=== PATIENT | female | born 1950 | race Caucasian/White ===

== ENCOUNTER 2017-01-15 19:32 | Emergency (ER) | payer MEDICARE ==
[2017-01-15] MEDS ORDERED: predniSONE 20 MG TAB ONE (20:48)
== END 2017-01-15 21:00 | disposition home or self-care (01) ==
LOC: ERS 19:32
DX: T78.40XA Allergy, unspecified, initial encounter (principal); G47.30 Sleep apnea, unspecified; I11.0 Hypertensive heart disease with heart failure; I50.9 Heart failure, unspecified; E78.5 Hyperlipidemia, unspecified
CPT/HCPCS: 99282; J7506

== ENCOUNTER 2017-02-02 06:11 | Inpatient (IN) | payer MEDICARE ==
[2017-02-02 07:27] LABS: #Lymphocytes 0.3 thou/uL (1.20-3.40); #Monocytes 0.3 thou/uL (0.11-0.59); #Neutrophils 7.7 thou/uL (1.40-6.50); %Basophils 0.1 % (0.0-1.0); %Eosinophils 0.4 % (0.0-10.0); %Lymphocytes 3.4 % (21.0-51.0); %Monocytes 3.7 % (0.0-10.0); Hematocrit 33.5 % (36.0-47.0); Mean Platelet Volume 7.8 fL (7.4-10.4); Red Blood Cell (RBC) Count 3.66 mill/uL (4.20-5.40); White Blood Cell (WBC) Count 8.4 thou/uL (4.8-10.8)
[2017-02-02 07:42] LABS: Prothrombin Time 12.7 SEC (12.0-14.7)
[2017-02-02 07:50] LABS: ALT (SGPT) 30 U/L (8-55); AST (SGOT) 46 U/L (5-34); Alkaline Phosphatase 113 U/L (40-150); Anion Gap 15 mmol/L (10-20); BUN (Urea Nitrogen) 35 mg/dL (9.8-20.1); Bilirubin, Total 0.8 mg/dL (0.2-1.2); Calc. Creatinine Clearance 0 mL/min (70-130); Carbon Dioxide 24 mmol/L (23-31); Chloride 105 mmol/L (98-107); Estimated GFR-MDRD 57; Protein, Total 6.7 g/dL (6.0-8.3)
[2017-02-02 07:53] LABS: Troponin I Less than 0.010 ng/mL (< 0.028)
[2017-02-02 09:28] LABS: Bilirubin Negative (Negative); Blood, Urine Negative (Negative); Glucose, Urine (Dipstick) Negative (Negative); Ketone, Urine 15 mg/dL (Negative); Nitrite Negative (Negative); Protein, Urine (Dipstick) Trace mg/dL (Neg-Trace)
--- NOTE | 2017-02-02 09:51 | ULT ---
BILATERAL LOWER EXTREMITY VENOUS DUPLEX EXAM: History Bilateral lower extremity pain and edema. FINDINGS: Real-time color Doppler evaluation of the right and left lower extremities was performed from groin t o calf. This includes evaluation of the common femoral, superficial and profunda femoral, saphenous, popliteal, and trifurcation veins. This shows patent deep venous systems bilaterally. There is nor mal compressibility and augmentation. There is no evidence of DVT. IMPRESSION: No evidence of deep vein thrombosis of either lower extremity. POS: JEREMI[facility]
--- NOTE | 2017-02-02 10:04 | RAD ---
CHEST PORTABLE 1 VIEW: COMPARISON: 05/16/16 study. HISTORY: Shortness of breath. FINDINGS: Heart size appears slightly enlarged. There are increased perihilar lung markings with more confluen t infiltrate give to the right upper lobe and right base. IMPRESSION: Cardiomegaly with increased perihilar lung markings. Some of this could be related to edema, but I w ould favor that there is either coexistent pneumonia or all of these changes represent a pneumonic pr ocess. There is a more confluent right upper lobe parenchymal change which does not have the appeara nce of edema and some bibasilar lung changes also present greater in the right base. POS: [facility]
[2017-02-02] MEDS ORDERED: Furosemide 20 MG/2 ML VIAL ONE (10:39)
--- NOTE | 2017-02-02 12:05 | HP ---
HISTORY OF PRESENT ILLNESS: Mrs. Manuel is a 66 years old woman. She came to this facilit y earlier today, because of increasing shortness of breath, which she has been experimenting for the last 4 days or so. She denies any associated fever. Denies any chest pain, and also she has been lance ving some dry cough. She has been admitted for evaluation and management. PAST MEDICAL HISTORY: Remarkable for hypertension, diabetes mellitus, congestive heart failure, and also peptic ulcer disease. She does also have a history of gastroesophageal reflux disease. PAST SURGICAL HISTORY: Remarkable for hysterectomy, gastric bypass, podiatric surgery involving the right foot, and also tonsillectomy. ALLERGIES: She claims to have allergies to PENICILLIN, DARVON, DEMEROL, and also ADHESIVE TAPES. SOCIAL HISTORY: She denies any history of cigarette smoking. Denies EtOH abuse. Denies drug abuse. FAMILY HISTORY: Reviewed and is not contributory. REVIEW OF SYSTEMS: Constitutional: Denies any fever. Denies any weakness. HEENT: She does have h eadache on and off. No ocular pain. No sore throat, no rhinorrhea, no earache, no epistaxis. Neck: No neck pain, no neck stiffness. Cardiovascular: Admits to shortness of breath. No chest pain. Pulmonary: Dry cough. Gastrointestinal: No nausea. No vomiting. She had diarrhea 2 days ago. Mu sculoskeletal: Admits to arthritis. Skin: No rash. No itching. Hematology: No abnormal bleeding , no ecchymosis. Lymphatic: No palpable lymphadenopathy, no painful lymphadenopathy. Endocrinology : No heat or cold intolerance. No polyuria, polydipsia, polyphagia. Allergies: No hayfever. Psyc hiatric: No anxiety and no depression. Neurological: No seizure. Genitourinary: Some dysuria. S he was treated for UTI recently. PHYSICAL EXAMINATION: GENERAL: At the current time, she is alert, oriented, morbidly obese, dyspneic at rest, receiving ox ygen via nasal cannula. LATEST VITAL SIGNS: Show a temperature of 98.7, pulse rate 88, respiratory rate 16, blood pressure 1 48/74. HEENT: Her head is normocephalic and atraumatic. Both her pupils are equally reactive. Ears and no se normal. Oral mucosa is moist. Pharyngeal area is clear with no exudate, no hyperemia. NECK: Supple. There is no distention of jugular vein. No lymphadenopathy felt. Thyroid gland not palpable. There is no carotid bruit. CHEST: Symmetrical with regular S1, S2. LUNGS: Clear. ABDOMEN: Soft. Bowel sounds heard. We could not appreciate any organomegaly. There is no focal ar ea of tenderness. EXTREMITIES: Limbs show no edema. She has varicose vein in both lower extremities. NEUROLOGICAL: She moves all extremities well. LABORATORY DATA: Her CBC showed WBC of 8.4, hemoglobin of 10.7, hematocrit of 32.5, MCV of 91.5, ty telets of 178. PT was noticed to be 12.7. Chemistry and electrolytes show sodium of 140, potassium 3.9, chloride 105, CO2 of 24, BUN 35, creatinine 0.97, glucose 131, calcium 9, magnesium 1.8, total b ilirubin 0.8, AST 46, ALT 30, alkaline phosphatase 113. Troponin less than 0.01. BNP is 238. Total protein 6.7, albumin 3.7, globulin 3.0. Urinalysis shows specific gravity of 1.015, pH of 7, ketone s 15 mg per deciliter, and nitrite negative, leukocyte esterase negative. Chest x-ray was reported t o show a slightly enlarged heart and also very increased perihilar markings which, according to her r eport, can be edema and also associated with coexistent pneumonia, which involved in the right upper lobe. I did review her chest x-ray. She has diffuse right upper lobe infiltrate suggestive of possi ble aspiration and I did talk to the patient, who described some symptoms consistent with aspiration and also some edema, associated congestive heart failure according to our estimate. ASSESSMENT: This is a 66 years old woman with history of hypertension; diabetes mellitus; congestive heart failure; peptic ulcer disease; morbid obesity, status post gastric bypass, remote; w ho has been admitted with increasing shortness of breath. Chest x-ray shows right upper lobe pneumon ia, suggests possibly aspiration along with chronic heart failure. Patient will be admitted to telem etry floor. Please see orders.
[2017-02-02] MEDS ORDERED: cefTRIAXone Sodium 1,000 MG in Syringe 0 ML IVPB SCH (13:08)
[2017-02-02 14:26] VITALS: BMI 57.5
[2017-02-02 14:38] LABS: Troponin I 0.013 ng/mL (< 0.028)
[2017-02-02] MEDS: Gabapentin 300 MG CAP PO SCH ×2 (14:57→21:03)
[2017-02-02] MEDS: metroNIDAZOLE 500 MG in Premix Bag 1 BAG IVPB SCH ×2 (14:57→21:03)
[2017-02-02] MEDS: Furosemide 20 MG/2 ML VIAL SLOW IVP SCH (14:58)
[2017-02-02] MEDS: Pramipexole Di-HCl 1 MG TAB PO SCH (21:03)
[2017-02-02] MEDS: Pravastatin Sodium 40 MG TAB PO SCH (21:03)
[2017-02-03] MEDS: metroNIDAZOLE 500 MG in Premix Bag 1 BAG IVPB SCH ×4 (02:40→20:20)
[2017-02-03] MEDS: Levothyroxine Sodium 25 MCG TAB PO SCH (06:21)
[2017-02-03] MEDS: Furosemide 20 MG/2 ML VIAL SLOW IVP SCH ×2 (06:21→14:14)
[2017-02-03] MEDS: Gabapentin 300 MG CAP PO SCH ×3 (08:40→20:19)
[2017-02-03] MEDS: Enoxaparin Sodium 40 MG/0.4 ML SYRINGE SC SCH (08:40)
[2017-02-03] MEDS: Magnesium Oxide 400 MG TAB PO SCH (08:40)
[2017-02-03 10:40] LABS: #Eosinphils 0.1 thou/uL (0.0-0.7); #Lymphocytes 0.6 thou/uL (1.20-3.40); #Monocytes 0.4 thou/uL (0.11-0.59); #Neutrophils 4.9 thou/uL (1.40-6.50); %Basophils 0.1 % (0.0-1.0); %Eosinophils 1.7 % (0.0-10.0); %Lymphocytes 10.4 % (21.0-51.0); %Monocytes 6.6 % (0.0-10.0); Hematocrit 35.3 % (36.0-47.0); Mean Platelet Volume 7.4 fL (7.4-10.4); Red Blood Cell (RBC) Count 3.81 mill/uL (4.20-5.40); White Blood Cell (WBC) Count 6.1 thou/uL (4.8-10.8)
[2017-02-03] MEDS: cefTRIAXone\\ROCEPHIN 1 GM, Syringe 0.4 ML in Sterile Water 9.6 ML SLOW IVP SCH (10:48)
[2017-02-03 11:02] LABS: Anion Gap 10 mmol/L (10-20); BUN (Urea Nitrogen) 23 mg/dL (9.8-20.1); Calc. Creatinine Clearance 103 mL/min (70-130); Calcium 8.8 mg/dL (7.8-10.44); Carbon Dioxide 30 mmol/L (23-31); Chloride 102 mmol/L (98-107); Estimated GFR-MDRD 51
--- NOTE | 2017-02-03 13:15 | PDOC.PN ---
- Subjective Encounter Start Date: 02/03/17 Encounter Start Time: 13:14 -: old records requested/rev Pt seen and examined - Objective Resuscitation Status: Resuscitation Status FULL:Full Resuscitation MAR Reviewed: Yes Vital Signs & Weight: Vital Signs (12 hours) Temp Pulse Resp BP Pulse Ox 02/03/17 11:50 98.3 F 71 14 130/58 L 96 02/03/17 09:43 97.9 F 81 14 126/74 95 02/03/17 08:40 97.9 F 81 14 95 02/03/17 08:06 97.5 F L 70 16 182/62 H 92 L 02/03/17 04:00 98 F 76 16 120/63 97 Weight Weight 285 lb I&O: 02/02/17 02/03/17 02/04/17 06:59 06:59 06:59 Intake Total 1465 Output Total 200 Balance 1265 Result Diagrams: 02/03/17 10:32 02/03/17 10:32 Additional Labs: Accuchecks 02/03/17 11:12 POC Glucose 153 H Radiology Reviewed by me: Yes (2V CXR today markedly improved) EKG Reviewed by me: Yes Phys Exam - Physical Examination Constitutional: NAD HEENT: PERRLA, moist MMs, sclera anicteric, oral pharynx no lesions Neck: no nodes, no JVD, supple Respiratory: no wheezing, no rhonchi faint bibasilar and right posterior upper rales Cardiovascular: RRR, no rub 3/6 HSM RUSB Gastrointestinal: soft, non-tender, no distention, positive bowel sounds Musculoskeletal: pulses present, edema present Neurological: non-focal, normal sensation, moves all 4 limbs Lymphatic: no nodes Psychiatric: normal affect, A&O x 3 Skin: no rash, normal turgor, cap refill <2 seconds Dx/Plan (1) Acute on chronic systolic CHF (congestive heart failure) Code(s): I50.23 - ACUTE ON CHRONIC SYSTOLIC (CONGESTIVE) HEART FAILURE Status : Acute (2) Essential hypertension Code(s): I10 - ESSENTIAL (PRIMARY) HYPERTENSION Status: Chronic (3) Physical deconditioning Code(s): R53.81 - OTHER MALAISE Status: Chronic (4) Diabetes mellitus Code(s): E11.9 - TYPE 2 DIABETES MELLITUS WITHOUT COMPLICATIONS Status: Chronic Qualifiers: Diabetes mellitus type: type 2 Diabetes mellitus complication status: without complication 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 insulin use: without intermediate use Qualified Code(s): E11.9 - Type 2 diabetes mellitus without complications (5) HLD (hyperlipidemia) Code(s): E78.5 - HYPERLIPIDEMIA, UNSPECIFIED Status: Chronic Qualifiers: Hyperlipidemia type: unspecified Qualified Code(s): E78.5 - Hyperlipidemia , unspecified (6) HTN (hypertension) Code(s): I10 - ESSENTIAL (PRIMARY) HYPERTENSION Status: Chronic Qualifiers: Hypertension type: essential hypertension Qualified Code(s): I10 - Essential (primary) hypertension (7) Morbid obesity Code(s): E66.01 - MORBID (SEVERE) OBESITY DUE TO EXCESS CALORIES Status: Chronic (8) JONATHAN (obstructive sleep apnea) Code(s): G47.33 - OBSTRUCTIVE SLEEP APNEA (ADULT) (PEDIATRIC) Status: Chronic - Plan cont current plan of care, 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 doubt CAP, CXR markedly improved overnight, good UOP. get accurate daily weight and I/Os. Echo pending. if abnormal or changed, will ask Dr Worthy to evaluate. If stable, then home in 102 days. biomarkers negative. No fever , WBC normal. AM labs ordered
--- NOTE | 2017-02-03 13:54 | RAD ---
PA AND LATERAL OF THE CHEST: INDICATION: Shortness of breath, dyspnea on exertion. FINDINGS: There is airspace consolidation of the right upper lobe and portions of the right lower lobe. The le ft lung is clear. There is cardiomegaly. No acute osseous abnormality is evident. IMPRESSION: Right lung pneumonia. Radiographic followup to resolution is recommended. POS: [facility]
[2017-02-03] MEDS: Nystatin Powder 15 GM BOT TOP PRN (14:15)
[2017-02-03] MEDS: Pramipexole Di-HCl 1 MG TAB PO SCH (20:20)
[2017-02-03] MEDS: Pravastatin Sodium 40 MG TAB PO SCH (20:20)
[2017-02-04] MEDS: metroNIDAZOLE 500 MG in Premix Bag 1 BAG IVPB SCH ×2 (02:20→08:36)
[2017-02-04 04:39] LABS: #Eosinphils 0.1 thou/uL (0.0-0.7); #Lymphocytes 0.6 thou/uL (1.20-3.40); #Monocytes 0.5 thou/uL (0.11-0.59); #Neutrophils 3.2 thou/uL (1.40-6.50); %Basophils 0.1 % (0.0-1.0); %Eosinophils 2.2 % (0.0-10.0); %Lymphocytes 13.3 % (21.0-51.0); %Monocytes 10.4 % (0.0-10.0); Hematocrit 30.5 % (36.0-47.0); Mean Platelet Volume 8.1 fL (7.4-10.4); Red Blood Cell (RBC) Count 3.32 mill/uL (4.20-5.40); White Blood Cell (WBC) Count 4.3 thou/uL (4.8-10.8)
[2017-02-04 05:06] LABS: Anion Gap 12 mmol/L (10-20); BUN (Urea Nitrogen) 25 mg/dL (9.8-20.1); Calc. Creatinine Clearance 111 mL/min (70-130); Calcium 8.2 mg/dL (7.8-10.44); Carbon Dioxide 31 mmol/L (23-31); Chloride 101 mmol/L (98-107); Estimated GFR-MDRD 56
[2017-02-04] MEDS: Levothyroxine Sodium 25 MCG TAB PO SCH (06:14)
[2017-02-04] MEDS: Furosemide 20 MG/2 ML VIAL SLOW IVP SCH ×2 (06:14→15:01)
[2017-02-04] MEDS: Gabapentin 300 MG CAP PO SCH ×3 (08:32→20:10)
[2017-02-04] MEDS: Enoxaparin Sodium 40 MG/0.4 ML SYRINGE SC SCH (08:33)
[2017-02-04] MEDS: Magnesium Oxide 400 MG TAB PO SCH (08:37)
[2017-02-04] MEDS: cefTRIAXone\\ROCEPHIN 1 GM, Syringe 0.4 ML in Sterile Water 9.6 ML SLOW IVP SCH (10:22)
--- NOTE | 2017-02-04 12:14 | PDOC.PN ---
- Subjective Encounter Start Date: 02/04/17 Encounter Start Time: 10:15 PT did well overnight, breathing better today. PT is tired as she just got done with PT/OT. PT recommended HHC with PT/OT, ordered qand set up with [facility] for discharge. No F/c, no N/V/D/c,no CP, dome LOWE, no orthopnea or PND, no cough or sputum 10 point ROS performed and neg for all systems except as per HPI above - Objective Resuscitation Status: Resuscitation Status FULL:Full Resuscitation MAR Reviewed: Yes Vital Signs & Weight: Vital Signs (12 hours) Temp Pulse Resp BP Pulse Ox 02/04/17 08:37 98.3 F 75 16 94 L 02/04/17 08:00 98.3 F 75 16 123/63 94 L 02/04/17 04:00 98.1 F 69 16 108/61 92 L Weight Weight 281 lb 14.4 oz I&O: 02/03/17 02/04/17 02/05/17 06:59 06:59 06:59 Intake Total 1465 2480 Output Total 200 Balance 1265 2480 Result Diagrams: 02/04/17 03:32 02/04/17 03:32 Radiology Reviewed by me: Yes EKG Reviewed by me: Yes Phys Exam - Physical Examination Constitutional: NAD HEENT: PERRLA, moist MMs, sclera anicteric, oral pharynx no lesions Neck: no nodes, no JVD, supple, full ROM Respiratory: no wheezing, no rales, no rhonchi, clear to auscultation bilateral Cardiovascular: RRR, no rub HSM stable Gastrointestinal: soft, non-tender, no distention, positive bowel sounds Musculoskeletal: pulses present, edema present Neurological: non-focal, normal sensation, moves all 4 limbs Lymphatic: no nodes Psychiatric: normal affect, A&O x 3 Skin: no rash, normal turgor, cap refill <2 seconds Dx/Plan (1) Acute on chronic systolic CHF (congestive heart failure) Code(s): I50.23 - ACUTE ON CHRONIC SYSTOLIC (CONGESTIVE) HEART FAILURE Status : Acute Comment: EF improved form last echo. 5-0500% now. DDysfinction present. severe MR and mod TR now compared with mod and mild prior. Will ask Dr Worthy to compare (2) Essential hypertension Code(s): I10 - ESSENTIAL (PRIMARY) HYPERTENSION Status: Chronic (3) Physical deconditioning Code(s): R53.81 - OTHER MALAISE Status: Chronic Comment: physical deconditioning, PT and OT at home post discharge (4) Diabetes mellitus Code(s): E11.9 - TYPE 2 DIABETES MELLITUS WITHOUT COMPLICATIONS Status: Chronic Qualifiers: Diabetes mellitus type: type 2 Diabetes mellitus complication status: without complication Diabetes mellitus alf insulin use: without watermelon inspector use Qualified Code(s): E11.9 - Type 2 diabetes mellitus without complications (5) HLD (hyperlipidemia) Code(s): E78.5 - HYPERLIPIDEMIA, UNSPECIFIED Status: Chronic Qualifiers: Hyperlipidemia type: unspecified Qualified Code(s): E78.5 - Hyperlipidemia , unspecified (6) HTN (hypertension) Code(s): I10 - ESSENTIAL (PRIMARY) HYPERTENSION Status: Chronic Qualifiers: Hypertension type: essential hypertension Qualified Code(s): I10 - Essential (primary) hypertension (7) Morbid obesity Code(s): E66.01 - MORBID (SEVERE) OBESITY DUE TO EXCESS CALORIES Status: Chronic (8) JONATHAN (obstructive sleep apnea) Code(s): G47.33 - OBSTRUCTIVE SLEEP APNEA (ADULT) (PEDIATRIC) Status: Chronic - Plan * .
[2017-02-04] MEDS ORDERED: Furosemide 40 MG TAB PO SCH (14:45)
[2017-02-04] MEDS: Pravastatin Sodium 40 MG TAB PO SCH (20:10)
[2017-02-04] MEDS: Pramipexole Di-HCl 1 MG TAB PO SCH (20:10)
[2017-02-05] MEDS: Levothyroxine Sodium 25 MCG TAB PO SCH (05:43)
[2017-02-05] MEDS: Furosemide 40 MG TAB PO SCH ×2 (05:43→14:46)
[2017-02-05 06:26] LABS: #Eosinphils 0.2 thou/uL (0.0-0.7); #Lymphocytes 0.6 thou/uL (1.20-3.40); #Monocytes 0.3 thou/uL (0.11-0.59); #Neutrophils 2.8 thou/uL (1.40-6.50); %Basophils 0.4 % (0.0-1.0); %Eosinophils 3.8 % (0.0-10.0); %Lymphocytes 15.8 % (21.0-51.0); %Monocytes 8.5 % (0.0-10.0); Hematocrit 34.4 % (36.0-47.0); Mean Platelet Volume 7.6 fL (7.4-10.4); Red Blood Cell (RBC) Count 3.77 mill/uL (4.20-5.40); White Blood Cell (WBC) Count 3.9 thou/uL (4.8-10.8)
[2017-02-05 06:31] LABS: Anion Gap 11 mmol/L (10-20); BUN (Urea Nitrogen) 22 mg/dL (9.8-20.1); Calc. Creatinine Clearance 126 mL/min (70-130); Calcium 8.6 mg/dL (7.8-10.44); Carbon Dioxide 31 mmol/L (23-31); Chloride 100 mmol/L (98-107); Estimated GFR-MDRD 66; Magnesium 1.9 mg/dL (1.6-2.6)
[2017-02-05] MEDS: Enoxaparin Sodium 40 MG/0.4 ML SYRINGE SC SCH (08:33)
[2017-02-05] MEDS: Magnesium Oxide 400 MG TAB PO SCH (08:33)
[2017-02-05] MEDS: Gabapentin 300 MG CAP PO SCH ×3 (08:33→21:13)
--- NOTE | 2017-02-05 14:41 | PDOC.PN ---
- Subjective Encounter Start Date: 02/05/17 Encounter Start Time: 09:45 Pt seen and examined earlier on rounds, 45 minutes spent at the bedside discussing with patient her daughter. Pt breathing much better. up with PT earlier, feels tired, but overall much improved. no F/C, no cough, no N/V/D/C. i have contacted Dr Worthy, he [place] see the patient this afternoon regarding improved Ef but descriptively worsening TV and MV regurg After my visit and before this note, Pt developed sinus jose, asymptomatic, with HR into the mid 30s. transferred to tele. Not on any chronotropic agents. discussed CHF clinic with pt and liason, being arranged - Objective Resuscitation Status: Resuscitation Status FULL:Full Resuscitation MAR Reviewed: Yes Vital Signs & Weight: Vital Signs (12 hours) Temp Pulse Resp BP Pulse Ox 02/05/17 12:50 98 02/05/17 11:05 98.1 F 37 L 16 128/53 L 96 02/05/17 08:33 97.8 F 67 16 97 02/05/17 07:05 97.8 F 67 16 122/76 97 02/05/17 04:00 97.8 F 72 18 127/79 94 L Weight Weight 280 lb I&O: 02/04/17 02/05/17 02/06/17 06:59 06:59 06:59 Intake Total 2480 2225 Balance 2480 2225 Result Diagrams: 02/05/17 05:51 02/05/17 05:51 Radiology Reviewed by me: Yes EKG Reviewed by me: Yes Phys Exam - Physical Examination Constitutional: NAD HEENT: PERRLA, moist MMs, sclera anicteric, oral pharynx no lesions Neck: no nodes, no JVD, supple, full ROM Respiratory: no wheezing, no rales, no rhonchi, clear to auscultation bilateral Cardiovascular: RRR, no rub murmurs unchanged Gastrointestinal: soft, non-tender, no distention, positive bowel sounds Musculoskeletal: pulses present, edema present Neurological: non-focal, normal sensation, moves all 4 limbs Lymphatic: no nodes Psychiatric: normal affect, A&O x 3 Skin: no rash, normal turgor, cap refill <2 seconds Dx/Plan (1) Acute on chronic systolic CHF (congestive heart failure) Code(s): I50.23 - ACUTE ON CHRONIC SYSTOLIC (CONGESTIVE) HEART FAILURE Status : Acute Comment: EF improved form last echo. 50-55% now. DDysfinction present. severe MR and mod TR now compared with mod and mild prior. 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 use: without petroleum terminal plant operator use Qualified Code(s): E11.9 - Type 2 diabetes mellitus without complications (5) HLD (hyperlipidemia) Code(s): E78.5 - HYPERLIPIDEMIA, UNSPECIFIED Status: Chronic Qualifiers: Hyperlipidemia type: unspecified Qualified Code(s): E78.5 - Hyperlipidemia , unspecified (6) HTN (hypertension) Code(s): I10 - ESSENTIAL (PRIMARY) HYPERTENSION Status: Chronic Qualifiers: Hypertension type: essential hypertension Qualified Code(s): I10 - Essential (primary) hypertension (7) Morbid obesity Code(s): E66.01 - MORBID (SEVERE) OBESITY DUE TO EXCESS CALORIES Status: Chronic (8) JONATHAN (obstructive sleep apnea) Code(s): G47.33 - OBSTRUCTIVE SLEEP APNEA (ADULT) (PEDIATRIC) Status: Chronic - Plan cont current plan of care, plan discussed w/ family, PT/OT * .
[2017-02-05] MEDS: Pravastatin Sodium 40 MG TAB PO SCH (21:14)
[2017-02-05] MEDS: Pramipexole Di-HCl 1 MG TAB PO SCH (21:14)
[2017-02-06] MEDS: Levothyroxine Sodium 25 MCG TAB PO SCH (05:45)
[2017-02-06] MEDS: Furosemide 40 MG TAB PO SCH ×2 (05:45→15:09)
--- NOTE | 2017-02-06 05:54 | CON ---
DATE OF CONSULTATION: 02/05/2017 HISTORY OF PRESENT ILLNESS: Sandra Manuel is a 66-year-old white female that I initially evaluated in the hospital in 04/2015. She was admitted with increased weakness, bradycardia, ventricular bigeminy, and severe anemia. In 2011, she had been hospitalized in [facility] and had an ejection fraction of 35% at that time. When she was admitted in 04/2015, she has been having 2-3 days of very odorous black diarrhea 1 month prior to admission. Due to bradycardia, carvedilol dose was reduced. Hemoglobin dropped from 9.8 on admission to 8.0. Echocardiogram during that admission revealed left atrial and left ventricular enlargement, mild left ventricular systolic dysfunction with ejection fraction of 40% to 45%, mild tricuspid regurgitation, and moderate mitral regurgitation. She underwent EGD, which revealed esophageal erosions, a large and deep ulceration just below the anastomotic site of Carrington-en-Y. No active bleeding was seen. Colonoscopy revealed soft small ulceration of the ileocecal valve. I was feeling during that admission that she will eventually need cardiac catheterization with her left ventricular dysfunction and ventricular ectopy. She underwent repeat EGD which showed healing of the area. She then underwent cardiac catheterization on 05/23/2016. This revealed mild global left ventricular hypokinesis with ejection fraction of 40% to 45%. There were proximal calcifications in the LAD and the RCA. There was 70% first diagonal, 30% proximal circumflex, and 30% mid-RCA stenosis. It was felt that she should be treated medically. She has continued to be followed in the office. She complained of leg pain and had a right leg ulcer and was found to have right great saphenous vein venous reflux. She also developed a cough with lisinopril and this was changed to losartan. With her right leg venous ulcer, she underwent radiofrequency ablation of the right great saphenous vein on 01/10/2017. When she returned for follow-up on 01/13/2017, she had not taken Lasix for an unclear period of time and she was told to restart that. Patient now is admitted with increased shortness of breath. She denies any chest discomfort, lightheadedness, dizziness, or syncope. She has been using compression device on each leg with dramatic improvement in her edema. She was brought to the hospital and given intravenous diuretics, is admitted for further evaluation. PAST MEDICAL HISTORY: Diabetes; hypertension; hyperlipidemia; morbid obesity; obstructive sleep apnea, on CPAP; history of pneumonia; several falls in the past; and bilateral rotator cuff syndrome. OPERATIONS: Carrington-en-Y, laparoscopic gastric bypass in 2001, hysterectomy, cholecystectomy. MEDICATIONS: Acetaminophen 1000 mg b.i.d., albuterol 2 puffs q.4 hours p.r.n., aspirin 81 daily, carvedilol 3.125 b.i.d., Zyrtec 10 mg p.r.n., Flexeril 10 mg t.i.d. p.r.n., iron sulfate 45 daily, Neurontin 300 mg t.i.d., levothyroxine 25 mcg daily, magnesium oxide 400 daily, pantoprazole 40 mg at bedtime, potassium gluconate 595 mg daily, pravastatin 40 at bedtime, furosemide 40 daily. ALLERGIES: DEMEROL, DARVON, and PENICILLIN. FAMILY HISTORY: Brother had myocardial infarction. SOCIAL HISTORY: She does not smoke or drink. She is . Her is to undergo bypass surgery tomorrow. REVIEW OF SYSTEMS: Twelve point review of systems otherwise unremarkable. PHYSICAL EXAMINATION: VITAL SIGNS: Blood pressure 134/60, pulse 79. HEENT: PERRL. NECK: Supple. CHEST: Clear. CARDIAC: S1 and S2 are normal, without any S3 or S4. There is a 1-2/6 systolic murmur. ABDOMEN: Morbidly obese. Normal bowel sounds. No tenderness. EXTREMITIES: Revealed trace pretibial edema. NEUROLOGIC: Grossly intact. LABORATORY AND DIAGNOSTIC DATA: EKG revealed normal sinus rhythm with frequent premature complexes and a left bundle branch block pattern. This has been seen before. Hemoglobin 11.0, hematocrit 34.4, white count 3100, platelets 200,000. INR 0.9. Sodium 138, potassium 3.5, chloride 100, carbon dioxide 31, BUN 22, creatinine 0.86. Cardiac enzymes were unremarkable. Echocardiogram revealed the study to be technically difficult. Ejection fraction was 50% to 55% with evidence of diastolic dysfunction, left atrium was mildly dilated, severe mitral regurgitation, mild tricuspid regurgitation. IMPRESSION: 1. Acute on chronic diastolic heart failure. 2. Severe mitral regurgitation. 3. Coronary artery disease with the most significant lesion being a 70% lesion at the ostium of the first diagonal. 4. Venous insufficiency, status post radiofrequency ablation of the right great saphenous vein. 5. History of gastrointestinal bleed in 04/2015. 6. Ventricular bigeminy. 7. Left bundle branch block. 8. Hypertension. 9. Diabetes. 10. Hyperlipidemia. 11. Positive family history. 12. Morbid obesity. 13. Obstructive sleep apnea. PLAN: Patient will continue to be diuresed. She probably needs to be on higher dose of diuretics at home. Also, she currently is drinking over 2 liters per day and she has restricted fluids to 1500 mL per day. MTDD
[2017-02-06 06:03] LABS: #Eosinphils 0.2 thou/uL (0.0-0.7); #Lymphocytes 0.8 thou/uL (1.20-3.40); #Monocytes 0.4 thou/uL (0.11-0.59); #Neutrophils 2.3 thou/uL (1.40-6.50); %Basophils 0.1 % (0.0-1.0); %Eosinophils 4.7 % (0.0-10.0); %Lymphocytes 22.2 % (21.0-51.0); %Monocytes 10.9 % (0.0-10.0); Hematocrit 35.2 % (36.0-47.0); Mean Platelet Volume 7.2 fL (7.4-10.4); Red Blood Cell (RBC) Count 3.85 mill/uL (4.20-5.40); White Blood Cell (WBC) Count 3.6 thou/uL (4.8-10.8)
[2017-02-06 06:26] LABS: Anion Gap 12 mmol/L (10-20); BUN (Urea Nitrogen) 21 mg/dL (9.8-20.1); Calc. Creatinine Clearance 109 mL/min (70-130); Calcium 8.8 mg/dL (7.8-10.44); Carbon Dioxide 30 mmol/L (23-31); Chloride 98 mmol/L (98-107); Estimated GFR-MDRD 56; Magnesium 1.6 mg/dL (1.6-2.6)
[2017-02-06] MEDS: Enoxaparin Sodium 40 MG/0.4 ML SYRINGE SC SCH (08:17)
[2017-02-06] MEDS: Magnesium Oxide 400 MG TAB PO SCH (08:17)
[2017-02-06] MEDS: Gabapentin 300 MG CAP PO SCH ×3 (08:17→21:54)
[2017-02-06] MEDS ORDERED: Cyclobenzaprine 10 MG TAB PO PRN (19:37)
[2017-02-06] MEDS ORDERED: Loratadine 10 MG TAB PO PRN (19:37)
[2017-02-06] MEDS ORDERED: PROVENTIL INHALER 6.7 G (200 INHALATIONS) INH PRN (19:37)
--- NOTE | 2017-02-06 19:38 | PDOC.PN ---
- Subjective Encounter Start Date: 02/06/17 Encounter Start Time: 19:10 Subjective: f/u A/C diast CHF with EF 55% but valvular dz TR and MR. Mar[place] with -: Lasix 40mg BID with 8lb weight loss since admit. - Objective Resuscitation Status: Resuscitation Status FULL:Full Resuscitation MAR Reviewed: Yes Vital Signs & Weight: Vital Signs (12 hours) Temp Pulse Pulse Pulse Resp BP BP 02/06/17 15:38 98.9 F 76 17 02/06/17 15:06 84 77 138/65 129/78 02/06/17 12:45 97.8 F 86 18 02/06/17 07:53 98 F 82 18 BP Pulse Ox Pulse Ox Pulse Ox 02/06/17 15:38 141/85 H 97 02/06/17 15:06 97 97 02/06/17 12:45 111/51 L 98 02/06/17 07:53 134/58 L 97 Weight Weight 277 lb 4.8 oz I&O: 02/05/17 02/06/17 02/07/17 06:59 06:59 06:59 Intake Total 2225 800 Balance 2225 800 Result Diagrams: 02/06/17 05:23 02/06/17 05:23 Additional Labs: Microbiology 02/02/17 07:15 Venous blood - Left Hand Blood Culture - Preliminary NO GROWTH AT 48 HOURS 02/02/17 06:55 Venous blood - Left Hand Blood Culture - Preliminary NO GROWTH AT 48 HOURS Laboratory Tests 02/04/17 02/05/17 03:32 05:51 Hgb 9.6 L 11.0 L EKG Reviewed by me: Yes (Tele - SR in 60's) Phys Exam - Physical Examination Constitutional: NAD HEENT: PERRLA, oral pharynx no lesions Neck: no JVD, supple diminished in bases Respiratory: no wheezing Cardiovascular: RRR Gastrointestinal: soft, non-tender, no distention, positive bowel sounds Musculoskeletal: pulses present, edema present Neurological: normal sensation, moves all 4 limbs Psychiatric: A&O x 3 Skin: normal turgor, cap refill <2 seconds Dx/Plan (1) Diastolic CHF due to valvular disease Code(s): I38 - ENDOCARDITIS, VALVE UNSPECIFIED; I50.30 - UNSPECIFIED DIASTOLIC ( CONGESTIVE) HEART FAILURE Status: Acute Comment: EF 50-55%, Lasix 40mg BID (2) CKD (chronic kidney disease) stage 3, GFR 30-59 ml/min Status: Chronic Comment: Stable, avoid nephrotoxic meds and contrast media (3) HLD (hyperlipidemia) Code(s): E78.5 - HYPERLIPIDEMIA, UNSPECIFIED Status: Chronic Qualifiers: Hyperlipidemia type: unspecified Qualified Code(s): E78.5 - Hyperlipidemia , unspecified (4) HTN (hypertension) Code(s): I10 - ESSENTIAL (PRIMARY) HYPERTENSION Status: Chronic Qualifiers: Hypertension type: essential hypertension Qualified Code(s): I10 - Essential (primary) hypertension Comment: Stable, monitor trend (5) Morbid obesity Code(s): E66.01 - MORBID (SEVERE) OBESITY DUE TO EXCESS CALORIES Status: Chronic (6) Physical deconditioning Code(s): R53.81 - OTHER MALAISE Status: Chronic Comment: physical deconditioning, PT and OT at home post discharge - Plan 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
[2017-02-06] MEDS ORDERED: Potassium Chloride 20 MEQ TAB PO SCH (20:00)
[2017-02-06] MEDS: Pravastatin Sodium 40 MG TAB PO SCH (21:54)
[2017-02-06] MEDS: Pramipexole Di-HCl 1 MG TAB PO SCH (21:54)
[2017-02-06] MEDS: Carvedilol 3.125 MG TAB PO SCH (21:55)
[2017-02-07] MEDS: Levothyroxine Sodium 25 MCG TAB PO SCH (06:27)
[2017-02-07] MEDS: Furosemide 40 MG TAB PO SCH ×2 (06:28→14:49)
[2017-02-07] MEDS ORDERED: Ferrous Gluconate 324 MG TAB PO SCH (08:00)
[2017-02-07] MEDS ORDERED: Cyanocobalamin (Vitamin B-12) 1,000 MCG TAB PO SCH (09:00)
[2017-02-07] MEDS: Carvedilol 3.125 MG TAB PO SCH (09:29)
[2017-02-07] MEDS: Potassium Chloride 20 MEQ TAB PO SCH ×2 (09:29→18:02)
[2017-02-07] MEDS: Nystatin Powder 15 GM BOT TOP PRN (09:30)
[2017-02-07] MEDS: Enoxaparin Sodium 40 MG/0.4 ML SYRINGE SC SCH (09:30)
[2017-02-07] MEDS: Magnesium Oxide 400 MG TAB PO SCH (09:30)
[2017-02-07] MEDS: Gabapentin 300 MG CAP PO SCH ×2 (09:30→14:49)
[2017-02-07 16:19] VITALS: BP 128/59; TEMP 97.9
--- NOTE | 2017-02-07 17:01 | DIS ---
DATE OF ADMISSION: 02/02/2017 DATE OF DISCHARGE: 02/07/2017 DISCHARGE DIAGNOSES: 1. Acute on chronic diastolic congestive heart failure with preserved ejection fraction of 50%-55%. 2. Chronic kidney disease, stage 3. 3. Hyperlipidemia. 4. Morbid obesity. 5. Hypertension, stable. 6. Physical deconditioning. 7. Hypothyroidism. CONSULTATIONS: Dr. Worthy with Cardiology Service. PERTINENT LABORATORY AND X-RAY FINDINGS: Potassium ranged between 3.2-3.9, creatinine ranged between 0.86-1.07. Troponin I negative x3. Magnesium level 1.8. CBC showed a white blood cell count rangi ng between 3.6-8.4, hemoglobin ranged between 9.6-11.1. Blood cultures x2 from 02/02/2017 showed no growth at 5 days. Portable chest x-ray dated 02/02/2017 showed increased perihilar lung markings wit h cardiomegaly. Bilateral lower extremity venous Doppler study dated 02/02/2017 showed no evidence f or DVT. A 2D transthoracic echocardiogram dated 02/03/2017 showed ejection fraction of 50%-55%. Maria Del Rosario hnically limited exam. Diastolic dysfunction noted. Left atrium with mild dilation. Severe mitral valve regurgitation. HOSPITAL COURSE: The patient was initially admitted after presenting with shortness of breath and co ncern for volume overload in the context of congestive heart failure. The patient underwent 2D trans thoracic echocardiogram showing evidence of diastolic dysfunction with overall preserved ejection fra ction of 50%-55%. The patient was treated with IV Lasix with excellent diuresis throughout the hospi ronni course with an approximate 10-15 pound weight loss during the hospital course. The patient zara nued to diurese appropriately and symptomatically improved in the first 24-48 hours after admission. The patient was evaluated by the Cardiology service with recommendations for ongoing diuretic therap y, weight loss, and increased mobility. The patient was evaluated by the physical therapy service an d had been ambulatory up to 1000 feet by the time of discharge using a rolling walker. Due to cristela wallace's overall comorbid status, morbid obesity, and the limited functional state, patient was deemed an appropriate candidate for ongoing home health services including physical therapy. Overall, the carl kendall is clinically stable with telemetry monitoring showing sinus mechanism with premature ventricular contractions. The patient is ready for discharge on 02/07/2017. DISCHARGE MEDICATIONS: 1. ProAir HFA 2 puffs inhaled q.4-6 hours p.r.n. 2. Aspirin enteric coated 81 mg one tablet p.o. daily. 3. Coreg 3.125 mg p.o. b.i.d. 4. Zyrtec 10 mg one tablet p.o. daily. 5. Vitamin D3, 5000 units p.o. daily. 6. Vitamin B12, 5000 mcg sublingually daily. 7. Flexeril 10 mg p.o. t.i.d. p.r.n. 8. Ferrous sulfate 45 mg p.o. daily. 9. Lasix 40 mg p.o. b.i.d. 10. Gabapentin 300 mg p.o. t.i.d. 11. Probiotics 1 capsule p.o. daily. 12. Levothyroxine 25 mcg p.o. daily. 13. Magnesium oxide 400 mg p.o. daily. 14. Protonix 40 mg p.o. at bedtime. 15. K-Dur 40 mEq p.o. b.i.d. 16. Pramipexole 1 mg p.o. at bedtime. 17. Pravachol 40 mg p.o. at bedtime. FOLLOWUP: The patient will follow up with her primary care provider, Dr. Heather Cuellar within 7 days. The patient will follow up with Dr. Leroy Worthy with [facility] Cardiology Service and to [facility] his office for appointment time and date. CONDITION ON DISCHARGE: Stable. SPECIAL INSTRUCTIONS: Recommend follow up with [facility] at [facility]. The patient will follow up with [facility] for physical therapy after discharge. CONDITION ON DISCHARGE: Stable. ACTIVITY: Ad heather. Rolling walker for ambulation. DIET: Heart healthy. CODE STATUS: FULL. DISPOSITION: Home with [facility] on 02/07/2017.
--- NOTE | 2017-03-01 10:41 | EKG ---
Test Reason : Blood Pressure : / mmHG Vent. Rate : 092 BPM Atrial Rate : 092 BPM P-R Int : 154 ms QRS Dur : 166 ms QT Int : 434 ms P-R-T Axes : 037 -05 089 degrees QTc Int : 536 ms Sinus rhythm with Premature atrial complexes with Abberant conduction Left bundle branch block Abnormal ECG Confirmed by CRISS CARRINGTON M.D. ([id number]), editor magazine [employer]ENDRICKS ([id number]) on 03/01/2017 10:41:19 AM Referred By: Confirmed By:CRISS CARRINGTON M.D.
== END 2017-02-07 18:15 | disposition home health service (06) | DRG 291 ==
LOC: ERS 06:11 → ERHOLD 10:46 → SURG A 12:39 → 2SE 02-05 12:53 → 2NO 02-05 18:46
PROVIDERS: ADMIT Hospitalist; ATTEND Hospitalist
DX: I13.0 Hypertensive heart and chronic kidney disease with heart failure and stage 1 through stage 4 chronic kidney disease, or unspecified chronic kidney disease (principal); I50.33 Acute on chronic diastolic (congestive) heart failure; E11.22 Type 2 diabetes mellitus with diabetic chronic kidney disease; Z68.43 Body mass index [BMI] 50.0-59.9, adult; N18.3 Chronic kidney disease, stage 3 (moderate); E66.01 Morbid (severe) obesity due to excess calories; I08.1 Rheumatic disorders of both mitral and tricuspid valves; K21.9 Gastro-esophageal reflux disease without esophagitis; Z98.84 Bariatric surgery status; Z88.5 Allergy status to narcotic agent; Z88.0 Allergy status to penicillin; Z88.8 Allergy status to other drugs, medicaments and biological substances; E03.9 Hypothyroidism, unspecified; Z79.82 Long term (current) use of aspirin; G47.33 Obstructive sleep apnea (adult) (pediatric); I25.10 Atherosclerotic heart disease of native coronary artery without angina pectoris; I44.7 Left bundle-branch block, unspecified; K25.7 Chronic gastric ulcer without hemorrhage or perforation; I25.5 Ischemic cardiomyopathy; I49.3 Ventricular premature depolarization; I87.2 Venous insufficiency (chronic) (peripheral); E78.00 Pure hypercholesterolemia, unspecified; G25.81 Restless legs syndrome
CPT/HCPCS: 36415; 36416; 71010; 71020; 80048; 80053; 81003; 82553; 83735; 83880; 84484; 85025; 85610; 87040; 93005; 93010; 93306; 93798; 93970; 94760; 96374; 96375; A4216; G8978-GP-CJ; G8979-GP-CJ; G8980-GP-CJ; G8987-GO-CL; G8988-GO-CJ; J0696; J1650; J1940

== ENCOUNTER 2017-05-01 12:30 | Outpatient (CLI) | payer MEDICARE | END 2017-05-01 12:31 | disposition home or self-care (01) | LOC: BICMAMMO 12:30 | PROVIDERS: ATTEND Internal Medicine Geriatric Medicine | DX: Z12.31 Encounter for screening mammogram for malignant neoplasm of breast (principal); Z13.820 Encounter for screening for osteoporosis; M85.88 Other specified disorders of bone density and structure, other site | CPT/HCPCS: 77063; 77067; 77080 ==

== ENCOUNTER 2018-02-28 23:35 | Inpatient (IN) | payer MEDICARE ==
[2018-03-01 00:06] LABS: #Eosinphils 0.1 thou/uL (0.0-0.7); #Lymphocytes 0.9 thou/uL (1.20-3.40); #Monocytes 0.4 thou/uL (0.11-0.59); #Neutrophils 2.7 thou/uL (1.40-6.50); %Basophils 0.6 % (0.0-1.0); %Eosinophils 2.2 % (0.0-10.0); %Lymphocytes 22.6 % (21.0-51.0); %Monocytes 9.8 % (0.0-10.0); %Neutrophils 64.8 % (42.0-75.0); Hemoglobin 10.8 g/dL (12.0-16.0); Mean Corpuscular HGB CONC 32.6 g/dL (32.0-36.0); Mean Corpuscular Hemoglobin 28.9 pg (27.0-31.0); Mean Corpuscular Volume 88.8 fL (78.0-98.0); Mean Platelet Volume 8.4 fL (7.4-10.4); Platelet Count 180 thou/uL (130-400); RBC Distribution Width 13.6 % (11.5-14.5); Red Blood Cell (RBC) Count 3.75 mill/uL (4.20-5.40); White Blood Cell (WBC) Count 4.1 thou/uL (4.8-10.8)
[2018-03-01] MEDS ORDERED: Furosemide 40 MG/4 ML VIAL ONE (00:19)
[2018-03-01 00:27] LABS: ALT (SGPT) 16 U/L (8-55); AST (SGOT) 28 U/L (5-34); Albumin 3.9 g/dL (3.4-4.8); Alkaline Phosphatase 96 U/L (40-150); Anion Gap 14 mmol/L (10-20); BUN (Urea Nitrogen) 44 mg/dL (9.8-20.1); Bilirubin, Total 0.4 mg/dL (0.2-1.2); Calc. Creatinine Clearance 0 mL/min (70-130); Calcium 9.1 mg/dL (7.8-10.44); Carbon Dioxide 27 mmol/L (23-31); Chloride 102 mmol/L (98-107); Estimated GFR-MDRD 42; Globulin 3.1 g/dL (2.4-3.5); Glucose 161 mg/dL (80-115); Potassium 4.4 mmol/L (3.5-5.1); Sodium 139 mmol/L (136-145)
[2018-03-01] MEDS ORDERED: Sodium Chloride 0.9% 100 ML ONE (02:00)
[2018-03-01] MEDS ORDERED: cefTRIAXone\\ROCEPHIN 1 GM VIAL ONE (02:00)
[2018-03-01 04:19] VITALS: BMI 55.8
[2018-03-01] MEDS ORDERED: Senokot S 8.6-50 MG TAB PO PRN (04:35)
[2018-03-01] MEDS ORDERED: Bisacodyl 5 MG TAB PO PRN (04:35)
[2018-03-01] MEDS ORDERED: Zolpidem Tartrate 5 MG TAB PO PRN (04:35)
[2018-03-01] MEDS ORDERED: Acetaminophen 650 MG Suppository PR PRN (04:35)
[2018-03-01] MEDS ORDERED: Acetaminophen 325 MG TAB PO PRN (04:35)
[2018-03-01] MEDS ORDERED: Ondansetron ODT 4 MG TAB PO PRN ×2 (04:35→09:48)
[2018-03-01] MEDS ORDERED: Ondansetron PF 4 MG/2 ML Vial IVP PRN ×2 (04:35→09:48)
[2018-03-01] MEDS ORDERED: Furosemide 40 MG/4 ML VIAL SLOW IVP SCH (06:00)
--- NOTE | 2018-03-01 07:56 | RAD ---
PORTABLE AP CHEST: DATE: 03/01/2018. HISTORY: Shortness of breath, lower extremity edema, and ulcer wounds. COMPARISON: 02/03/2017. FINDINGS: The cardiac silhouette is magnified by projection but does appear enlarged. Pulmonary vasculature is also mildly increased. There is mild increased density in the right suprahilar region. Patchy dens ities were seen in this region on the prior exam. The left lung appears clear. Degenerative changes are seen in the spine. Vascular calcifications in the thoracic aorta. There is bilateral glenohume ral osteoarthropathy greater on the right. There appears to be mild deformity of the humeral head. The humeral also appears dislocated with the humeral head displaced inferiorly and medially with resp ect to the glenoid. However, this was also seen on views of the right shoulder on 09/04/2017. However , deformity of the humeral head is an interval change from the study on 09/04/2017. No other interval change. IMPRESSION: 1. Patchy increased density in the right suprahilar region. This could potentially represent superi mposition of structures including vasculature, but infiltrate in the right suprahilar region cannot b e entirely excluded. Followup PA and lateral chest x-ray is recommended. 2. Persistent anterior right shoulder dislocation. There was fragmentation in the region of the hum eral head on the prior study, but there is now flattening and deformity of the humeral head on today' s exam. CODE T POS: JEREMIAS
[2018-03-01] MEDS ORDERED: Aspirin 325 mg Enteric Coated Tablet PO SCH (09:00)
[2018-03-01] MEDS ORDERED: Famotidine/PF 20 mg/2ml Vial SLOW IVP SCH (09:00)
[2018-03-01] MEDS ORDERED: Famotidine 20 MG TAB PO SCH (09:00)
[2018-03-01] MEDS ORDERED: Cetirizine HCl 10 MG TAB PO PRN (09:48)
[2018-03-01] MEDS ORDERED: hydrALAZINE 20 MG/ML VIAL SLOW IVP PRN (09:48)
[2018-03-01] MEDS ORDERED: Dextrose 50% Abboject 50 ML SYRINGE SLOW IVP PRN (09:48)
[2018-03-01] MEDS ORDERED: HumaLOG 300 UNITS/3 ML VIAL SC PRN ×2 (09:48)
[2018-03-01] MEDS ORDERED: Dextrose 5% in Water 1,000 ML IV PRN (09:48)
--- NOTE | 2018-03-01 12:35 | HP ---
PRIMARY CARE PROVIDER: Heather Cuellar MD CHIEF COMPLAINT: Lower extremity swelling. HISTORY OF PRESENT ILLNESS: This is a 68-year-old female, who presents to [facility] Emergency Department complaining of increasing lower extremity swelling, decreased mobility with open blisters and fluid drainage from the lower extremities over the last week. The patient states she noted increasing weight gain up to 7 pounds with blisters forming on her lower extremities that were draining spontaneously. The patient apparently was evaluated by her primary care provider and told to increase her Lasix to 40 mg twice daily. The patient was also placed on Keflex after concern for local cellulitis of the lower extremities. The patient states she was consistent with the medications, however, noted no improvement in her lower extremity swelling or redness. The patient denied any documented fever at home, chills, or exposure history. The patient states she has had difficulty intermittently in the past with lower extremity swelling and was admitted to [facility] in January 2017 for a diastolic congestive heart failure exacerbation. The patient states she has had difficulty with maintaining an appropriate diet due to financial constraints and feels this may have contributed to increased swelling in her lower extremities. The patient also admits to decreased mobility in her home, however, does use a rolling walker with some assistance from her . The patient is also attempting to obtain a hospital bed and a lift for home use due to increased difficulty with ambulation and mobility issues. The patient denied any recent fall, change to bowel habits, nausea, vomiting, or diarrhea. The patient denied any increased shortness of breath, but had noticed some difficulty with deep inspiration due to increased girth of her abdomen over the last week. In the emergency room, the patient underwent general evaluation including chest imaging showing no acute pulmonary edema. The patient received IV Lasix 60 mg x1 dose in addition to Rocephin 1 g and was referred to the Hospitalist Service for admission. PAST MEDICAL HISTORY: 1. Diastolic congestive heart failure with ejection fraction of 55% in 01/2017. 2. Morbid obesity. 3. Chronic kidney disease, stage 3. 4. Hyperlipidemia. 5. Hypertension. 6. Physical deconditioning. 7. Hypothyroidism. 8. Chronic lymphedema. 9. Peripheral neuropathy. 10. Chronic dislocation of the right humerus. 11. Bilateral rotator cuff tears, chronic. 12. Question of diabetes mellitus, type 2. 13. Gastroesophageal reflux disease. PAST SURGICAL HISTORY: 1. Status post hysterectomy. 2. Status post gastric bypass. 3. Status post right foot surgery. 4. Status post tonsillectomy. 5. Status post right lower extremity stent placement. 6. Bilateral shoulder joint injections. CURRENT MEDICATIONS: 1. Coreg 6.25 mg p.o. b.i.d. 2. Zyrtec 10 mg p.o. daily. 3. Lasix 40 mg p.o. b.i.d. 4. Vitamin D3 of 5000 units p.o. q.7 days. 5. Vitamin B12 of 5000 mcg sublingually daily. 6. Neurontin 300 mg p.o. b.i.d. 7. Levothyroxine 25 mcg p.o. daily. 8. Meloxicam 15 mg p.o. daily. 9. Protonix 40 mg p.o. at bedtime. 10. Pramipexole 1 mg p.o. at bedtime. 11. Pravachol 40 mg p.o. at bedtime. ALLERGIES: TO ADHESIVE TAPE, DEMEROL, PENICILLIN, AND PROPOXYPHENE. FAMILY HISTORY: Positive for hypertension and coronary artery disease. SOCIAL HISTORY: The patient is , resides in [place], [place]. Retired. No current alcohol, tobacco, or illicit drug use. Ambulates with a rolling walker. REVIEW OF SYSTEMS: CONSTITUTIONAL: Negative for weight loss or gain, ability to conduct usual activities. SKIN: Negative for rash, itching. EYES: Negative for double vision, pain. ENT/MOUTH: Negative for nose bleeding, neck stiffness, pain, tenderness. CARDIOVASCULAR: Negative for palpitations, dyspnea on exertion, orthopnea. RESPIRATORY: Negative for shortness of breath, wheezing, cough, hemoptysis, fever or night sweats. GASTROINTESTINAL: Negative for poor appetite, abdominal pain, heartburn, nausea, vomiting, constipation, or diarrhea. GENITOURINARY: Negative for urgency, frequency, dysuria, nocturia. MUSCULOSKELETAL: Negative for pain, swelling. NEUROLOGIC/PSYCHIATRIC: Negative for anxiety, depression. ALLERGY/IMMUNOLOGIC: Negative for skin rash, bleeding tendency. Otherwise negative except as stated per HPI. PHYSICAL EXAMINATION: VITAL SIGNS: Currently, blood pressure 130/66, pulse 71, respiratory rate 20, temperature 96.3 degrees Fahrenheit, and O2 saturation 94% on room air. GENERAL APPEARANCE: This is a 68-year-old female, alert and oriented x3, pleasant, responsive, in no acute distress. HEENT: Pupils are equal, round, and reactive to light and accommodation. Extraocular muscles are intact. No scleral icterus. No conjunctival injection. Nares patent. OP is clear. Teeth in fair repair. NECK: Supple. No cervical adenopathy. No thyromegaly. No carotid bruits. No JVD appreciated. Cervical spine, full active and passive range of motion. No meningeal signs noted. CHEST: Diminished air flow in the bases bilaterally. CARDIOVASCULAR: S1 and S2 without noted murmur, rub, or gallop. ABDOMEN: Obese, soft, and nondistended. Bowel sounds are positive in all four quadrants. No palpable mass. Landmarks are difficult to palpate due to the patient's body habitus. EXTREMITIES: Pitting edema to the proximal shins bilaterally. Open bullae to lower extremities with clear fluid in the bullae noted. Patches of erythema noted on the lower 3rd of bilateral tibia regions. Pulses are palpable distally at the dorsalis pedis, posterior tibial, and popliteal arteries bilaterally. Capillary refill less than 2 seconds. NEUROLOGIC: Cranial nerves II through XII are grossly intact. No focal or lateralizing signs appreciated. PERTINENT LAB AND X-RAY FINDINGS: Sodium 139, potassium 4.4, chloride 102, CO2 of 27, BUN 44, creatinine 1.27, estimated GFR 42, glucose 161, and calcium 9.1. LFTs within normal limits. BNP 160, previously noted 239 on 02/02/2017. CBC showed a white blood cell count of 4.1, hemoglobin 11, hematocrit 33, and platelet count 180, with normal differential. Portable chest x-ray dated 02/28/2018 showed patchy density in the right suprahilar region, likely vascular structures. Anterior right shoulder dislocation, chronic. EKG dated 03/01/2018 by my interpretation shows sinus mechanism with heart rates in the 60s. Attenuated R-waves noted in the precordial leads. Left axis deviation. Left bundle-branch block pattern noted. ASSESSMENT AND PLAN: 1. Lower extremity edema. Suspect multifactorial in conjunction with chronic lymphedema and chronic kidney disease, stage 3. We will continue Lasix 40 mg IV b.i.d. Consult Wound Care Service for potential compression wraps to assist with edema. 2. Bilateral lower extremity cellulitis. Suspect acute on chronic condition. Continue vancomycin 1 g IV q.12 hours with additional Rocephin 2 g IV daily. Consult Wound Care Services for local care and management. 3. Chronic kidney disease, stage 3. Avoid nephrotoxic agents and limit contrast exposure. Serial creatinine monitoring. 4. Severe deconditioning. Consult PT for evaluation and functional assessment. Likely, the patient will benefit from Home Health Services including home PT. 5. Chronic diastolic congestive heart failure, stable currently. Appears compensated. Continue Lasix as noted above for lower extremity edema. 6. Diabetes mellitus, type 2, apparently diet managed at home. Insulin-sliding scale for reflexive coverage during the hospital stay. Check A1c level. ADA diet. 7. Prophylaxis. SCDs held due to lower extremity edema. Lovenox 30 mg subcutaneously daily. Protonix 40 mg p.o. daily. 8. Code status is full. Surrogate medical decision maker is the patient's spouse. Job ID: [id number]
[2018-03-01] MEDS: Vancomycin HCl 1 GM in Premix Bag 1 BAG IVPB SCH ×2 (12:59→23:42)
[2018-03-01] MEDS: Furosemide 40 MG/4 ML VIAL SLOW IVP SCH (14:35)
[2018-03-01] MEDS: cefTRIAXone\\ROCEPHIN 2 GM in Sodium Chloride 0.9% 100 ML IVPB SCH (14:35)
[2018-03-01] MEDS: Atorvastatin Calcium 10 MG TAB PO SCH (20:05)
[2018-03-01] MEDS: Carvedilol 6.25 MG TAB PO SCH (20:05)
[2018-03-01] MEDS: Pramipexole Di-HCl 1 MG TAB PO SCH (20:06)
[2018-03-01] MEDS: Gabapentin 300 MG CAP PO SCH (20:06)
[2018-03-01] MEDS: Acetaminophen 500 MG TAB PO PRN (20:09)
[2018-03-02] MEDS: Furosemide 40 MG/4 ML VIAL SLOW IVP SCH ×2 (06:10→14:09)
[2018-03-02 07:09] LABS: Hemoglobin A1c 6.4 % (4.0-6.0)
[2018-03-02 07:22] LABS: Hemoglobin 11.9 g/dL (12.0-16.0); Mean Corpuscular HGB CONC 32.4 g/dL (32.0-36.0); Mean Corpuscular Hemoglobin 28.9 pg (27.0-31.0); Mean Corpuscular Volume 89.1 fL (78.0-98.0); Mean Platelet Volume 8.2 fL (7.4-10.4); Platelet Count 187 thou/uL (130-400); RBC Distribution Width 13.5 % (11.5-14.5); Red Blood Cell (RBC) Count 4.12 mill/uL (4.20-5.40)
[2018-03-02 07:23] LABS: Anion Gap 15 mmol/L (10-20); BUN (Urea Nitrogen) 33 mg/dL (9.8-20.1); Calc. Creatinine Clearance 97 mL/min (70-130); Calcium 9.1 mg/dL (7.8-10.44); Carbon Dioxide 32 mmol/L (23-31); Chloride 97 mmol/L (98-107); Estimated GFR-MDRD 51; Glucose 94 mg/dL (80-115); Potassium 4.6 mmol/L (3.5-5.1); Sodium 139 mmol/L (136-145)
[2018-03-02] MEDS: Meloxicam 15 MG TAB PO SCH (07:49)
[2018-03-02] MEDS: Cyanocobalamin (Vitamin B-12) 1,000 MCG TAB PO SCH (07:49)
[2018-03-02] MEDS: Carvedilol 6.25 MG TAB PO SCH ×2 (07:49→21:42)
[2018-03-02] MEDS: Levothyroxine Sodium 25 MCG TAB PO SCH (07:49)
[2018-03-02] MEDS: Gabapentin 300 MG CAP PO SCH ×2 (07:50→21:42)
[2018-03-02] MEDS: Enoxaparin Sodium 30 MG/0.3 ML SYRINGE SC SCH (07:50)
[2018-03-02 08:08] LABS: Eosinophils 3 % (0-10); Lymphocytes 17 % (21-51); MDiff Complete? YES; Monocytes 7 % (0-10); Neutrophil 70 % (42-75); PLT Morphology Comment Appears Adequate; Reactive Lymphocytes 3 % (0-10); White Blood Cell (WBC) Count 3.7 thou/uL (4.8-10.8)
[2018-03-02] MEDS: Vancomycin HCl 1 GM in Premix Bag 1 BAG IVPB SCH (11:24)
--- NOTE | 2018-03-02 13:45 | PDOC.PN ---
- Subjective Encounter Start Date: 03/02/18 Encounter Start Time: 13:30 Subjective: f/u for LE edema and cellulitis. Overall feeling better and less edema. -: WCT wrapped the legs and pt mobilized with PT. - Objective Resuscitation Status - Order Detail: 03/01/18 09:38 Resuscitation Status Routine Resuscitation Status: FULL: Full Resuscitation MAR Reviewed: Yes Vital Signs & Weight: Vital Signs (12 hours) Temp Pulse Resp BP BP Pulse Ox 03/02/18 11:40 97.7 F 56 L 20 130/70 95 03/02/18 08:00 95 03/02/18 07:49 127/61 03/02/18 07:32 97.4 F L 54 L 18 127/61 95 03/02/18 04:40 97.9 F 59 L 18 118/72 95 Weight Weight 276 lb 11.2 oz I&O: 03/01/18 03/02/18 03/03/18 06:59 06:59 06:59 Intake Total 725 1540 Output Total 575 700 Balance 150 840 Result Diagrams: 03/02/18 06:38 03/02/18 06:38 Additional Labs: Accuchecks 03/02/18 03/02/18 03/01/18 11:43 04:58 20:01 POC Glucose 87 100 156 H 03/01/18 16:17 POC Glucose 87 Microbiology 02/02/17 07:15 Venous blood - Left Hand Blood Culture - Preliminary NO GROWTH AT 48 HOURS 02/02/17 06:55 Venous blood - Left Hand Blood Culture - Preliminary NO GROWTH AT 48 HOURS Laboratory Tests 02/04/17 02/05/17 02/28/18 03:32 05:51 23:58 Hgb 9.6 L 11.0 L 10.8 L Creatinine Hemoglobin A1c 02/28/18 03/02/18 23:58 06:38 Hgb Creatinine 1.27 H Hemoglobin A1c 6.4 H Phys Exam - Physical Examination Constitutional: NAD HEENT: PERRLA, sclera anicteric, oral pharynx no lesions Neck: no nodes, no JVD, supple, full ROM Respiratory: no wheezing, no rales, no rhonchi, clear to auscultation bilateral S1, S2 Cardiovascular: RRR, no significant murmur, no rub, gallop Gastrointestinal: soft, non-tender, no distention, positive bowel sounds decreased edema bilat LE's, wound dressings in place Musculoskeletal: pulses present, edema present Neurological: normal sensation, moves all 4 limbs Psychiatric: A&O x 3 Skin: normal turgor, cap refill <2 seconds Dx/Plan (1) Bilateral lower extremity edema Code(s): R60.0 - LOCALIZED EDEMA Status: Acute Comment: Improved, continue Lasix 40mg IV BID, elevate LE's while in bed or seated (2) Cellulitis of both lower extremities Code(s): L03.115 - CELLULITIS OF RIGHT LOWER LIMB; L03.116 - CELLULITIS OF LEFT LOWER LIMB Status: Acute Comment: Likely due to edema, continue Vanc/ Rocephin, local WCT and compression dressings (3) CKD (chronic kidney disease) stage 3, GFR 30-59 ml/min Status: Chronic Comment: Stable, avoid nephrotoxic meds and contrast media (4) HTN (hypertension) Code(s): I10 - ESSENTIAL (PRIMARY) HYPERTENSION Status: Chronic Qualifiers: Hypertension type: essential hypertension Qualified Code(s): I10 - Essential (primary) hypertension Comment: Stable, resume home BP regimen and monitor clinical response (5) Morbid obesity Code(s): E66.01 - MORBID (SEVERE) OBESITY DUE TO EXCESS CALORIES Status: Chronic Comment: Weight loss strategy (6) Physical deconditioning Code(s): R53.81 - OTHER MALAISE Status: Chronic Comment: PT/OT with HH at discharge - Plan continue antibiotics, PT/OT, social media campaign manager, out of bed/ambulate Stable currently -: Continue Lasix 40mg IV BID -: WCT for local care and dressing changes -: Continue Rocephin and Vancomycin -: AM: BMP * .
[2018-03-02] MEDS: cefTRIAXone\\ROCEPHIN 2 GM in Sodium Chloride 0.9% 100 ML IVPB SCH (14:07)
[2018-03-02] MEDS: Pramipexole Di-HCl 1 MG TAB PO SCH (21:42)
[2018-03-02] MEDS: Atorvastatin Calcium 10 MG TAB PO SCH (21:42)
[2018-03-02] MEDS ORDERED: Nystatin Ointment 15 GM TUBE TOP PRN (23:07)
[2018-03-03] MEDS: Vancomycin HCl 1 GM in Premix Bag 1 BAG IVPB SCH
[2018-03-03 00:05] LABS: Vancomycin, Trough 23.4 ug/mL
[2018-03-03] MEDS: Furosemide 40 MG/4 ML VIAL SLOW IVP SCH ×2 (06:44→17:14)
[2018-03-03] MEDS: Acetaminophen 500 MG TAB PO PRN (09:31)
[2018-03-03] MEDS: Meloxicam 15 MG TAB PO SCH (09:31)
[2018-03-03] MEDS: Carvedilol 6.25 MG TAB PO SCH ×2 (09:32→21:16)
[2018-03-03] MEDS: Levothyroxine Sodium 25 MCG TAB PO SCH (09:32)
[2018-03-03] MEDS: Gabapentin 300 MG CAP PO SCH ×2 (09:32→21:16)
[2018-03-03] MEDS: Cyanocobalamin (Vitamin B-12) 1,000 MCG TAB PO SCH (09:32)
[2018-03-03] MEDS: Enoxaparin Sodium 30 MG/0.3 ML SYRINGE SC SCH (09:33)
--- NOTE | 2018-03-03 10:11 | PDOC.PN ---
- Subjective Encounter Start Date: 03/03/18 Encounter Start Time: 10:05 Subjective: f/u for LE edema and LE cellulitis. Overall feeling better. Less swelling -: and moving better. - Objective Resuscitation Status - Order Detail: 03/01/18 09:38 Resuscitation Status Routine Resuscitation Status: FULL: Full Resuscitation MAR Reviewed: Yes Vital Signs & Weight: Vital Signs (12 hours) Temp Pulse Resp BP BP Pulse Ox 03/03/18 09:32 119/71 03/03/18 08:00 98.1 F 66 18 126/59 L 95 03/03/18 04:00 97.7 F 65 20 124/72 96 03/03/18 00:00 97.5 F L 69 20 124/69 92 L Weight Admit Weight 276 lb 11.2 oz Weight 276 lb 11.2 oz I&O: 03/02/18 03/03/18 03/04/18 06:59 06:59 06:59 Intake Total 1540 Output Total 700 Balance 840 Result Diagrams: 03/02/18 06:38 03/02/18 06:38 Additional Labs: Accuchecks 03/03/18 03/02/18 03/02/18 04:51 19:50 16:38 POC Glucose 104 294 H 121 H 03/02/18 11:43 POC Glucose 87 Microbiology 02/02/17 07:15 Venous blood - Left Hand Blood Culture - Preliminary NO GROWTH AT 48 HOURS 02/02/17 06:55 Venous blood - Left Hand Blood Culture - Preliminary NO GROWTH AT 48 HOURS Laboratory Tests 02/04/17 02/05/17 02/28/18 03:32 05:51 23:58 Hgb 9.6 L 11.0 L 10.8 L Creatinine Hemoglobin A1c 02/28/18 03/02/18 23:58 06:38 Hgb Creatinine 1.27 H Hemoglobin A1c 6.4 H Phys Exam - Physical Examination Constitutional: NAD HEENT: PERRLA, sclera anicteric, oral pharynx no lesions Neck: no nodes, no JVD, supple, full ROM Respiratory: no wheezing, no rales, no rhonchi, clear to auscultation bilateral S1, S2 Cardiovascular: RRR, no significant murmur, no rub, gallop Gastrointestinal: soft, non-tender, no distention, positive bowel sounds decreased edema bilat, kerlex dressing in place bilat LE's Musculoskeletal: pulses present Neurological: normal sensation, moves all 4 limbs Psychiatric: A&O x 3 Skin: normal turgor, cap refill <2 seconds Dx/Plan (1) Bilateral lower extremity edema Code(s): R60.0 - LOCALIZED EDEMA Status: Acute Comment: Improved, continue Lasix 40mg IV daily, elevate LE's while in bed or seated (2) Cellulitis of both lower extremities Code(s): L03.115 - CELLULITIS OF RIGHT LOWER LIMB; L03.116 - CELLULITIS OF LEFT LOWER LIMB Status: Acute Comment: Likely due to edema, continue Vanc/ Rocephin, local WCT and compression dressings (3) CKD (chronic kidney disease) stage 3, GFR 30-59 ml/min Status: Chronic Comment: Stable, avoid nephrotoxic meds and contrast media (4) HTN (hypertension) Code(s): I10 - ESSENTIAL (PRIMARY) HYPERTENSION Status: Chronic Qualifiers: Hypertension type: essential hypertension Qualified Code(s): I10 - Essential (primary) hypertension Comment: Stable, resume home BP regimen and monitor clinical response (5) Morbid obesity Code(s): E66.01 - MORBID (SEVERE) OBESITY DUE TO EXCESS CALORIES Status: Chronic Comment: Weight loss strategy (6) Physical deconditioning Code(s): R53.81 - OTHER MALAISE Status: Chronic Comment: PT/OT with HH at discharge - Plan plan discussed w/ family, continue antibiotics, PT/OT, social services director, out of bed/ambulate Stable currently -: Continue IV Lasix another 24h then d/c -: OOB/ambulate -: Continue Vancomycin/Rocephin another 24h -: AM lab: BMP * Likely home in 24h
[2018-03-03 10:48] LABS: Anion Gap 15 mmol/L (10-20); BUN (Urea Nitrogen) 32 mg/dL (9.8-20.1); Calc. Creatinine Clearance 88 mL/min (70-130); Calcium 9.1 mg/dL (7.8-10.44); Carbon Dioxide 30 mmol/L (23-31); Chloride 98 mmol/L (98-107); Estimated GFR-MDRD 45; Glucose 156 mg/dL (80-115); Potassium 3.5 mmol/L (3.5-5.1); Sodium 139 mmol/L (136-145)
[2018-03-03] MEDS: Vancomycin HCl 1.75 GM in Sodium Chloride 0.9% 500 ML IVPB SCH (12:36)
[2018-03-03] MEDS ORDERED: cefTRIAXone\\ROCEPHIN 2 GM in Sodium Chloride 0.9% 100 ML IVPB SCH (16:00)
[2018-03-03] MEDS: Atorvastatin Calcium 10 MG TAB PO SCH (21:16)
[2018-03-03] MEDS: Pramipexole Di-HCl 1 MG TAB PO SCH (23:09)
[2018-03-04] MEDS: Acetaminophen 500 MG TAB PO PRN (04:27)
[2018-03-04] MEDS: Furosemide 40 MG/4 ML VIAL SLOW IVP SCH ×2 (06:47→15:07)
[2018-03-04] MEDS: Meloxicam 15 MG TAB PO SCH (08:37)
[2018-03-04] MEDS: Enoxaparin Sodium 30 MG/0.3 ML SYRINGE SC SCH (08:38)
[2018-03-04] MEDS: Cyanocobalamin (Vitamin B-12) 1,000 MCG TAB PO SCH (08:38)
[2018-03-04] MEDS: Gabapentin 300 MG CAP PO SCH (08:38)
[2018-03-04] MEDS: Carvedilol 6.25 MG TAB PO SCH (08:38)
[2018-03-04] MEDS: Levothyroxine Sodium 25 MCG TAB PO SCH (08:38)
[2018-03-04 08:56] LABS: Chloride 100 mmol/L (98-107); Potassium 3.9 mmol/L (3.5-5.1); Sodium 136 mmol/L (136-145)
[2018-03-04 08:57] LABS: Calcium 9.2 mg/dL (7.8-10.44); Glucose 125 mg/dL (80-115)
[2018-03-04 08:59] LABS: Anion Gap 14 mmol/L (10-20); Carbon Dioxide 26 mmol/L (23-31)
[2018-03-04 09:01] LABS: BUN (Urea Nitrogen) 26 mg/dL (9.8-20.1); Calc. Creatinine Clearance 103 mL/min (70-130); Estimated GFR-MDRD 54
[2018-03-04] MEDS: Vancomycin HCl 1.75 GM in Sodium Chloride 0.9% 500 ML IVPB SCH (11:32)
--- NOTE | 2018-03-04 12:44 | DIS ---
DATE OF ADMISSION: 03/01/2018 DATE OF DISCHARGE: 03/04/2018 DISCHARGE DIAGNOSES: 1. Bilateral lower extremity edema, chronic, improved. 2. Cellulitis of bilateral lower extremities. 3. Chronic kidney disease, stage 3. 4. Hypertension, stable. 5. Morbid obesity. 6. Physical deconditioning. 7. Diabetes mellitus, type 2, diet managed. CONSULTATIONS: None. PERTINENT LABORATORY AND X-RAY FINDINGS: Creatinine ranged between 1.01 to 1.27. Estimated GFR ranged between 42 to 54. Hemoglobin A1c 6.4. BNP 160. CBC showed hemoglobin ranged between 10.8 to 11.9. Portable chest x-ray dated 02/28/2018, showed this chronic anterior right shoulder dislocation. Chronic changes in bilateral lung gracia noted. HOSPITAL COURSE: The patient was initially admitted to the medical floor after presenting with increasing lower extremity edema with associated cellulitis. The patient was placed on IV Lasix throughout the hospital course with excellent improvement and overall lower extremity edema. The patient received Wound Care Services for lower extremity open blistering as well as control of edema and dressing changes through the remainder of the hospital course. The patient continued on IV vancomycin and Rocephin for suspected lower extremity cellulitis with overall improvement in edema and erythema by the time of discharge. Due to the patient's overall deconditioned status, the patient was evaluated for home health services including Physical And Occupational Therapy. The patient was deemed an appropriate candidate and will discharge home with home health services with [facility]. I have examined the patient at the time of discharge and discussed followup instructions. The patient overall clinically stable and ready for discharge on 03/04/2018. DISCHARGE MEDICATIONS: 1. Coreg 6.25 mg p.o. b.i.d. 2. Zyrtec 10 mg p.o. daily. 3. Vitamin D3 of 5000 units p.o. daily. 4. Vitamin B12 of 5000 mcg sublingually daily. 5. Neurontin 300 mg p.o. b.i.d. 6. Levothyroxine 25 mcg p.o. daily. 7. Meloxicam 15 mg p.o. daily. 8. Protonix 40 mg p.o. at bedtime. 9. Pramipexole 1 mg p.o. at bedtime. 10. Keflex 500 mg p.o. b.i.d. x7 days. 11. Lasix 40 mg p.o. daily. 12. Pravachol 40 mg p.o. at bedtime. FOLLOWUP: The patient to follow up with her primary care provider in the next 7 to 10 days. The patient will establish with a new primary care provider due to insurance changes. CONDITION ON DISCHARGE: Fair. ACTIVITY: Ad-heather. Rolling walker with standby assistance. SPECIAL INSTRUCTIONS: Recommend ongoing wound care services for lower extremity dressing changes 3 times per week. Recommend ongoing physical/occupational therapy through home health services at discharge. DIET: ADA and heart healthy. CODE STATUS: Full. DISPOSITION: Home with [facility] on 03/04/2018. TIME SPENT: Total time preparing and coordinating discharge, 36 minutes. Job ID: [id number]
[2018-03-04 15:05] VITALS: BP 125/76; TEMP 97.9
== END 2018-03-04 15:14 | disposition home health service (06) | DRG 603 ==
LOC: ERS 23:35 → 2SW 03-01 00:42 → OBSVTOIN 03-01 00:42 → T4-B 03-01 12:25
PROVIDERS: ADMIT Internal Medicine; ATTEND Internal Medicine
DX: L03.116 Cellulitis of left lower limb (principal); I50.32 Chronic diastolic (congestive) heart failure; Z68.43 Body mass index [BMI] 50.0-59.9, adult; I13.0 Hypertensive heart and chronic kidney disease with heart failure and stage 1 through stage 4 chronic kidney disease, or unspecified chronic kidney disease; L03.115 Cellulitis of right lower limb; E66.01 Morbid (severe) obesity due to excess calories; N18.3 Chronic kidney disease, stage 3 (moderate); E78.5 Hyperlipidemia, unspecified; R60.0 Localized edema; E03.9 Hypothyroidism, unspecified; E11.42 Type 2 diabetes mellitus with diabetic polyneuropathy; E11.22 Type 2 diabetes mellitus with diabetic chronic kidney disease; K21.9 Gastro-esophageal reflux disease without esophagitis; Z88.0 Allergy status to penicillin; Z82.49 Family history of ischemic heart disease and other diseases of the circulatory system
CPT/HCPCS: 36415; 36416; 71045; 80048; 80053; 80202; 83036; 83880; 84484; 85007; 85025; 85027; 93005; 96365; 96375; G8978-GP-CK; G8979-GP-CI; J0696; J1650; J1940; J3370; J7050; Q0162

== ENCOUNTER 2018-11-10 07:05 | Inpatient (IN) | payer MEDICARE ==
[2018-11-10 07:28] LABS: #Eosinphils 0.1 thou/uL (0.0-0.7); #Monocytes 0.4 thou/uL (0.11-0.59); #Neutrophils 3.2 thou/uL (1.40-6.50); %Basophils 0.7 % (0.0-1.0); %Eosinophils 2.2 % (0.0-10.0); %Lymphocytes 21.1 % (21.0-51.0); %Monocytes 8.1 % (0.0-10.0); Hemoglobin 10.9 g/dL (12.0-16.0); Mean Corpuscular HGB CONC 31.2 g/dL (32.0-36.0); Mean Corpuscular Hemoglobin 27.4 pg (27.0-31.0); Mean Corpuscular Volume 87.9 fL (78.0-98.0); Mean Platelet Volume 7.8 fL (7.4-10.4); Platelet Count 221 thou/uL (130-400); RBC Distribution Width 14.3 % (11.5-14.5); Red Blood Cell (RBC) Count 3.99 mill/uL (4.20-5.40); White Blood Cell (WBC) Count 4.7 thou/uL (4.8-10.8)
[2018-11-10 07:37] LABS: PTT 31.6 SEC (22.9-36.1); Prothrombin Time 12.9 SEC (12.0-14.7)
--- NOTE | 2018-11-10 07:39 | CT ---
CT Brain WO Con History: Dysphasia. Comparison: CT brain 2017 Findings: No acute hemorrhage or infarct. No midline shift or mass effect. Ventricular size and extra -axial CSF spaces are normal. The calvarium is intact. Paranasal sinuses and mastoids are clear. Impression: No acute intracranial abnormality.
--- NOTE | 2018-11-10 07:41 | RAD ---
XR Chest 1 View Portable History: Slurred speech. Comparison: Radiograph 2018 Findings: Heart size mildly enlarged. Scarring throughout the lungs. No pneumothorax. There is anterior dislocation of both glenohumeral joints. Aortic contour is similar. Impression: 1. Unchanged examination the chest with cardiomegaly and peripheral interstitial scarring. No acute i ntrathoracic abnormality. 2. Bilateral anterior subcoracoid shoulder dislocations.
[2018-11-10 07:50] LABS: ALT (SGPT) 13 U/L (8-55); AST (SGOT) 20 U/L (5-34); Albumin 3.9 g/dL (3.4-4.8); Alkaline Phosphatase 109 U/L (40-150); Anion Gap 13 mmol/L (10-20); BUN (Urea Nitrogen) 34 mg/dL (9.8-20.1); Bilirubin, Total 0.4 mg/dL (0.2-1.2); Calc. Creatinine Clearance 0 mL/min (70-130); Calcium 8.7 mg/dL (7.8-10.44); Carbon Dioxide 29 mmol/L (23-31); Chloride 101 mmol/L (98-107); Estimated GFR-MDRD 51; Globulin 2.8 g/dL (2.4-3.5); Glucose 121 mg/dL (80-115); Potassium 3.9 mmol/L (3.5-5.1); Protein, Total 6.7 g/dL (6.0-8.3); Sodium 139 mmol/L (136-145)
[2018-11-10 08:26] LABS: Bilirubin Negative (Negative); Blood, Urine Negative (Negative); Clarity Clear (Clear); Glucose, Urine (Dipstick) Normal (Negative); Leukocyte Negative Leu/uL (Negative); Nitrite Negative (Negative); Protein, Urine (Dipstick) 10 mg/dL (Neg-Trace)
[2018-11-10] MEDS ORDERED: hydrALAZINE 20 MG/ML VIAL SLOW IVP PRN (09:48)
[2018-11-10] MEDS ORDERED: Dextrose 5% in Water 1,000 ML IV PRN (09:50)
[2018-11-10] MEDS ORDERED: Dextrose 50% Abboject 50 ML SYRINGE SLOW IVP PRN (09:50)
[2018-11-10] MEDS ORDERED: Insulin Regular 300 UNITS/3 ML VIAL SC PRN (09:50)
[2018-11-10] MEDS ORDERED: Calcium Carbonate 500 MG ChewTAB PO PRN (09:51)
[2018-11-10] MEDS ORDERED: Ondansetron ODT 4 MG TAB PO PRN (09:51)
[2018-11-10] MEDS ORDERED: Acetaminophen 325 MG TAB PO PRN (09:51)
[2018-11-10] MEDS ORDERED: Ondansetron PF 4 MG/2 ML Vial IVP PRN (09:51)
[2018-11-10] MEDS ORDERED: Bisacodyl 10 MG SUPP PR PRN (09:51)
[2018-11-10] MEDS ORDERED: Aspirin 325 MG TAB ONE (10:07)
[2018-11-10 10:26] LABS: Phosphorus 3.8 mg/dL (2.3-4.7)
--- NOTE | 2018-11-10 12:46 | MRI ---
EXAM: MRI Brain WO Con PROVIDED CLINICAL HISTORY: Stroke. Left leg weakness. COMPARISON: CT head on 11/10/2018 FINDINGS: There is motion artifact on all pulse sequences which does degrade image quality, but this examinatio n is diagnostic. A few scattered punctate areas of increased FLAIR and T2-weighted signal intensity are seen in the pe riventricular and subcortical white matter which are nonspecific but likely reflective of mild chronic small vessel ischemic changes. There is no evidence of an acute infarction. The septum pelluc idum and third ventricle are in the midline. Mild cerebral volume loss is present, not unexpected for the patient's age. Ventricular system is normal in size, shape, and position for the degree of dunlap lcal atrophy. The paranasal sinuses, orbits, and skull base demonstrate grossly normal nonenhanced CT appearance. G rossly appropriate flow voids are demonstrated at the base of the brain. IMPRESSION: 1. Limited examination secondary to motion, but no acute intracranial abnormality is demonstrated. 2. Mild chronic small vessel ischemic changes and cerebral volume loss.
[2018-11-10 13:48] VITALS: BMI 52.4
[2018-11-10] MEDS: traMADol HCl 50 MG TAB PO PRN ×2 (13:58→20:33)
[2018-11-10] MEDS: Sodium Chloride 0.9% 1,000 ML IV SCH (14:11)
[2018-11-10] MEDS ORDERED: traMADol HCl 50 MG TAB PO PRN (16:48)
--- NOTE | 2018-11-10 17:18 | HP ---
PRIMARY CARE PHYSICIAN: Dr. Heather Cuellar. REASON FOR ADMISSION: Multiple vague complaints, rule out CVA. HISTORY OF PRESENT ILLNESS: A 68-year-old female, who presented to emergency room with complaint of multiple complaints. She was having slurred speech. She was having facial heaviness. She was having motor weakness. She was also complaining of tingling and numbness sensation and generalized weakness. The patient was also having nasal congestion. She was feeling more weak than usual and that is why she was brought to emergency room. Normally, the patient is getting around with a walker, but today she was not able to ambulate well and that is why there was concern of underlying CVA and the patient was brought to ER. In the emergency room, CT brain was negative. Subsequently, MRI brain also came back negative. When I saw this patient in the evening time, at that time she was not having any complaints. She was requesting rehabilitation placement for her physical deconditioning. REVIEW OF SYSTEMS: CONSTITUTIONAL: Negative for weight loss or gain, ability to conduct usual activities. SKIN: Negative for rash, itching. EYES: Negative for double vision, pain. ENT/MOUTH: Negative for nose bleeding, neck stiffness, pain, tenderness. CARDIOVASCULAR: Negative for palpitations, dyspnea on exertion, orthopnea. RESPIRATORY: Negative for shortness of breath, wheezing, cough, hemoptysis, fever or night sweats. GASTROINTESTINAL: Negative for poor appetite, abdominal pain, heartburn, nausea, vomiting, constipation, or diarrhea. GENITOURINARY: Negative for urgency, frequency, dysuria, nocturia. MUSCULOSKELETAL: Negative for pain, swelling. NEUROLOGIC/PSYCHIATRIC: Negative for anxiety, depression. ALLERGY/IMMUNOLOGIC: Negative for skin rash, bleeding tendency. Please see my HPI for pertinent positives and negatives. All other review of systems reviewed and negative except as mentioned in HPI. PAST MEDICAL HISTORY: Chronic diastolic heart failure with EF 55%, morbid obesity, chronic kidney disease stage 3, hypertension, dyslipidemia, chronic physical deconditioning, hypothyroidism, chronic lymphedema, peripheral neuropathy, chronic dislocation of right humerus, bilateral rotator cuff tear, chronic gastroesophageal reflux disease. PAST SURGICAL HISTORY: Gastric bypass surgery, right foot surgery, tonsillectomy, right lower extremity stent placement, bilateral shoulder joint injection, hysterectomy. PAST PSYCHIATRIC HISTORY: Reviewed and negative. CURRENT HOME MEDICATION: 1. Tramadol 50 mg q.6 hourly p.r.n. 2. Vitamin D3 of 5,000 units p.o. daily. 3. Baclofen 10 mg p.o. at bedtime. 4. Coreg 6.25 mg b.i.d. 5. Cetirizine 10 mg daily. 6. Vitamin B12 of 5,000 mcg sublingual daily. 7. Gabapentin 300 mg p.o. b.i.d. 8. Synthroid 75 mcg daily. 9. Protonix 40 mg p.o. at bedtime. 10. Pramipexole 1 mg p.o. at bedtime. 11. Lasix 40 mg daily. 12. Pravastatin 40 mg p.o. at bedtime. ALLERGIES: ADHESIVE TAPE, DEMEROL, PENICILLIN, AND PROPOXYPHENE. FAMILY HISTORY: Positive for hypertension and coronary artery disease. SOCIAL HISTORY: The patient is , lives in [place], [place]. She is retired. She ambulates with rolling walker. No history of tobacco, alcohol, or illicit drug abuse. PHYSICAL EXAMINATION: VITAL SIGNS: On arrival, blood pressure 153/81, pulse 71, respiratory rate 18, temperature 98.0, saturation 99% on room air. Weight of 119.2 kg. GENERAL: The patient is currently alert, awake, in no obvious acute distress. HEENT: Head; normocephalic, atraumatic. Eyes; pupils round, reactive to light. Extraocular muscles are intact. ENT; oropharynx within normal limits. Moist mucous membranes. No oral lesion. No pharyngeal erythema. No exudate. NECK: Supple. No JVD. No thyromegaly. No carotid bruit. No jugular venous distention. LUNGS: Clear to auscultation without any rhonchi or rales. CARDIAC: S1, S2 regular. No murmur. No gallop. No rub. ABDOMEN: Soft. Bowel sounds present. Nontender. Nondistended. No organomegaly. No mass. No suprapubic tenderness. BACK: Unremarkable. No CVA tenderness. EXTREMITIES: Upper extremities, passive movement of all joints are normal. Lower extremities, no edema. Good distal pulsation. SKIN: No skin rash. HEMATOLOGICAL SYSTEM: No lymphadenopathy. NEUROLOGIC: Nonfocal examination. SIGNIFICANT LABORATORY DATA: EKG showing sinus bradycardia, left bundle branch block pattern, nonspecific ST-T changes. CT brain based on my review no acute intracranial process. MRI brain based on my review no acute intracranial process. Chest x-ray, unremarkable. CBC; WBC 4.7, hemoglobin 10.9, platelet of 221. INR 1.0. BMP; sodium 139, potassium 3.9, chloride 101, carbon dioxide 29, BUN 34, creatinine 1.07, glucose 121, calcium 8.7, phosphorus 3.8, magnesium 2.0. LFT; AST 20, ALT 13, alkaline phosphatase 109, albumin 3.9. Troponin less than 0.010. CK 232. TSH 1.65. Urinalysis, unremarkable. ASSESSMENT AND PLAN: 1. Ruled out cerebrovascular accident. The patient does not have any neurological deficit at this point. She has multiple vague complaints and based on investigation, we have completely excluded any new CVA or TIA. 2. Generalized weakness. The patient will need PT and OT evaluation and the patient will need rehab screen and possibly rehab placement. 3. Hypertension. We will continue Coreg 6.25 mg b.i.d. 4. Chronic diastolic heart failure stage C, currently euvolemic. Continue Lasix 40 mg daily along with Coreg 6.25 mg b.i.d. 5. Hypothyroidism. Continue Synthroid 75 mcg p.o. daily. 6. Gastroesophageal reflux disease. Continue Protonix 40 mg p.o. at bedtime. 7. Dyslipidemia. Continue pravastatin 40 mg p.o. at bedtime. 8. Peripheral neuropathy. Continue gabapentin 300 mg p.o. b.i.d. 9. DVT prophylaxis. Lovenox 40 mg subcu daily. 10. Gastrointestinal prophylaxis, Protonix 40 mg p.o. daily. CODE STATUS: The patient is full code. The patient's is surrogate decision maker. DISPOSITION PLAN: Based on clinical course, most likely the patient will be discharged to rehab when available. Plan of care discussed with the patient in detail. Job ID: [id number]
[2018-11-10] MEDS: Gabapentin 300 MG CAP PO SCH (20:33)
[2018-11-10] MEDS: Pravastatin Sodium 40 MG TAB PO SCH (20:33)
[2018-11-10] MEDS: Baclofen 10 MG TAB PO SCH (20:34)
[2018-11-10] MEDS: Atorvastatin Calcium 40 MG TAB PO SCH (20:34)
[2018-11-10] MEDS: Carvedilol 6.25 MG TAB PO SCH (20:34)
[2018-11-10] MEDS: Pramipexole Di-HCl 1 MG TAB PO SCH (21:22)
[2018-11-11] MEDS: traMADol HCl 50 MG TAB PO PRN ×2 (02:28→21:03)
[2018-11-11] MEDS: Nitroglycerin 0.4 MG TAB (25 Tab Bottle) SL PRN ×2 (03:00→22:13)
--- NOTE | 2018-11-11 03:04 | PDOC.EVN ---
Event Note - Event Note Event Note: Called to floor to evaluate patient for episode of chest pressure. EKG stable, showing LBBB and sinus arrhythmia; SL nitro relieved discomfort. Will trend troponin. Patient feeling much improved at this time.
[2018-11-11 03:36] LABS: Troponin I Less than 0.010 ng/mL (< 0.028)
[2018-11-11 04:00] LABS: Cardiac Risk 2.1 (Less than 4.5)
[2018-11-11] MEDS: Levothyroxine Sodium 75 MCG TAB PO SCH (05:58)
[2018-11-11 06:45] LABS: Troponin I Less than 0.010 ng/mL (< 0.028)
[2018-11-11] MEDS: Sodium Chloride 0.9% 1,000 ML IV SCH (08:21)
[2018-11-11] MEDS: Carvedilol 6.25 MG TAB PO SCH ×2 (08:22→21:18)
[2018-11-11] MEDS: Gabapentin 300 MG CAP PO SCH ×2 (08:23→21:03)
[2018-11-11] MEDS: Cyanocobalamin (Vitamin B-12) 1,000 MCG TAB PO SCH (08:23)
[2018-11-11] MEDS: Furosemide 40 MG TAB PO SCH (08:23)
[2018-11-11] MEDS: Aspirin 325 mg Enteric Coated Tablet PO SCH (08:24)
[2018-11-11] MEDS: Enoxaparin Sodium 40 MG/0.4 ML SYRINGE SC SCH (08:24)
--- NOTE | 2018-11-11 16:46 | ULT ---
BILATERAL CAROTID DUPLEX ULTRASOUND: HISTORY: TIA TECHNIQUE: Grayscale, color-flow and spectral Doppler ultrasound imaging of the extracranial carotid artery syst ems was performed bilaterally. FINDINGS: There is prominent calcified atherosclerotic plaque seen in region of the carotid bulbs and proximal internal carotid arteries bilaterally. There is no hemodynamically significant stenosis in the bilateral internal carotid arteries according to the peak systolic velocities and the ICA/CCA ratios. The peak systolic velocity in the right ICA measures 58.2 cm/s. The peak systolic velocity in the left ICA measures 106.3 cm/s. The right I CA/CCA ratio is 0.66, and the left ICA/CCA ratio is 1.31. Vertebral arteries: Antegrade flow is demonstrated in the vertebral arteries bilaterally. IMPRESSION: Prominent calcified atherosclerotic plaque involving the bilateral carotid bulbs and proximal interna l carotid arteries, but there is no hemodynamically significant stenosis in the bilateral internal carotid arteries based on velocity measurements.
--- NOTE | 2018-11-11 18:08 | EKG ---
Test Reason : Blood Pressure : / mmHG Vent. Rate : 048 BPM Atrial Rate : 048 BPM P-R Int : 174 ms QRS Dur : 178 ms QT Int : 564 ms P-R-T Axes : 058 -03 088 degrees QTc Int : 503 ms Sinus bradycardia with sinus arrhythmia Left bundle branch block Abnormal ECG When compared with ECG of 10-NOV-2018 07:51, (Unconfirmed) No significant change was found Confirmed by DR. Divya PALACIOS (3) on 11/11/2018 6:08:26 PM Referred By: ALEXY Confirmed By:DR. Divya PALACIOS
--- NOTE | 2018-11-11 18:23 | EKG ---
Test Reason : CP Blood Pressure : / mmHG Vent. Rate : 045 BPM Atrial Rate : 045 BPM P-R Int : 172 ms QRS Dur : 180 ms QT Int : 534 ms P-R-T Axes : 012 -08 069 degrees QTc Int : 461 ms Sinus bradycardia Left bundle branch block Abnormal ECG When compared with ECG of 11-NOV-2018 02:56, (Unconfirmed) No significant change was found Confirmed by DR. Divya PALACIOS (3) on 11/11/2018 6:23:18 PM Referred By: MARIA DE JESUS Confirmed By:DR. Divya PALACIOS
[2018-11-11] MEDS: Baclofen 10 MG TAB PO SCH (21:03)
[2018-11-11] MEDS: Pravastatin Sodium 40 MG TAB PO SCH (21:04)
[2018-11-11] MEDS: Atorvastatin Calcium 40 MG TAB PO SCH (21:04)
[2018-11-11] MEDS: Pramipexole Di-HCl 1 MG TAB PO SCH (21:04)
--- NOTE | 2018-11-11 21:39 | CON ---
DATE OF CONSULTATION: REQUESTING PHYSICIAN: Dr. Naqvi. REASON FOR REQUEST: Bradycardia. HISTORY OF PRESENT ILLNESS: Ms. Manuel is a 68-year-old female with a history of diabetes, sleep apnea, restless legs, hypertension, hyperlipidemia, neuropathy, stasis ulcers. She was admitted to the hospital. She had a slow and slurred speech, difficulty walking as well as inability to express her thoughts. She has not received any stroke therapy according to her. She did receive nitroglycerin and reports that with this, she had significant improvement in her symptomatology. PAST MEDICAL HISTORY: Significant for diabetes, sleep apnea, restless legs, hypertension, hyperlipidemia, neuropathy, stasis ulcers, morbid obesity. FAMILY HISTORY: No early coronary artery disease or sudden cardiac . SOCIAL HISTORY: She does not drink too excess, smoke, or use illicit medications. ALLERGIES: SHE IS ALLERGIC TO DARVON, DEMEROL, AND PENICILLIN. MEDICATIONS: Include Protonix, Lasix, tramadol, pravastatin, Coreg, levothyroxine, pramipexole, gabapentin, baclofen, vitamin B12, and Tylenol. REVIEW OF SYSTEMS: Reviewed. She denies nausea, vomiting, diarrhea, fever, chills, or change in vision or hearing. All others were negative other than included in the HPI. PHYSICAL EXAMINATION: VITAL SIGNS: She is afebrile. Pulse is 71, blood pressure is 153/81. GENERAL: She is an obese female, in no acute distress. HEENT: Pupils are equal, round, and reactive to light and accommodation. Extraocular movements are intact. Nose; midline septum. No rhinorrhea or epistaxis. Throat, moist. No erythema or exudate. NECK: Supple without lymphadenopathy or goiter. HEART: Bradycardic, irregular without murmur, gallop, or rub. LUNGS: Clear to auscultation and percussion bilaterally. ABDOMEN: Soft, nontender, and nondistended. Positive bowel sounds. EXTREMITIES: Without cyanosis or clubbing. There is chronic venous stasis changes and edema bilaterally. NEUROLOGIC: Cranial nerves 2 through 12 are grossly intact. DIAGNOSTIC STUDIES: Electrocardiogram is sinus rhythm, left bundle branch block and left axis deviation. Monitor revealed sinus bradycardia, mostly in the 40s to 50s. IMPRESSION: 1. Sinus bradycardia. 2. Left bundle branch block. 3. Possible history of cardiomyopathy. 4. Stroke-like symptoms. RECOMMENDATIONS: Ms. Manuel has a history of bradycardia. She states she has had this for a couple of years and has not particularly been symptomatic with this in the past. I would recommend she undergo further evaluation of her like symptoms as well as updating her echocardiogram in stress as necessary. If she has preserved left ventricular ejection fraction, then consider permanent pacemaker. If it is borderline, consider TRACK REPAIR SUPERVISOR pacemaker. If she has a low ejection fraction despite the medical therapy that she has been on, then can consider TRACK REPAIR SUPERVISOR-ICD. We will await the results of the testing before proceeding. Job ID: [id number]
--- NOTE | 2018-11-12 02:32 | CON ---
DATE OF CONSULTATION: HISTORY: Sandra Manuel is a 68-year-old white female, who initially evaluated in the hospital in April 2015. She was admitted with increased weakness, bradycardia, ventricular bigeminy, and severe anemia. In 2011, she had been hospitalized at [facility] and had an ejection fraction of 35% at that time. When she was admitted here in April 2015, one month prior to that she had had 2 to 3 days very odorous black diarrhea. Due to bradycardia, carvedilol dose was reduced. Hemoglobin dropped to 9.8 on admission to 8.0. Echocardiogram during that admission revealed left atrial and left ventricular enlargement with mild left ventricular systolic dysfunction with ejection fraction of 40% to 45%, mild tricuspid regurgitation, moderate mitral regurgitation. She underwent EGD which revealed esophageal erosions, a large and deep ulceration just below the anastomotic site of the Carrington-en-Y . No active bleeding was seen. Colonoscopy revealed small ulceration of the ileocecal valve. There was a feeling during that admission that she would eventually need cardiac catheterization with left ventricular dysfunction and her ventricular ectopy but that needed to be postponed with her GI bleed. She underwent repeat EGD which showed healing of the area. She then underwent cardiac catheterization on May 23, 2016. This revealed mild global left ventricular hypokinesis with ejection fraction of 40% to 45%. There were proximal calcifications in the LAD and the right coronary artery. There was 70% first diagonal, 30% proximal circumflex, and 30% mid RCA stenosis. It was felt that she should be treated medically. She has continued to be followed in the office. She had a right leg ulcer and was found to have right great saphenous vein venous reflux. She also developed a cough with lisinopril and that was changed to losartan. With her right leg venous ulcer, she underwent radiofrequency ablation of the right great saphenous vein on January 10, 2017. She returned for followup on January 13, 2017. She had not been taking Lasix for an unclear period of time and she was told to restart that. In January 2017, she was admitted with increased shortness of breath. She denied any chest discomfort, lightheadedness, dizziness, or syncope. She had been using an automatic compression device on each leg with dramatic improvement in her edema. Echocardiogram at that time showed an ejection fraction of 50% to 55%. It was a technically difficult exam. It was felt that she probably had a diastolic heart failure. She had severe mitral regurgitation. She has ambulated up to 1000 feet at the time of discharge with a walker. She was again admitted in January 2018 with cellulitis of both legs and edema. In March 2018, she was seen in the office for followup and continued to have problem with lower extremity ulcers and edema. In August 2018, she underwent echocardiogram in the office which revealed ejection fraction of 35% to 40% with moderate mitral regurgitation and evidence for diastolic dysfunction. Also in June 2018, she underwent cardiac PET scan which was probably normal. There is mild left ventricular dysfunction, ejection fraction of 42%. On her followup on October 07, 2018, she complained of increasing shortness of breath as well as continued to have the right leg stasis ulcer, but was almost healed. With her ejection fraction fallen from 40% to 45% to 35% to 40% with left bundle-branch block, it was recommended she see the bias machine operator helper for a biventricular pacemaker or biventricular ICD. She was seen on October [address] Ayon and arrangements were made to have some type of biventricular device placed, I believe next week. She now is admitted with slurred speech as well as very weak and generalized paresthesias. She had found it extremely difficult to ambulate. On the monitor here, she has been found to have heart rates in the low 40s with extreme sinus bradycardia. Also, echocardiogram was repeated today which showed an ejection fraction of 25% to 30%. She had episodes of chest discomfort last night, relieved with sublingual nitroglycerin. PAST MEDICAL HISTORY: Diabetes; hypertension; hyperlipidemia; coronary artery disease; morbid obesity; obstructive sleep apnea, on CPAP; several falls in the past; and bilateral rotator cuff syndrome. PAST SURGICAL HISTORY: Carrington-en-Y, laparoscopic gastric bypass in 2001, hysterectomy, and cholecystectomy. MEDICATIONS: 1. Carvedilol 6.25 b.i.d. 2. Aspirin 325 daily. 3. Atorvastatin 40 at bedtime. 4. Baclofen 10 mg at bedtime. 5. Dulcolax 10 mg p.r.n. 6. Tums 1000 mg q.4 hours p.r.n. 7. Zyrtec 10 mg daily p.r.n. 8. Furosemide 40 daily. 9. Neurontin 300 mg b.i.d. 10. Levothyroxine 75 daily. 11. Protonix 40 at bedtime. 12. Pravastatin 40 at bedtime. 13. Tramadol 50 q.6 hours p.r.n. ALLERGIES: ADHESIVE TAPE, PENICILLIN, DARVON, AND DEMEROL. FAMILY HISTORY: Brother had myocardial infarction. SOCIAL HISTORY: She does not smoke or drink. REVIEW OF SYSTEMS: Otherwise, unremarkable. PHYSICAL EXAMINATION: VITAL SIGNS: Blood pressure 154/69, pulse 56 and that has been as low as 41 per minute. HEENT: PERRL. NECK: Supple. CHEST: Clear. CARDIAC: S1 and S2 normal without any S3 or S4. There is 1/6 to 2/6 systolic ejection murmur. ABDOMEN: Morbidly obese. Nontender. EXTREMITIES: Revealed trace pretibial edema. There is healing ulcer on the right medial malleolus. NEUROLOGIC: Grossly intact. SKIN: Warm and dry. LABORATORY DATA: EKG revealed sinus bradycardia with rate of 45 per minute and left bundle-branch block (left bundle-branch block is an old finding). Echocardiogram today revealed severe left ventricular dysfunction with ejection fraction of 25 % to 30%, moderate left atrial enlargement, moderate mitral regurgitation, mild tricuspid regurgitation, mild pulmonic regurgitation. Carotid Doppler revealed calcified carotid arteries but no hemodynamically significant stenosis. Hemoglobin 10.9, hematocrit 35.1, white count 4700, and platelets 221,000. INR 1.0. Sodium 139, potassium 3.9, chloride 101, carbon dioxide 29, BUN 34, and creatinine 1.07. Cardiac enzymes are unremarkable. TSH is normal. Cholesterol 122, triglycerides 77, HDL 58, and LDL 49. IMPRESSION: 1. Profound weakness, slurred speech, and inability to ambulate. This certainly may be due to her extreme bradycardia. 2. Chronic left bundle-branch block. 3. Significant worsening of her nonischemic cardiomyopathy. Her ejection fraction over the last 2 months from 35% to 40% to 25% to 30%. 4. Coronary artery disease. Most significant lesion being a 70% stenosis in the first diagonal. In June 2018, she underwent cardiac PET scan which was probably normal. 5. Venous insufficiency with chronic right ankle ulcer. She is status post radiofrequency ablation of the right great saphenous vein. 6. History of gastrointestinal bleeding in April 2015. 7. Hypertension. 8. Diabetes. 9. Hyperlipidemia, under good control. 10. Positive family history. 11. Morbid obesity. 12. Obstructive sleep apnea. 13. History of Carrington-en-Y gastric bypass. 14. Hypothyroidism with normal TSH. PLAN: Mrs. Manuel has significant worsening of her left ventricular systolic function. She needs to have a biventricular defibrillator placed with her severe bradycardia. Electrophysiology has been consulted. In the meantime, I will discontinue her Coreg, but this will need to be restarted once her defibrillator has been placed. Job ID: [id number] [id number]
[2018-11-12] MEDS: Sodium Chloride 0.9% 1,000 ML IV SCH ×2 (04:11→21:56)
[2018-11-12] MEDS: Levothyroxine Sodium 75 MCG TAB PO SCH (05:22)
--- NOTE | 2018-11-12 08:10 | PDOC.HOSPP ---
- Subjective Encounter Date: 11/11/18 Subjective: She cont to have some intermittent chest pressure that also manifests as tightness in the chin and perioral area. Has weakness in all extremities. - Objective Vital Signs & Weight: Vital Signs (12 hours) Temp Pulse Resp BP Pulse Ox 11/12/18 06:34 99 11/12/18 05:24 150/70 H 11/12/18 04:00 97.7 F 66 20 186/79 H 99 11/11/18 23:20 97.8 F 48 L 18 136/60 92 L Weight Admit Weight 259 lb 12.8 oz Weight 259 lb 12.8 oz I&O: 11/11/18 11/12/18 11/13/18 06:59 06:59 06:59 Intake Total 2170 Output Total 2600 Balance -430 Result Diagrams: 11/10/18 07:22 11/10/18 07:22 Additional Labs: Accuchecks 11/12/18 11/11/18 11/11/18 06:01 19:52 17:05 POC Glucose 95 140 H 120 H 11/11/18 10:56 POC Glucose 129 H Hospitalist ROS - Medication Medications: Active Medications Generic Name Dose Route Start Last Admin Trade Name Freq PRN Reason Stop Dose Admin Acetaminophen 650 mg 11/10/18 09:51 11/10/18 13:58 Tylenol PO 650 mg Q4H PRN Administration Headache/Fever/Mild Pain (1-3) Aspirin 325 mg 11/11/18 09:00 11/11/18 08:24 Ecotrin PO 325 mg DAILY [facility]US Administration Atorvastatin Calcium 40 mg 11/10/18 21:00 11/11/18 21:04 Lipitor PO 40 mg HS CLAUS Administration Baclofen 10 mg 11/10/18 21:00 11/11/18 21:03 Lioresal PO 10 mg HS CLAUS Administration Carvedilol 6.25 mg 11/10/18 21:00 11/11/18 21:18 Coreg PO Not Given BID CLAUS Cyanocobalamin 5,000 mcg 11/11/18 09:00 11/11/18 08:23 Vitamin B-12 PO 5,000 mcg DAILY [facility] Administration Enoxaparin Sodium 40 mg 11/11/18 09:00 11/11/18 08:24 Lovenox SC 40 mg 0900 [facility] Administration Furosemide 40 mg 11/11/18 09:00 11/11/18 08:23 Lasix PO 40 mg DAILY [facility] Administration Gabapentin 300 mg 11/10/18 21:00 11/11/18 21:03 Neurontin PO 300 mg BID CLAUS Administration Sodium Chloride 1,000 mls @ 50 mls/hr 11/10/18 10:00 11/12/18 04:11 Normal Saline 0.9% IV 1,000 mls .Q20H [facility]US Administration Levothyroxine Sodium 75 mcg 11/11/18 06:00 11/12/18 05:22 Synthroid PO 75 mcg 0600 [facility] Administration Nitroglycerin 0.4 mg 11/11/18 02:44 11/11/18 22:13 Nitrostat SL 0.4 mg Q5MIN PRN Administration Chest Pain Pantoprazole Sodium 40 mg 11/10/18 21:00 11/11/18 21:04 Protonix PO 40 mg HS CLAUS Administration Pramipexole Dihydrochloride 1 mg 11/10/18 21:00 11/11/18 21:04 Mirapex PO 1 mg HS CLAUS Administration Pravastatin Sodium 40 mg 11/10/18 21:00 11/11/18 21:04 Pravachol PO 40 mg HS [facility]US Administration Tramadol HCl 50 mg 11/10/18 13:40 11/11/18 21:03 Ultram PO 50 mg Q6H PRN Administration Moderate Pain (4-6) - Exam General Appearance: NAD, awake alert General - other findings: Obese Heart: RRR, no murmur, no gallops, no rubs, normal peripheral pulses Heart - other findings: Bradycardia Respiratory: CTAB, no wheezes, no rales, no ronchi, normal chest expansion, no tachypnea, normal percussion Gastrointestinal: soft, non-tender, non-distended, normal bowel sounds, no palpable masses, no hepatomegaly, no splenomegaly, no bruit Musculoskeletal: generalized weakness Hosp A/P (1) Symptomatic bradycardia Code(s): R00.1 - BRADYCARDIA, UNSPECIFIED Status: Acute (2) CAD (coronary artery disease) Code(s): I25.10 - ATHSCL HEART DISEASE OF [place] CORONARY ARTERY W/O ANG PCTRS Status: Chronic (3) Hypothyroidism Code(s): E03.9 - HYPOTHYROIDISM, UNSPECIFIED Status: Chronic (4) History of Carrington-en-Y gastric bypass Code(s): Z98.84 - BARIATRIC SURGERY STATUS Status: Chronic (5) CKD (chronic kidney disease) stage 3, GFR 30-59 ml/min Status: Chronic (6) Essential hypertension Code(s): I10 - ESSENTIAL (PRIMARY) HYPERTENSION Status: Chronic (7) HLD (hyperlipidemia) Code(s): E78.5 - HYPERLIPIDEMIA, UNSPECIFIED Status: Chronic Qualifiers: Hyperlipidemia type: unspecified Qualified Code(s): E78.5 - Hyperlipidemia , unspecified (8) Morbid obesity Code(s): E66.01 - MORBID (SEVERE) OBESITY DUE TO EXCESS CALORIES Status: Chronic (9) JONATHAN (obstructive sleep apnea) Code(s): G47.33 - OBSTRUCTIVE SLEEP APNEA (ADULT) (PEDIATRIC) Status: Chronic (10) Diabetes mellitus Code(s): E11.9 - TYPE 2 DIABETES MELLITUS WITHOUT COMPLICATIONS Status: Chronic - Plan Patient has been following with Dr. Worthy. The plan was for PPM/Defib next week. Now more symptomatic. Discussed with Dr. Worthy. Has worsening cardiomyopathy. Will consult EP to get the procedure this admission. Continue to monitor here.
[2018-11-12] MEDS: Gabapentin 300 MG CAP PO SCH ×2 (08:52→21:54)
[2018-11-12] MEDS: Enoxaparin Sodium 40 MG/0.4 ML SYRINGE SC SCH (08:52)
[2018-11-12] MEDS: Furosemide 40 MG TAB PO SCH (08:53)
[2018-11-12] MEDS: Aspirin 325 mg Enteric Coated Tablet PO SCH (08:53)
[2018-11-12] MEDS: traMADol HCl 50 MG TAB PO PRN ×2 (08:53→15:34)
[2018-11-12] MEDS: Cyanocobalamin (Vitamin B-12) 1,000 MCG TAB PO SCH (08:54)
[2018-11-12] MEDS: Carvedilol 6.25 MG TAB PO SCH (11:56)
[2018-11-12] MEDS ORDERED: Senokot 8.6 MG TAB PO PRN (13:24)
--- NOTE | 2018-11-12 13:27 | PDOC.HOSPP ---
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 Otherwise she is feeling better in general. No CP and pain in the face or perioral area like yesterday. - Objective Vital Signs & Weight: Vital Signs (12 hours) Temp Pulse Resp BP Pulse Ox 11/12/18 11:52 97.7 F 60 16 143/65 H 95 11/12/18 08:00 97.1 F L 78 18 142/62 H 98 11/12/18 06:34 99 11/12/18 05:24 150/70 H 11/12/18 04:00 97.7 F 66 20 186/79 H 99 Weight Admit Weight 259 lb 12.8 oz Weight 259 lb 12.8 oz I&O: 11/11/18 11/12/18 11/13/18 06:59 06:59 06:59 Intake Total 2170 240 Output Total 2600 700 Balance -430 -460 Result Diagrams: 11/10/18 07:22 11/10/18 07:22 Additional Labs: Accuchecks 11/12/18 11/12/18 11/11/18 10:36 06:01 19:52 POC Glucose 125 H 95 140 H 11/11/18 17:05 POC Glucose 120 H Hospitalist ROS - Medication Medications: Active Medications Generic Name Dose Route Start Last Admin Trade Name Jannie PRN Reason Stop Dose Admin Acetaminophen 650 mg 11/10/18 09:51 11/10/18 13:58 Tylenol PO 650 mg Q4H PRN Administration Headache/Fever/Mild Pain (1-3) Aspirin 325 mg 11/11/18 09:00 11/12/18 08:53 Ecotrin PO 325 mg DAILY [facility] Administration Atorvastatin Calcium 40 mg 11/10/18 21:00 11/11/18 21:04 Lipitor PO 40 mg HS [facility]US Administration Baclofen 10 mg 11/10/18 21:00 11/11/18 21:03 Lioresal PO 10 mg HS CLAUS Administration Cyanocobalamin 5,000 mcg 11/11/18 09:00 11/12/18 08:54 Vitamin B-12 PO 5,000 mcg DAILY [facility] Administration Enoxaparin Sodium 40 mg 11/11/18 09:00 11/12/18 08:52 Lovenox SC 40 mg 0900 [facility] Administration Furosemide 40 mg 11/11/18 09:00 11/12/18 08:53 Lasix PO 40 mg DAILY [facility]US Administration Gabapentin 300 mg 11/10/18 21:00 11/12/18 08:52 Neurontin PO 300 mg BID CLAUS Administration Sodium Chloride 1,000 mls @ 50 mls/hr 11/10/18 10:00 11/12/18 04:11 Normal Saline 0.9% IV 1,000 mls .Q20H [facility]US Administration Levothyroxine Sodium 75 mcg 11/11/18 06:00 11/12/18 05:22 Synthroid PO 75 mcg 0600 [facility] Administration Nitroglycerin 0.4 mg 11/11/18 02:44 11/11/18 22:13 Nitrostat SL 0.4 mg Q5MIN PRN Administration Chest Pain Pantoprazole Sodium 40 mg 11/10/18 21:00 11/11/18 21:04 Protonix PO 40 mg HS CLAUS Administration Pramipexole Dihydrochloride 1 mg 11/10/18 21:00 11/11/18 21:04 Mirapex PO 1 mg HS CLAUS Administration Pravastatin Sodium 40 mg 11/10/18 21:00 11/11/18 21:04 Pravachol PO 40 mg HS CLAUS Administration Tramadol HCl 50 mg 11/10/18 13:40 11/12/18 08:53 Ultram PO 50 mg Q6H PRN Administration Moderate Pain (4-6) - Exam General Appearance: NAD, awake alert General - other findings: Morbidly obese. Heart: RRR, no murmur, no gallops, no rubs, normal peripheral pulses Respiratory: CTAB, no wheezes, no rales, no ronchi, normal chest expansion Respiratory - other findings: Compromised by exam due to habitus. Gastrointestinal: soft, non-tender, non-distended, normal bowel sounds Extremities: 1+ LE edema Musculoskeletal: generalized weakness Psychiatric: normal affect, normal behavior, A&O x 3 Hosp A/P (1) Symptomatic bradycardia Code(s): R00.1 - BRADYCARDIA, UNSPECIFIED Status: Acute (2) CAD (coronary artery disease) Code(s): I25.10 - ATHSCL HEART DISEASE OF [place] CORONARY ARTERY W/O ANG PCTRS Status: Chronic (3) Hypothyroidism Code(s): E03.9 - HYPOTHYROIDISM, UNSPECIFIED Status: Chronic (4) History of Carrington-en-Y gastric bypass Code(s): Z98.84 - BARIATRIC SURGERY STATUS Status: Chronic (5) CKD (chronic kidney disease) stage 3, GFR 30-59 ml/min Status: Chronic (6) Essential hypertension Code(s): I10 - ESSENTIAL (PRIMARY) HYPERTENSION Status: Chronic (7) HLD (hyperlipidemia) Code(s): E78.5 - HYPERLIPIDEMIA, UNSPECIFIED Status: Chronic Qualifiers: Hyperlipidemia type: unspecified Qualified Code(s): E78.5 - Hyperlipidemia , unspecified (8) Morbid obesity Code(s): E66.01 - MORBID (SEVERE) OBESITY DUE TO EXCESS CALORIES Status: Chronic (9) JONATHAN (obstructive sleep apnea) Code(s): G47.33 - OBSTRUCTIVE SLEEP APNEA (ADULT) (PEDIATRIC) Status: Chronic (10) Diabetes mellitus Code(s): E11.9 - TYPE 2 DIABETES MELLITUS WITHOUT COMPLICATIONS Status: Chronic - Plan Patient has been following with Dr. Worthy. The plan was for PPM/Defib next week. Had increased symptoms yesterday. Coreg was held and now the HR is increased and she is feeling better. Discussed with Dr. Worthy. Has worsening cardiomyopathy. Will consult EP to get the procedure this done this admission. Continue to monitor here. Add stool softeners. Physical therapy. Needs to be up in a chair and potentially walking.
[2018-11-12] MEDS: Senokot S 8.6-50 MG TAB PO PRN (15:34)
[2018-11-12] MEDS: Nitroglycerin 0.4 MG TAB (25 Tab Bottle) SL PRN ×3 (16:58→17:20)
[2018-11-12] MEDS: Insulin Regular 300 UNITS/3 ML VIAL SC PRN (18:06)
[2018-11-12] MEDS: Atorvastatin Calcium 40 MG TAB PO SCH (21:54)
[2018-11-12] MEDS: Pramipexole Di-HCl 1 MG TAB PO SCH (21:54)
[2018-11-12] MEDS: Baclofen 10 MG TAB PO SCH (21:54)
[2018-11-12] MEDS: Pravastatin Sodium 40 MG TAB PO SCH (21:54)
[2018-11-13] MEDS: Levothyroxine Sodium 75 MCG TAB PO SCH (05:06)
[2018-11-13] MEDS ORDERED: Levofloxacin 500 mg/D5W 100 ml Premix Bag ONE (08:00)
[2018-11-13] MEDS ORDERED: Clindamycin/D5W 900 MG in Premix Bag 1 BAG IVPB SCH (08:15)
[2018-11-13] MEDS ORDERED: CEFAZOLIN 1 GM VIAL ONE (09:14)
[2018-11-13] MEDS ORDERED: Clindamycin/D5W 900 mg/50 ml Premix Bag ONE (09:14)
[2018-11-13] MEDS ORDERED: Gentamicin 80 MG/2 ML VIAL ONE (09:14)
[2018-11-13] MEDS ORDERED: Lidocaine 1% (PF) 30 ML VIAL ONE ×2 (09:18→09:41)
[2018-11-13] MEDS ORDERED: Iopamidol 370 76% 50 ML VIAL FS ONE (09:39)
[2018-11-13] MEDS: Enoxaparin Sodium 40 MG/0.4 ML SYRINGE SC SCH (10:19)
[2018-11-13] MEDS: Gabapentin 300 MG CAP PO SCH ×3 (10:20→22:51)
--- NOTE | 2018-11-13 11:17 | RAD ---
XR Chest 1 View History: Pacemaker placement Comparison: Radiograph November 10, 2018 Findings: New left 3-lead AICD/pacer with leads projecting over the right atrium, right ventricle, an d coronary sinus. No pneumothorax. Heart size markedly enlarged. Bilateral anterior subcoracoid shoulder dislocations. Impression: Uncomplicated placement AICD/pacer.
[2018-11-13] MEDS: Furosemide 40 MG TAB PO SCH (11:49)
[2018-11-13] MEDS: Aspirin 325 mg Enteric Coated Tablet PO SCH (11:50)
[2018-11-13] MEDS: Cyanocobalamin (Vitamin B-12) 1,000 MCG TAB PO SCH (11:50)
[2018-11-13] MEDS ORDERED: Acetaminophen/Codeine 30-300mg Tablet PO PRN (12:00)
[2018-11-13] MEDS: Acetaminophen/Codeine 30-300mg Tablet PO PRN ×2 (12:11→14:24)
[2018-11-13] MEDS: Cephalexin 250 MG CAP PO SCH ×2 (14:24→23:00)
[2018-11-13] MEDS ORDERED: Carvedilol 3.125 MG TAB PO SCH (14:30)
[2018-11-13] MEDS ORDERED: Lidocaine 1% PF 5 ML VIAL ONE (14:40)
[2018-11-13] MEDS ORDERED: PROPOFOL 200 MG/20 ML VIAL ONE (14:40)
--- NOTE | 2018-11-13 15:09 | PDOC.HOSPP ---
- Subjective Subjective: Feels very well today. She is post-PPM/Debib implantation. No pain. Eager to get up in chair. Wants to go to SNF for rehab. Reports bilateral shoulder dislocations. Will likely need surgery at some point. - Objective Vital Signs & Weight: Vital Signs (12 hours) Temp Pulse Resp BP Pulse Ox 11/13/18 11:39 97.5 F L 60 18 168/83 H 98 11/13/18 08:00 97.9 F 71 16 161/74 H 97 11/13/18 04:00 98.1 F 64 16 147/68 H 97 Weight Admit Weight 259 lb 12.8 oz Weight 261 lb I&O: 11/12/18 11/13/18 11/14/18 06:59 06:59 06:59 Intake Total 2170 2035 Output Total 2600 3100 Balance -430 -1065 Result Diagrams: 11/10/18 07:22 11/10/18 07:22 Additional Labs: Accuchecks 11/13/18 11/13/18 11/12/18 12:38 05:56 19:36 POC Glucose 112 H 93 176 H 11/12/18 17:07 POC Glucose 160 H Hospitalist ROS - Medication Medications: Active Medications Generic Name Dose Route Start Last Admin Trade Name Freq PRN Reason Stop Dose Admin Acetaminophen 650 mg 11/10/18 09:51 11/10/18 13:58 Tylenol PO 650 mg Q4H PRN Administration Headache/Fever/Mild Pain (1-3) Acetaminophen/Codeine Phosphate 1 tab 11/13/18 12:00 11/13/18 14:24 Tylenol #3 PO 1 tab Q4H PRN Administration Mild Pain (1-3) Aspirin 325 mg 11/11/18 09:00 11/13/18 11:50 Ecotrin PO 325 mg DAILY [facility]US Administration Atorvastatin Calcium 40 mg 11/10/18 21:00 11/12/18 21:54 Lipitor PO 40 mg HS CLAUS Administration Baclofen 10 mg 11/10/18 21:00 11/12/18 21:54 Lioresal PO 10 mg HS CLAUS Administration Cephalexin 250 mg 11/13/18 15:00 11/13/18 14:24 Keflex PO 11/23/18 09:01 250 mg TID CLAUS Administration Cyanocobalamin 5,000 mcg 11/11/18 09:00 11/13/18 11:50 Vitamin B-12 PO Not Given DAILY [facility] Enoxaparin Sodium 40 mg 11/11/18 09:00 11/13/18 10:19 Lovenox SC Not Given 0900 [facility] Furosemide 40 mg 11/11/18 09:00 11/13/18 11:49 Lasix PO 40 mg DAILY CLAUS Administration Gabapentin 300 mg 11/10/18 21:00 11/13/18 11:59 Neurontin PO 300 mg BID CLAUS Administration Insulin Human Regular 0 units 11/10/18 09:50 11/12/18 18:06 Humulin R SC 2 unit .MILD SLIDING SCALE PRN Administration Mild Correctional Scale Levothyroxine Sodium 75 mcg 11/11/18 06:00 11/13/18 05:06 Synthroid PO 75 mcg 0600 [facility] Administration Nitroglycerin 0.4 mg 11/11/18 02:44 11/12/18 17:20 Nitrostat SL 0.4 mg Q5MIN PRN Administration Chest Pain Pantoprazole Sodium 40 mg 11/10/18 21:00 11/12/18 21:54 Protonix PO 40 mg HS CLAUS Administration Pramipexole Dihydrochloride 1 mg 11/10/18 21:00 11/12/18 21:54 Mirapex PO 1 mg HS CLAUS Administration Pravastatin Sodium 40 mg 11/10/18 21:00 11/12/18 21:54 Pravachol PO 40 mg HS CLAUS Administration Senna/Docusate Sodium 2 tab 11/10/18 09:51 11/12/18 15:34 Senokot S PO 2 tab BID PRN Administration Constipation Sodium Chloride 10 ml 11/13/18 09:00 11/13/18 11:50 Flush - Normal Saline IVF Not Given Q12HR [facility] Tramadol HCl 50 mg 11/10/18 13:40 11/12/18 15:34 Ultram PO 50 mg Q6H PRN Administration Moderate Pain (4-6) - Exam General Appearance: NAD, awake alert General - other findings: Obese. Eye: PERRL Heart: RRR, no murmur, no gallops, no rubs, normal peripheral pulses Heart - other findings: Left chest device pocket incision clean and dry. Minimal bruising. Respiratory: CTAB, no wheezes, no rales, no ronchi, normal chest expansion, no tachypnea, normal percussion Gastrointestinal: soft, non-tender, non-distended, normal bowel sounds, no palpable masses, no hepatomegaly, no splenomegaly, no bruit Extremities: 2+ LE edema Skin: normal turgor Neurological: cranial nerve grossly intact, no focal deficits Musculoskeletal: generalized weakness Psychiatric: normal affect, normal behavior, A&O x 3 Hosp A/P (1) Symptomatic bradycardia Code(s): R00.1 - BRADYCARDIA, UNSPECIFIED Status: Acute (2) CAD (coronary artery disease) Code(s): I25.10 - ATHSCL HEART DISEASE OF [place] CORONARY ARTERY W/O ANG PCTRS Status: Chronic (3) Hypothyroidism Code(s): E03.9 - HYPOTHYROIDISM, UNSPECIFIED Status: Chronic (4) History of Carrington-en-Y gastric bypass Code(s): Z98.84 - BARIATRIC SURGERY STATUS Status: Chronic (5) CKD (chronic kidney disease) stage 3, GFR 30-59 ml/min Status: Chronic (6) Essential hypertension Code(s): I10 - ESSENTIAL (PRIMARY) HYPERTENSION Status: Chronic (7) HLD (hyperlipidemia) Code(s): E78.5 - HYPERLIPIDEMIA, UNSPECIFIED Status: Chronic Qualifiers: Hyperlipidemia type: unspecified Qualified Code(s): E78.5 - Hyperlipidemia , unspecified (8) Morbid obesity Code(s): E66.01 - MORBID (SEVERE) OBESITY DUE TO EXCESS CALORIES Status: Chronic (9) JONATHAN (obstructive sleep apnea) Code(s): G47.33 - OBSTRUCTIVE SLEEP APNEA (ADULT) (PEDIATRIC) Status: Chronic (10) Diabetes mellitus Code(s): E11.9 - TYPE 2 DIABETES MELLITUS WITHOUT COMPLICATIONS Status: Chronic - Plan Patient has been following with Dr. Worthy. Known jose. Had Coreg stopped and the HR improved to 60's. EF necessitated the defibrillator. Will need to go back on Coreg now. Continue to monitor here. Repeat CXR in am. If ok, can DC to SNF when she is accepted somewhere. Stool softeners. Physical therapy. Needs to be up in a chair and potentially walking.
--- NOTE | 2018-11-13 16:54 | OP ---
DATE OF PROCEDURE: 11/13/2018 INDICATIONS FOR PROCEDURE: Sinus node dysfunction, ejection fraction 25%, chronic systolic heart failure with functional class III, left bundle-branch block pattern. PROCEDURE PERFORMED: Resynchronization implantable cardioverter-defibrillator implantation with defibrillation threshold testing. DESCRIPTION OF PROCEDURE: After informed consent was obtained, the patient was brought to electrophysiology laboratory. The patient was prepped and draped in the usual sterile fashion. A venogram demonstrated patency. Using lidocaine, the skin overlying the left infraclavicular fossa was localized anesthetized after the patient receiving Ancef. Using a modified Seldinger technique with the first rib approach, central accesses were achieved with 3 J-wires advanced in the central circulation. Using a #15 blade, a skin incision was made, and using a combination of sharp, blunt, and Bovie dissection, an ICD pocket was formed. The J-wires were brought to the base of the pocket. Using an [employer] sheath, central access was achieved, and primary cannulation of the coronary sinus was achieved. Coronary sinus venogram demonstrated a posteromedial branch; however, its course was not well seen. Only diminutive lateral branches were seen. There was a mid to high lateral branch that parallels the coronary sinus for a short period of time before extending down the lateral wall toward the mid lateral wall aspect. This was the vessel that was cannulated, and with an angioplasty guidewire, a left ventricular lead was placed. After removing the sheath, the lead was secured with silk ties. Adequate sensing and pacing parameters were noted. Next, using a 9-Moldovan sheath and a 7-Moldovan sheath, the ventricular and atrial leads were placed in the central circulation. The ventricular lead was advanced toward the outflow tract and dropped toward the right ventricular apical septum, where adequate sensing and pacing parameters were noted. The atrial lead was placed in the right atrial appendage region. Adequate sensing and pacing parameters were noted. Both leads were secured with silk ties. The leads were coiled into the pocket. The pocket was irrigated with copious antibiotic solution. The device was attached, placed into the pocket, and secured. The pocket was re-irrigated and then closed with 2 layers of Vicryl and skin adhesive. Defibrillation threshold testing was performed, and the device was programed. FINDINGS: The device implanted is a [employer] MRI Quad ENERGY SPECIALIST-D, serial #[id number]. The atrial lead is a 5076-52, serial #[id number]. The ventricular lead is a 6935M-55, serial #[id number]. The LV lead is a 4598-78, serial #[id number]. P waves measure 3.5, impedance is 606, threshold is 1.2 at 0.5. Ventricular electrogram is 9.3, impedance is 611, threshold is 1.1 at 0.5. LV is 12, impedance is 580, threshold 2.2 at 0.5. Through the device: Atrial threshold is 0.5 at 0.4, RV is 0.5 at 0.4, LV is 2 at 0.5. Atrial impedence 418, ventricular 475, LV is 285. P waves are 1, R waves are 10. Ventricular fibrillation was induced with a shock-on-T wave. A 20-joule countershock with a 4.6-second charge time delivering 48 ohms restored sinus mechanism. Device is programmed in a DDDR mode, lower rate of 60. LV pacing is adaptive. Mode switch is available. VT at 350. VF at 300 with the fast ventricular tachycardias under 240 milliseconds. No evident complications seen. IMPRESSION: Successful biventricular implantable cardioverter-defibrillator implantation with defibrillation threshold testing less than 20 joules. RECOMMENDATIONS: Antibiotics. Chest x-ray. Anticipate discharge home when ready. Job ID: [id number]
[2018-11-13] MEDS: Insulin Regular 300 UNITS/3 ML VIAL SC PRN (19:38)
[2018-11-13] MEDS: traMADol HCl 50 MG TAB PO PRN (19:39)
[2018-11-13] MEDS: Atorvastatin Calcium 40 MG TAB PO SCH (22:51)
[2018-11-13] MEDS: Baclofen 10 MG TAB PO SCH (22:52)
[2018-11-13] MEDS: Pramipexole Di-HCl 1 MG TAB PO SCH (22:52)
[2018-11-13] MEDS: Pravastatin Sodium 40 MG TAB PO SCH (22:53)
[2018-11-13] MEDS: HYDROcodone/Acetaminophen 5/325 mg Tablet PO PRN (23:01)
[2018-11-14] MEDS: Levothyroxine Sodium 75 MCG TAB PO SCH (05:48)
[2018-11-14] MEDS: Carvedilol 6.25 MG TAB PO SCH ×2 (09:10→17:38)
[2018-11-14] MEDS: Gabapentin 300 MG CAP PO SCH ×2 (09:11→20:04)
[2018-11-14] MEDS: Furosemide 40 MG TAB PO SCH (09:11)
[2018-11-14] MEDS: Cyanocobalamin (Vitamin B-12) 1,000 MCG TAB PO SCH (09:11)
[2018-11-14] MEDS: Aspirin 325 mg Enteric Coated Tablet PO SCH (09:11)
[2018-11-14] MEDS: Cephalexin 250 MG CAP PO SCH ×3 (09:11→20:03)
[2018-11-14] MEDS: HYDROcodone/Acetaminophen 5/325 mg Tablet PO PRN ×2 (09:11→20:12)
[2018-11-14] MEDS: Enoxaparin Sodium 40 MG/0.4 ML SYRINGE SC SCH (09:27)
--- NOTE | 2018-11-14 10:33 | RAD ---
PORTABLE CHEST: Date 11/14/18 INDICATION: Pacemaker placement follow-up. COMPARISON: 11/10/18. FINDINGS/IMPRESSION: Pacemaker device with AICD leads now noted. Leads appear in adequate position. Cardiomegaly with mild vascular congestion again noted. No acute lung finding or interval change. POS: OFF
[2018-11-14] MEDS: Insulin Regular 300 UNITS/3 ML VIAL SC PRN (11:50)
--- NOTE | 2018-11-14 12:19 | PDOC.HOSPP ---
- Subjective Encounter Date: 11/14/18 Encounter Time: 12:10 Subjective: f/u s/p ICD resynchronization and gen weakness. Ambulated with PT approx 160ft today. Appetite ok. - Objective Vital Signs & Weight: Vital Signs (12 hours) Temp Pulse Resp BP BP Pulse Ox 11/14/18 11:54 97.9 F 64 18 121/59 L 94 L 11/14/18 09:10 141/76 H 11/14/18 08:00 97.4 F L 72 18 141/76 H 96 11/14/18 05:03 97 11/14/18 04:00 97.4 F L 60 16 131/65 95 Weight Admit Weight 259 lb 12.8 oz Weight 260 lb I&O: 11/13/18 11/14/18 11/15/18 06:59 06:59 06:59 Intake Total 2035 Output Total 3100 800 Balance -1065 -800 Result Diagrams: 11/10/18 07:22 11/10/18 07:22 Additional Labs: Accuchecks 11/14/18 11/14/18 11/13/18 10:45 06:15 20:08 POC Glucose 216 H 100 194 H 11/13/18 11/13/18 16:46 12:38 POC Glucose 182 H 112 H Microbiology 02/02/17 07:15 Venous blood - Left Hand Blood Culture - Preliminary NO GROWTH AT 48 HOURS 02/02/17 06:55 Venous blood - Left Hand Blood Culture - Preliminary NO GROWTH AT 48 HOURS Laboratory Tests 02/04/17 02/05/17 02/28/18 03:32 05:51 23:58 Hgb 9.6 L 11.0 L 10.8 L Creatinine Hemoglobin A1c 02/28/18 03/02/18 23:58 06:38 Hgb Creatinine 1.27 H Hemoglobin A1c 6.4 H Radiology Reviewed by me: Yes (PCXR - PM leads in place) EKG Reviewed by me: Yes (Tele - 100% pacing) Hospitalist ROS - Medication Medications: Active Medications Generic Name Dose Route Start Last Admin Trade Name Freq PRN Reason Stop Dose Admin Acetaminophen 650 mg 11/10/18 09:51 11/10/18 13:58 Tylenol PO 650 mg Q4H PRN Administration Headache/Fever/Mild Pain (1-3) Acetaminophen/Codeine Phosphate 1 tab 11/13/18 12:00 11/13/18 14:24 Tylenol #3 PO 1 tab Q4H PRN Administration Mild Pain (1-3) Hydrocodone Bitart/Acetaminophen 1 tab 11/13/18 12:00 11/14/18 09:11 [place] 5/325 PO 1 tab Q4H PRN Administration Mild Pain Aspirin 325 mg 11/11/18 09:00 11/14/18 09:11 Ecotrin PO 325 mg DAILY [facility] Administration Atorvastatin Calcium 40 mg 11/10/18 21:00 11/13/18 22:51 Lipitor PO 40 mg HS [facility] Administration Baclofen 10 mg 11/10/18 21:00 11/13/18 22:52 Lioresal PO 10 mg HS [facility] Administration Carvedilol 6.25 mg 11/14/18 08:00 11/14/18 09:10 Coreg PO 6.25 mg BID-WM [facility] Administration Cephalexin 250 mg 11/13/18 15:00 11/14/18 09:11 Keflex PO 11/23/18 09:01 250 mg TID [facility] Administration Cyanocobalamin 5,000 mcg 11/11/18 09:00 11/14/18 09:11 Vitamin B-12 PO 5,000 mcg DAILY [facility] Administration Enoxaparin Sodium 40 mg 11/11/18 09:00 11/14/18 09:27 Lovenox SC 40 mg 899 [facility] Administration Furosemide 40 mg 11/11/18 09:00 11/14/18 09:11 Lasix PO 40 mg DAILY [facility] Administration Gabapentin 300 mg 11/10/18 21:00 11/14/18 09:11 Neurontin PO 300 mg BID [facility] Administration Insulin Human Regular 0 units 11/10/18 09:50 11/14/18 11:50 Humulin R SC 3 unit .MILD SLIDING SCALE PRN Administration Mild Correctional Scale Levothyroxine Sodium 75 mcg 11/11/18 06:00 11/14/18 05:48 Synthroid PO 75 mcg 0600 [facility] Administration Nitroglycerin 0.4 mg 11/11/18 02:44 11/12/18 17:20 Nitrostat SL 0.4 mg Q5MIN PRN Administration Chest Pain Pantoprazole Sodium 40 mg 11/10/18 21:00 11/13/18 22:52 Protonix PO 40 mg HS [facility] Administration Pramipexole Dihydrochloride 1 mg 11/10/18 21:00 11/13/18 22:52 Mirapex PO 1 mg HS [facility] Administration Pravastatin Sodium 40 mg 11/10/18 21:00 11/13/18 22:53 Pravachol PO 40 mg HS [facility]US Administration Senna 2 tab 11/12/18 13:24 11/13/18 23:00 Senokot PO 2 tab HSPRN PRN Administration Constipation Senna/Docusate Sodium 2 tab 11/10/18 09:51 11/12/18 15:34 Senokot S PO 2 tab BID PRN Administration Constipation Sodium Chloride 10 ml 11/13/18 09:00 11/14/18 09:27 Flush - Normal Saline IVF 10 ml Q12HR [facility] Administration Tramadol HCl 50 mg 11/10/18 13:40 11/13/18 19:39 Ultram PO 50 mg Q6H PRN Administration Moderate Pain (4-6) - Exam General Appearance: NAD, awake alert Eye: PERRL, anicteric sclera ENT: normocephalic atraumatic, no oropharyngeal lesions Neck: supple, symmetric, no JVD, no thyromegaly, no lymphadenopathy Heart: RRR, no gallops, no rubs Respiratory: CTAB, no wheezes, no rales, no ronchi Gastrointestinal: soft, non-tender, non-distended, normal bowel sounds Extremities: no cyanosis, no clubbing Skin: normal turgor Neurological: cranial nerve grossly intact, no new deficit Musculoskeletal: normal tone, generalized weakness Psychiatric: normal affect, A&O x 3 Hosp A/P (1) Symptomatic bradycardia Code(s): R00.1 - BRADYCARDIA, UNSPECIFIED Status: Acute Plan: s/p resynchronization ICD placment, continue low-dose Coreg (2) Diastolic CHF due to valvular disease Code(s): I38 - ENDOCARDITIS, VALVE UNSPECIFIED; I50.30 - UNSPECIFIED DIASTOLIC ( CONGESTIVE) HEART FAILURE Status: Acute Plan: Improved, continue supportive mgmt (3) CKD (chronic kidney disease) stage 3, GFR 30-59 ml/min Status: Chronic Plan: Avoid nephrotoxic medications and limit contrast exposure (4) Physical deconditioning Code(s): R53.81 - OTHER MALAISE Status: Chronic Plan: PT/OT for mobilization - Plan plan discussed w/ family, PT/OT, social director, out of bed/ambulate Stable currently Monitor telemetry Continue Coreg Consider anticoagulation PT for mobilization CM for SNF options
--- NOTE | 2018-11-14 12:21 | EKG ---
Test Reason : Blood Pressure : / mmHG Vent. Rate : 048 BPM Atrial Rate : 048 BPM P-R Int : 182 ms QRS Dur : 184 ms QT Int : 540 ms P-R-T Axes : 060 008 094 degrees QTc Int : 482 ms Marked sinus bradycardia with sinus arrhythmia Left bundle branch block Abnormal ECG Confirmed by KAHLIL MENDEZ, JEFF ([id number]), telegraph editor SHEREE CHRISTIANSEN ([id number]) on 11/14/2018 12:20:55 PM Referred By: Confirmed By:JEFF GUILLORY MD
[2018-11-14] MEDS ORDERED: Enoxaparin Sodium 80 MG/0.8 ML SYRINGE SC SCH (15:15)
--- NOTE | 2018-11-14 15:21 | PDOC.CPN ---
- Subjective Date: 11/14/18 Time: 15:15 Interval history: c/o palpitations, sweaty and SOB. New-onset tachy and v-pacing on tele in the last 2 hours. - Review of Systems General: denies: fever/chills, weight/appetite/sleep changes, night sweats, fatigue Respiratory: reports: shortness of breath Cardiovascular: reports: palpitation Gastrointestinal: denies: nausea, vomiting, diarrhea, constipation, abd pain, GI bleeding Musculoskeletal: denies: pain, tenderness, stiffness, swelling, arthritis/ arthralgias Neurological: denies: numbness, syncope, seizure, weakness - Objective Allergies/Adverse Reactions: Allergies Allergy/AdvReac Type Severity Reaction Status Date / Time adhesive Allergy Verified 03/01/18 04:36 meperidine HCl [From Demerol] Allergy "can't Verified 03/01/18 04:36 breathe" Penicillins Allergy swelling, Verified 06/01/16 07:37 hives propoxyphene HCl Allergy Hallucinate Verified 03/01/18 04:36 [From Darvon] Visit Medications: Current Medications Acetaminophen (Tylenol) 650 mg PO Q4H PRN PRN Reason: Headache/Fever/Mild Pain (1-3) Last Admin: 11/10/18 13:58 Dose: 650 mg Acetaminophen/Codeine Phosphate (Tylenol #3) 1 tab PO Q4H PRN PRN Reason: Mild Pain (1-3) Last Admin: 11/13/18 14:24 Dose: 1 tab Acetaminophen/Codeine Phosphate (Tylenol #3) 2 tab PO Q4H PRN PRN Reason: Moderate Pain (4-6) Hydrocodone Bitart/Acetaminophen ([place] 5/325) 1 tab PO Q4H PRN PRN Reason: Mild Pain Last Admin: 11/14/18 09:11 Dose: 1 tab Hydrocodone Bitart/Acetaminophen ([place] 5/325) 2 tab PO Q4H PRN PRN Reason: For Moderate Pain Aspirin (Ecotrin) 325 mg PO DAILY [facility] Last Admin: 11/14/18 09:11 Dose: 325 mg Atorvastatin Calcium (Lipitor) 40 mg PO HS [facility] Last Admin: 11/13/18 22:51 Dose: 40 mg Baclofen (Lioresal) 10 mg PO HS [facility] Last Admin: 11/13/18 22:52 Dose: 10 mg Bisacodyl (Dulcolax) 10 mg [place] DAILYPRN PRN PRN Reason: Constipation Calcium Carbonate (Tums) 1,000 mg PO Q4H PRN PRN Reason: Heartburn or Indigestion Carvedilol (Coreg) 6.25 mg PO BID-[facility] Last Admin: 11/14/18 09:10 Dose: 6.25 mg Cephalexin (Keflex) 250 mg PO TID [facility] Stop: 11/23/18 09:01 Last Admin: 11/14/18 09:11 Dose: 250 mg Cyanocobalamin (Vitamin B-12) 5,000 mcg PO DAILY [facility] Last Admin: 11/14/18 09:11 Dose: 5,000 mcg Dextrose/Water (Dextrose 50%) 25 gm SLOW IVP PRN PRN PRN Reason: Hypoglycemia Enoxaparin Sodium (Lovenox) 80 mg SC ONE [facility] Enoxaparin Sodium (Lovenox) 120 mg SC 09,2099 [facility] Furosemide (Lasix) 40 mg PO DAILY [facility] Last Admin: 11/14/18 09:11 Dose: 40 mg Gabapentin (Neurontin) 300 mg PO BID [facility] Last Admin: 11/14/18 09:11 Dose: 300 mg Glucagon (Glucagon) 1 mg IM PRN PRN PRN Reason: Hypoglycemia Hydralazine HCl (Apresoline) 10 mg SLOW IVP Q4H PRN PRN Reason: BP > 220/110 Dextrose/Water (D5w) 1,000 mls @ 0 mls/hr IV .Q0M PRN PRN Reason: Hypoglycemia Amiodarone HCl 450 mg/ (Dextrose/Water) 259 mls @ 0 mls/hr IVPB INF [facility]; Protocol Insulin Human Regular (Humulin R) 0 units [place] .MILD SLIDING SCALE PRN PRN Reason: Mild Correctional Scale Last Admin: 11/14/18 11:50 Dose: 3 unit Insulin Human Regular (Humulin R) 0 units [place] .BEDTIME SLIDING SC PRN PRN Reason: Bedtime Correctional Scale Levothyroxine Sodium (Synthroid) 75 mcg PO 0600 [facility] Last Admin: 11/14/18 05:48 Dose: 75 mcg Nitroglycerin (Nitrostat) 0.4 mg SL Q5MIN PRN PRN Reason: Chest Pain Last Admin: 11/12/18 17:20 Dose: 0.4 mg Ondansetron HCl (Zofran Odt) 4 mg PO Q6H PRN PRN Reason: Nausea/Vomiting Ondansetron HCl (Zofran) 4 mg IVP Q6H PRN PRN Reason: Nausea/Vomiting Pantoprazole Sodium (Protonix) 40 mg PO HS [facility] Last Admin: 11/13/18 22:52 Dose: 40 mg Pramipexole Dihydrochloride (Mirapex) 1 mg PO HS [facility] Last Admin: 11/13/18 22:52 Dose: 1 mg Pravastatin Sodium (Pravachol) 40 mg PO HS [facility] Last Admin: 11/13/18 22:53 Dose: 40 mg Senna (Senokot) 2 tab PO HSPRN PRN PRN Reason: Constipation Last Admin: 11/13/18 23:00 Dose: 2 tab Senna/Docusate Sodium (Senokot S) 2 tab PO BID PRN PRN Reason: Constipation Last Admin: 11/12/18 15:34 Dose: 2 tab Sodium Chloride (Flush - Normal Saline) 10 ml IVF PRN PRN PRN Reason: Saline Flush Sodium Chloride (Flush - Normal Saline) 10 ml IVF PRN PRN PRN Reason: Saline Flush Sodium Chloride (Flush - Normal Saline) 10 ml IVF Q12HR [facility] Last Admin: 11/14/18 09:27 Dose: 10 ml Sodium Chloride (Flush - Normal Saline) 10 ml IVF PRN PRN PRN Reason: Saline Flush Tramadol HCl (Ultram) 50 mg PO Q6H PRN PRN Reason: Moderate Pain (4-6) Last Admin: 11/13/18 19:39 Dose: 50 mg Vital Signs & Weight: Vital Signs Temp Pulse Pulse Pulse Resp BP BP 11/14/18 11:54 97.9 F 64 18 11/14/18 10:15 60 80 121/59 L 11/14/18 09:10 141/76 H 11/14/18 08:00 97.4 F L 72 18 11/14/18 05:03 11/14/18 04:00 97.4 F L 60 16 BP BP Pulse Ox 11/14/18 11:54 121/59 L 94 L 11/14/18 10:15 111/58 L 11/14/18 09:10 11/14/18 08:00 141/76 H 96 11/14/18 05:03 97 11/14/18 04:00 131/65 95 Admit Weight 259 lb 12.8 oz Weight 260 lb - Physical Exam General: alert & oriented x3, other (diaphoretic) Neck: supple neck Cardiac: tachycardia Lungs: clear to auscultation, no wheeze, rales, rhonchi Neuro: grossly intact Abdomen: soft, non-tender - Labs Result Diagrams: 11/10/18 07:22 11/10/18 07:22 Troponin/CKMB Troponin I Less than 0.010 ng/mL (< 0.028) 11/11/18 06:03 - Telemetry Sinus rhythms and dysrhythmias: other (v-paced and regular. Probable underlying AF/AFl) - Assessment/Plan Assessment/Plan: 1. Atrial tach/flutter 2. 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 Chronic systolic CHF New-onset atrial arrhythmias. Will add Amio IV gtt and fully anticoagulate. If no improvement add Digoxin. Monitor closely. Agree with the above New onset aflutter Give 1st dose of ACT tomrorrow given recent pacer pocket Pt rate controlled ?abltion
[2018-11-14] MEDS: Amiodarone 450 MG in Dextrose 5% in Water 250 ML IVPB SCH ×2 (17:19→22:24)
[2018-11-14] MEDS ORDERED: Enoxaparin Sodium 120 MG/0.8 ML SYRINGE SC SCH ×2 (18:45→21:00)
[2018-11-14] MEDS: Pramipexole Di-HCl 1 MG TAB PO SCH (20:03)
[2018-11-14] MEDS: Baclofen 10 MG TAB PO SCH (20:03)
[2018-11-14] MEDS: Senokot S 8.6-50 MG TAB PO PRN (20:03)
[2018-11-14] MEDS: Atorvastatin Calcium 40 MG TAB PO SCH (20:04)
[2018-11-14] MEDS: Pravastatin Sodium 40 MG TAB PO SCH (20:04)
[2018-11-15] MEDS: HYDROcodone/Acetaminophen 5/325 mg Tablet PO PRN ×4 (03:08→20:06)
[2018-11-15] MEDS: Levothyroxine Sodium 75 MCG TAB PO SCH (05:30)
[2018-11-15 05:49] LABS: Hemoglobin 11.8 g/dL (12.0-16.0); Platelet Count 180 thou/uL (130-400)
[2018-11-15] MEDS ORDERED: Enoxaparin Sodium 120 MG/0.8 ML SYRINGE SC SCH (09:00)
[2018-11-15] MEDS: Furosemide 40 MG TAB PO SCH (09:01)
[2018-11-15] MEDS: Aspirin 325 mg Enteric Coated Tablet PO SCH (09:01)
[2018-11-15] MEDS: Cephalexin 250 MG CAP PO SCH ×3 (09:01→20:05)
[2018-11-15] MEDS: Carvedilol 6.25 MG TAB PO SCH ×2 (09:01→16:25)
[2018-11-15] MEDS: Cyanocobalamin (Vitamin B-12) 1,000 MCG TAB PO SCH (09:01)
[2018-11-15] MEDS: Gabapentin 300 MG CAP PO SCH ×2 (09:01→20:05)
[2018-11-15] MEDS: Insulin Regular 300 UNITS/3 ML VIAL SC PRN (12:16)
[2018-11-15] MEDS: Amiodarone 450 MG in Dextrose 5% in Water 250 ML IVPB SCH (12:16)
--- NOTE | 2018-11-15 14:29 | PDOC.HOSPP ---
- Subjective Encounter Date: 11/15/18 Encounter Time: 14:30 Subjective: f/u s/p ICD resynchronization with A-fib RVR in last 24h on Amiodarone gtt. Currently paced in the 60's. No new complaints. - Objective Vital Signs & Weight: Vital Signs (12 hours) Temp Pulse Resp BP BP Pulse Ox 11/15/18 12:12 97.4 F L 60 15 119/58 L 93 L 11/15/18 09:01 144/64 H 11/15/18 08:00 97.4 F L 60 19 128/63 99 11/15/18 03:59 97.5 F L 60 16 118/69 96 Weight Admit Weight 259 lb 12.8 oz Weight 257 lb 4.8 oz I&O: 11/14/18 11/15/18 11/16/18 06:59 06:59 06:59 Intake Total 380 Output Total 800 850 Balance -800 -470 Result Diagrams: 11/15/18 05:25 11/15/18 05:25 Additional Labs: Accuchecks 11/15/18 11/15/18 11/14/18 10:57 06:00 19:55 POC Glucose 162 H 102 258 H 11/14/18 17:05 POC Glucose 122 H Microbiology 02/02/17 07:15 Venous blood - Left Hand Blood Culture - Preliminary NO GROWTH AT 48 HOURS 02/02/17 06:55 Venous blood - Left Hand Blood Culture - Preliminary NO GROWTH AT 48 HOURS Laboratory Tests 02/04/17 02/05/17 02/28/18 03:32 05:51 23:58 Hgb 9.6 L 11.0 L 10.8 L Creatinine Hemoglobin A1c 02/28/18 03/02/18 23:58 06:38 Hgb Creatinine 1.27 H Hemoglobin A1c 6.4 H Radiology Reviewed by me: Yes (PCXR - mild vascular prominence, PM device in place) EKG Reviewed by me: Yes (Tele - AV pacing in 's) Hospitalist ROS - Medication Medications: Active Medications Generic Name Dose Route Start Last Admin Trade Name Freq PRN Reason Stop Dose Admin Acetaminophen 650 mg 11/10/18 09:51 11/10/18 13:58 Tylenol PO 650 mg Q4H PRN Administration Headache/Fever/Mild Pain (1-3) Acetaminophen/Codeine Phosphate 1 tab 11/13/18 12:00 11/13/18 14:24 Tylenol #3 PO 1 tab Q4H PRN Administration Mild Pain (1-3) Hydrocodone Bitart/Acetaminophen 1 tab 11/13/18 12:00 11/15/18 03:08 [place] 5/325 PO 1 tab Q4H PRN Administration Mild Pain Hydrocodone Bitart/Acetaminophen 2 tab 11/13/18 12:00 11/15/18 14:05 [place] 5/325 PO 2 tab Q4H PRN Administration For Moderate Pain Aspirin 325 mg 11/11/18 09:00 11/15/18 09:01 Ecotrin PO 325 mg DAILY [facility] Administration Atorvastatin Calcium 40 mg 11/10/18 21:00 11/14/18 20:04 Lipitor PO 40 mg HS [facility] Administration Baclofen 10 mg 11/10/18 21:00 11/14/18 20:03 Lioresal PO 10 mg HS [facility] Administration Carvedilol 6.25 mg 11/14/18 08:00 11/15/18 09:01 Coreg PO 6.25 mg BID-[facility] Administration Cephalexin 250 mg 11/13/18 15:00 11/15/18 14:04 Keflex PO 11/23/18 09:01 250 mg TID [facility] Administration Cyanocobalamin 5,000 mcg 11/11/18 09:00 11/15/18 09:01 Vitamin B-12 PO 5,000 mcg DAILY [facility] Administration Furosemide 40 mg 11/11/18 09:00 11/15/18 09:01 Lasix PO 40 mg DAILY [facility] Administration Gabapentin 300 mg 11/10/18 21:00 11/15/18 09:01 Neurontin PO 300 mg BID [facility] Administration Amiodarone HCl 450 mg/ 259 mls @ 0 mls/hr 11/14/18 15:15 11/15/18 12:16 Dextrose/Water IVPB 259 mls INF [facility] Administration Protocol Per Protocol Insulin Human Regular 0 units 11/10/18 09:50 11/15/18 12:16 Humulin R SC 2 unit .MILD SLIDING SCALE PRN Administration Mild Correctional Scale Insulin Human Regular 0 units 11/10/18 09:50 11/14/18 20:17 Humulin R SC 3 unit .BEDTIME SLIDING SC PRN Administration Bedtime Correctional Scale Levothyroxine Sodium 75 mcg 11/11/18 06:00 11/15/18 05:30 Synthroid PO 75 mcg 0600 [facility] Administration Nitroglycerin 0.4 mg 11/11/18 02:44 11/12/18 17:20 Nitrostat SL 0.4 mg Q5MIN PRN Administration Chest Pain Pantoprazole Sodium 40 mg 11/10/18 21:00 11/14/18 20:04 Protonix PO 40 mg HS [facility] Administration Pramipexole Dihydrochloride 1 mg 11/10/18 21:00 11/14/18 20:03 Mirapex PO 1 mg HS [facility] Administration Pravastatin Sodium 40 mg 11/10/18 21:00 11/14/18 20:04 Pravachol PO 40 mg HS [facility] Administration Senna 2 tab 11/12/18 13:24 11/13/18 23:00 Senokot PO 2 tab HSPRN PRN Administration Constipation Senna/Docusate Sodium 2 tab 11/10/18 09:51 11/14/18 20:03 Senokot S PO 2 tab BID PRN Administration Constipation Sodium Chloride 10 ml 11/13/18 09:00 11/15/18 09:03 Flush - Normal Saline IVF Not Given Q12HR [facility] Tramadol HCl 50 mg 11/10/18 13:40 11/13/18 19:39 Ultram PO 50 mg Q6H PRN Administration Moderate Pain (4-6) - Exam General Appearance: NAD, awake alert Eye: PERRL, anicteric sclera ENT: normocephalic atraumatic, no oropharyngeal lesions Neck: supple, symmetric, no JVD, no thyromegaly, no lymphadenopathy Heart: RRR, no gallops, no rubs, normal peripheral pulses Respiratory: CTAB, no wheezes, no rales, no ronchi Gastrointestinal: soft, non-tender, non-distended, normal bowel sounds, no palpable masses Extremities: no cyanosis, no clubbing, no edema Skin: normal turgor Skin - other findings: multiple areas of bruising, ecchymosis on chest Neurological: cranial nerve grossly intact, no new deficit Musculoskeletal: normal tone Hosp A/P (1) Atrial tachycardia Code(s): I47.1 - SUPRAVENTRICULAR TACHYCARDIA Status: Acute Plan: Current Amiodarone gtt transitioning to po, continue rate control, EP consult, Lovenox d/c'd, continue ASA (2) Symptomatic bradycardia Code(s): R00.1 - BRADYCARDIA, UNSPECIFIED Status: Acute Plan: s/p Bi-V ICD placement, see above (3) Diastolic CHF due to valvular disease Code(s): I38 - ENDOCARDITIS, VALVE UNSPECIFIED; I50.30 - UNSPECIFIED DIASTOLIC ( CONGESTIVE) HEART FAILURE Status: Acute Plan: Continue Lasix 40mg po daily (4) CKD (chronic kidney disease) stage 3, GFR 30-59 ml/min Status: Chronic (5) Physical deconditioning Code(s): R53.81 - OTHER MALAISE Status: Chronic Plan: PT/OT for mobilization - Plan plan discussed w/ family, PT/OT, 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
--- NOTE | 2018-11-15 14:34 | PDOC.CPN ---
- Subjective Date: 11/15/18 Time: 14:32 - Review of Systems General: denies: fever/chills, weight/appetite/sleep changes, night sweats, fatigue Respiratory: denies: cough, congestion, shortness of breath, exercise intolerance Cardiovascular: denies: chest pain, palpitation, edema, paroxysmal nocturnal dyspnea, orthopnea Gastrointestinal: denies: nausea, vomiting, diarrhea, constipation, abd pain, GI bleeding Musculoskeletal: reports: tenderness (to left chest wall) Neurological: denies: numbness, syncope, seizure, weakness - Objective Allergies/Adverse Reactions: Allergies Allergy/AdvReac Type Severity Reaction Status Date / Time adhesive Allergy Verified 03/01/18 04:36 meperidine HCl [From Demerol] Allergy "can't Verified 03/01/18 04:36 breathe" Penicillins Allergy swelling, Verified 06/01/16 07:37 hives propoxyphene HCl Allergy Hallucinate Verified 03/01/18 04:36 [From Darvon] Visit Medications: Current Medications Acetaminophen (Tylenol) 650 mg PO Q4H PRN PRN Reason: Headache/Fever/Mild Pain (1-3) Last Admin: 11/10/18 13:58 Dose: 650 mg Acetaminophen/Codeine Phosphate (Tylenol #3) 1 tab PO Q4H PRN PRN Reason: Mild Pain (1-3) Last Admin: 11/13/18 14:24 Dose: 1 tab Acetaminophen/Codeine Phosphate (Tylenol #3) 2 tab PO Q4H PRN PRN Reason: Moderate Pain (4-6) Hydrocodone Bitart/Acetaminophen ([place] 5/325) 1 tab PO Q4H PRN PRN Reason: Mild Pain Last Admin: 11/15/18 03:08 Dose: 1 tab Hydrocodone Bitart/Acetaminophen ([place] 5/325) 2 tab PO Q4H PRN PRN Reason: For Moderate Pain Last Admin: 11/15/18 14:05 Dose: 2 tab Aspirin (Ecotrin) 325 mg PO DAILY [facility] Last Admin: 11/15/18 09:01 Dose: 325 mg Atorvastatin Calcium (Lipitor) 40 mg PO HS [facility] Last Admin: 11/14/18 20:04 Dose: 40 mg Baclofen (Lioresal) 10 mg PO HS [facility] Last Admin: 11/14/18 20:03 Dose: 10 mg Bisacodyl (Dulcolax) 10 mg [place] DAILYPRN PRN PRN Reason: Constipation Calcium Carbonate (Tums) 1,000 mg PO Q4H PRN PRN Reason: Heartburn or Indigestion Carvedilol (Coreg) 6.25 mg PO BID-[facility] Last Admin: 11/15/18 09:01 Dose: 6.25 mg Cephalexin (Keflex) 250 mg PO TID [facility] Stop: 11/23/18 09:01 Last Admin: 11/15/18 14:04 Dose: 250 mg Cyanocobalamin (Vitamin B-12) 5,000 mcg PO DAILY [facility] Last Admin: 11/15/18 09:01 Dose: 5,000 mcg Dextrose/Water (Dextrose 50%) 25 gm SLOW IVP PRN PRN PRN Reason: Hypoglycemia Furosemide (Lasix) 40 mg PO DAILY [facility] Last Admin: 11/15/18 09:01 Dose: 40 mg Gabapentin (Neurontin) 300 mg PO BID [facility] Last Admin: 11/15/18 09:01 Dose: 300 mg Glucagon (Glucagon) 1 mg IM PRN PRN PRN Reason: Hypoglycemia Hydralazine HCl (Apresoline) 10 mg SLOW IVP Q4H PRN PRN Reason: BP > 220/110 Dextrose/Water (D5w) 1,000 mls @ 0 mls/hr IV .Q0M PRN PRN Reason: Hypoglycemia Amiodarone HCl 450 mg/ (Dextrose/Water) 259 mls @ 0 mls/hr IVPB INF [facility]; Protocol Last Admin: 11/15/18 12:16 Dose: 259 mls Insulin Human Regular (Humulin R) 0 units SC .MILD SLIDING SCALE PRN PRN Reason: Mild Correctional Scale Last Admin: 11/15/18 12:16 Dose: 2 unit Insulin Human Regular (Humulin R) 0 units SC .BEDTIME SLIDING SC PRN PRN Reason: Bedtime Correctional Scale Last Admin: 11/14/18 20:17 Dose: 3 unit Levothyroxine Sodium (Synthroid) 75 mcg PO 0600 [facility] Last Admin: 11/15/18 05:30 Dose: 75 mcg Nitroglycerin (Nitrostat) 0.4 mg SL Q5MIN PRN PRN Reason: Chest Pain Last Admin: 11/12/18 17:20 Dose: 0.4 mg Ondansetron HCl (Zofran Odt) 4 mg PO Q6H PRN PRN Reason: Nausea/Vomiting Ondansetron HCl (Zofran) 4 mg IVP Q6H PRN PRN Reason: Nausea/Vomiting Pantoprazole Sodium (Protonix) 40 mg PO HS [facility] Last Admin: 11/14/18 20:04 Dose: 40 mg Pramipexole Dihydrochloride (Mirapex) 1 mg PO HS [facility] Last Admin: 11/14/18 20:03 Dose: 1 mg Pravastatin Sodium (Pravachol) 40 mg PO HS [facility] Last Admin: 11/14/18 20:04 Dose: 40 mg Senna (Senokot) 2 tab PO HSPRN PRN PRN Reason: Constipation Last Admin: 11/13/18 23:00 Dose: 2 tab Senna/Docusate Sodium (Senokot S) 2 tab PO BID PRN PRN Reason: Constipation Last Admin: 11/14/18 20:03 Dose: 2 tab Sodium Chloride (Flush - Normal Saline) 10 ml IVF PRN PRN PRN Reason: Saline Flush Sodium Chloride (Flush - Normal Saline) 10 ml IVF PRN PRN PRN Reason: Saline Flush Sodium Chloride (Flush - Normal Saline) 10 ml IVF Q12HR [facility] Last Admin: 11/15/18 09:03 Dose: Not Given Sodium Chloride (Flush - Normal Saline) 10 ml IVF PRN PRN PRN Reason: Saline Flush Tramadol HCl (Ultram) 50 mg PO Q6H PRN PRN Reason: Moderate Pain (4-6) Last Admin: 11/13/18 19:39 Dose: 50 mg Vital Signs & Weight: Vital Signs Temp Pulse Resp BP BP Pulse Ox 11/15/18 12:12 97.4 F L 60 15 119/58 L 93 L 11/15/18 09:01 144/64 H 11/15/18 08:00 97.4 F L 60 19 128/63 99 11/15/18 03:59 97.5 F L 60 16 118/69 96 Admit Weight 259 lb 12.8 oz Weight 257 lb 4.8 oz - Physical Exam General: alert & oriented x3, appears well HEENT: mucus membranes moist Neck: supple neck Cardiac: regular rate and rhythm Lungs: clear to auscultation Abdomen: soft, non-tender Skin: brusing (left ICD site with moderate bruising. Minimal swelling increased compared to yesterday. Multiple bruises to abdomen/other extremities.) - Labs Result Diagrams: 11/15/18 05:25 11/15/18 05:25 Troponin/CKMB Troponin I Less than 0.010 ng/mL (< 0.028) 11/11/18 06:03 - Assessment/Plan Assessment/Plan: 1. Atrial tach/flutter 2. 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 Chronic systolic CHF Rate-controlled currently. Hold lovenox tonight. EP to see tomorrow.
[2018-11-15] MEDS: Pramipexole Di-HCl 1 MG TAB PO SCH (20:05)
[2018-11-15] MEDS: Baclofen 10 MG TAB PO SCH (20:05)
[2018-11-15] MEDS: Pravastatin Sodium 40 MG TAB PO SCH (20:05)
[2018-11-15] MEDS: Atorvastatin Calcium 40 MG TAB PO SCH (20:06)
[2018-11-15] MEDS: Senokot S 8.6-50 MG TAB PO PRN (20:06)
[2018-11-16] MEDS: Amiodarone 450 MG in Dextrose 5% in Water 250 ML IVPB SCH (02:28)
[2018-11-16] MEDS: HYDROcodone/Acetaminophen 5/325 mg Tablet PO PRN ×3 (04:33→22:36)
[2018-11-16] MEDS: Levothyroxine Sodium 75 MCG TAB PO SCH (05:54)
[2018-11-16] MEDS: Cyanocobalamin (Vitamin B-12) 1,000 MCG TAB PO SCH (09:11)
[2018-11-16] MEDS: Carvedilol 6.25 MG TAB PO SCH ×2 (09:12→18:16)
[2018-11-16] MEDS: Cephalexin 250 MG CAP PO SCH ×3 (09:12→22:36)
[2018-11-16] MEDS: Furosemide 40 MG TAB PO SCH (09:12)
[2018-11-16] MEDS: Gabapentin 300 MG CAP PO SCH ×2 (09:12→22:36)
[2018-11-16] MEDS: Aspirin 325 mg Enteric Coated Tablet PO SCH (09:12)
--- NOTE | 2018-11-16 14:22 | PRG ---
DATE OF SERVICE: 11/16/2018 SUBJECTIVE: Ms. Manuel seems to be doing better today. She converted back to sinus rhythm. She was placed on amiodarone overnight, and the amiodarone drip is still on. She denies dizziness or loss of consciousness. No stroke-like symptoms. No neurological deficits. No fever, chills, or cough. OBJECTIVE DATA: VITAL SIGNS: Blood pressure is 161/65, heart rate , respiratory rate 18, and temperature 98.5 degrees Fahrenheit. GENERAL: Alert and oriented woman, in no apparent distress. NECK: Supple. Jugular veins not distended. CHEST: Coarse without crackles. HEART: Sounds are regular to rate and rhythm. No murmur or gallop. Left precordial ICD insertion site is without significant hematoma. CHEST: Coarse without crackles. ABDOMEN: Benign. Bowel sounds positive. EXTREMITIES: Lower extremities without edema, clubbing, or cyanosis. Obesity is noted. DATABASE: No new labs today. The chest x-ray postimplant reveals no pneumothorax. Adequate ICD lead location. ASSESSMENT: Ms. Manuel is a pleasant 68-year-old woman, I saw in the office for bradycardia and left bundle-branch block and [id number] cardiomyopathy. She was admitted with dizzy, lightheaded spells, possible mild transient ischemic attack and she was noted to have LVEF down in 25% to 30% range. She underwent a Bi-V ICD implantation by Dr. Munoz on Friday, which initially helped her asymptomatically, but later she developed atrial fibrillation. She become dyspneic again. She was placed on amiodarone for rhythm control and this morning, she is back in sinus rhythm by EKGs. PLAN: My plan will be at this point: 1. Transition from IV to p.o. amiodarone. 2. Periodic liver, thyroid, and lung function test .. 3. Repeat ICD interrogation. 4. Consider turning atrial ATPs on and also consider ablation, long-term pressure recurrent atrial arrhythmias are seen. 5. Continue oral anticoagulation. 6. Pressure dressing for pacemaker hematoma. 7. The patient likely could transition to rehab and follow up in the office for 2-week wound check. Job ID: [id number]
--- NOTE | 2018-11-16 15:22 | PDOC.HOSPP ---
- Subjective Encounter Date: 11/16/18 Encounter Time: 15:20 Subjective: f/u atrial tachycardia s/p ICD resynchronization on current Amiodarone. Feels weak overall but no fever or dyspnea. - Objective Vital Signs & Weight: Vital Signs (12 hours) Temp Pulse Pulse Pulse Resp BP BP 11/16/18 13:52 60 60 138/69 11/16/18 12:00 98.5 F 58 L 18 11/16/18 09:12 128/61 11/16/18 08:00 97.8 F 59 L 17 11/16/18 04:00 97.5 F L 59 L 18 BP BP Pulse Ox 11/16/18 13:52 131/60 11/16/18 12:00 161/65 H 93 L 11/16/18 09:12 11/16/18 08:00 135/63 98 11/16/18 04:00 121/55 L 97 Weight Admit Weight 259 lb 12.8 oz Weight 255 lb 3.2 oz I&O: 11/15/18 11/16/18 11/17/18 06:59 06:59 06:59 Intake Total 380 1338 Output Total 850 Balance -470 1338 Result Diagrams: 11/15/18 05:25 11/15/18 05:25 Additional Labs: Accuchecks 11/16/18 11/16/18 11/15/18 10:51 06:19 20:23 POC Glucose 145 H 114 H 168 H 11/15/18 17:14 POC Glucose 123 H Microbiology 02/02/17 07:15 Venous blood - Left Hand Blood Culture - Preliminary NO GROWTH AT 48 HOURS 02/02/17 06:55 Venous blood - Left Hand Blood Culture - Preliminary NO GROWTH AT 48 HOURS Laboratory Tests 02/04/17 02/05/17 02/28/18 03:32 05:51 23:58 Hgb 9.6 L 11.0 L 10.8 L Creatinine Hemoglobin A1c 02/28/18 03/02/18 23:58 06:38 Hgb Creatinine 1.27 H Hemoglobin A1c 6.4 H EKG Reviewed by me: Yes (Tele - AV paced in 60's) Hospitalist ROS - Medication Medications: Active Medications Generic Name Dose Route Start Last Admin Trade Name Freq PRN Reason Stop Dose Admin Acetaminophen 650 mg 11/10/18 09:51 11/10/18 13:58 Tylenol PO 650 mg Q4H PRN Administration Headache/Fever/Mild Pain (1-3) Acetaminophen/Codeine Phosphate 1 tab 11/13/18 12:00 11/13/18 14:24 Tylenol #3 PO 1 tab Q4H PRN Administration Mild Pain (1-3) Acetaminophen/Codeine Phosphate 2 tab 11/13/18 12:00 11/16/18 09:14 Tylenol #3 PO 2 tab Q4H PRN Administration Moderate Pain (4-6) Hydrocodone Bitart/Acetaminophen 1 tab 11/13/18 12:00 11/15/18 03:08 [place] 5/325 PO 1 tab Q4H PRN Administration Mild Pain Hydrocodone Bitart/Acetaminophen 2 tab 11/13/18 12:00 11/16/18 04:33 [place] 5/325 PO 2 tab Q4H PRN Administration For Moderate Pain Aspirin 325 mg 11/11/18 09:00 11/16/18 09:12 Ecotrin PO 325 mg DAILY CLAUS Administration Atorvastatin Calcium 40 mg 11/10/18 21:00 11/15/18 20:06 Lipitor PO 40 mg HS CLAUS Administration Baclofen 10 mg 11/10/18 21:00 11/15/18 20:05 Lioresal PO 10 mg HS CLAUS Administration Carvedilol 6.25 mg 11/14/18 08:00 11/16/18 09:12 Coreg PO 6.25 mg BID-WM CLAUS Administration Cephalexin 250 mg 11/13/18 15:00 11/16/18 09:12 Keflex PO 11/23/18 09:01 250 mg TID CLAUS Administration Cyanocobalamin 5,000 mcg 11/11/18 09:00 11/16/18 09:11 Vitamin B-12 PO 5,000 mcg DAILY CLAUS Administration Furosemide 40 mg 11/11/18 09:00 11/16/18 09:12 Lasix PO 40 mg DAILY CLAUS Administration Gabapentin 300 mg 11/10/18 21:00 11/16/18 09:12 Neurontin PO 300 mg BID CLAUS Administration Amiodarone HCl 450 mg/ 259 mls @ 0 mls/hr 11/14/18 15:15 11/16/18 02:28 Dextrose/Water IVPB 259 mls INF CLAUS Administration Protocol Per Protocol Insulin Human Regular 0 units 11/10/18 09:50 11/15/18 12:16 Humulin R SC 2 unit .MILD SLIDING SCALE PRN Administration Mild Correctional Scale Insulin Human Regular 0 units 11/10/18 09:50 11/14/18 20:17 Humulin R SC 3 unit .BEDTIME SLIDING SC PRN Administration Bedtime Correctional Scale Levothyroxine Sodium 75 mcg 11/11/18 06:00 11/16/18 05:54 Synthroid PO 75 mcg 0600 CLAUS Administration Nitroglycerin 0.4 mg 11/11/18 02:44 11/12/18 17:20 Nitrostat SL 0.4 mg Q5MIN PRN Administration Chest Pain Pantoprazole Sodium 40 mg 11/10/18 21:00 11/15/18 20:05 Protonix PO 40 mg HS CLAUS Administration Pramipexole Dihydrochloride 1 mg 11/10/18 21:00 11/15/18 20:05 Mirapex PO 1 mg HS CLAUS Administration Pravastatin Sodium 40 mg 11/10/18 21:00 11/15/18 20:05 Pravachol PO 40 mg HS CLAUS Administration Senna 2 tab 11/12/18 13:24 11/13/18 23:00 Senokot PO 2 tab HSPRN PRN Administration Constipation Senna/Docusate Sodium 2 tab 11/10/18 09:51 11/15/18 20:06 Senokot S PO 2 tab BID PRN Administration Constipation Sodium Chloride 10 ml 11/13/18 09:00 11/16/18 09:13 Flush - Normal Saline IVF 10 ml Q12HR CLAUS Administration Tramadol HCl 50 mg 11/10/18 13:40 11/13/18 19:39 Ultram PO 50 mg Q6H PRN Administration Moderate Pain (4-6) - Exam General Appearance: NAD, awake alert Eye: PERRL, anicteric sclera ENT: normocephalic atraumatic, no oropharyngeal lesions Neck: supple, symmetric, no JVD, no thyromegaly Heart: RRR, no gallops, no rubs, normal peripheral pulses Respiratory: CTAB, no wheezes, no rales, no ronchi Gastrointestinal: soft, non-tender, non-distended, normal bowel sounds Extremities: no cyanosis, 1+ LE edema Skin: normal turgor Skin - other findings: L upper chest wall with hematoma Neurological: cranial nerve grossly intact, no new deficit Hosp A/P (1) Atrial tachycardia Code(s): I47.1 - SUPRAVENTRICULAR TACHYCARDIA Status: Acute Plan: Current AV pacing in 60's, continue Amiodarone 200mg TID, hold anticoagulation due to large hematoma at PM/ICD insertion site (2) Symptomatic bradycardia Code(s): R00.1 - BRADYCARDIA, UNSPECIFIED Status: Acute (3) Diastolic CHF due to valvular disease Code(s): I38 - ENDOCARDITIS, VALVE UNSPECIFIED; I50.30 - UNSPECIFIED DIASTOLIC ( CONGESTIVE) HEART FAILURE Status: Acute (4) CKD (chronic kidney disease) stage 3, GFR 30-59 ml/min Status: Chronic (5) Physical deconditioning Code(s): R53.81 - OTHER MALAISE Status: Chronic Plan: PT/OT for mobilization, SNF pending - Plan PT/OT, social worker clinical, out of bed/ambulate, DVT proph w/SCDs Stable currently Monitor telemetry Continue Coreg Transition to po Amiodarone PT for mobilization CM for SNF options, likely [facility] 11/17/18 AM lab: H/H
[2018-11-16] MEDS: Amiodarone 200 MG TAB PO SCH ×2 (16:10→22:36)
[2018-11-16] MEDS: Insulin Regular 300 UNITS/3 ML VIAL SC PRN (18:18)
[2018-11-16] MEDS: Atorvastatin Calcium 40 MG TAB PO SCH (22:35)
[2018-11-16] MEDS: Pramipexole Di-HCl 1 MG TAB PO SCH (22:36)
[2018-11-16] MEDS: Baclofen 10 MG TAB PO SCH (22:36)
[2018-11-16] MEDS: Pravastatin Sodium 40 MG TAB PO SCH (22:36)
[2018-11-17] MEDS: HYDROcodone/Acetaminophen 5/325 mg Tablet PO PRN ×2 (03:39→15:01)
[2018-11-17] MEDS: Levothyroxine Sodium 75 MCG TAB PO SCH (06:13)
[2018-11-17] MEDS ORDERED: Apixaban 5 MG TAB PO SCH (09:00)
[2018-11-17] MEDS ORDERED: Aspirin 81 mg Enteric Coated Tablet PO SCH (09:00)
[2018-11-17] MEDS: traMADol HCl 50 MG TAB PO PRN (09:39)
[2018-11-17] MEDS: Gabapentin 300 MG CAP PO SCH (09:39)
[2018-11-17] MEDS: Cephalexin 250 MG CAP PO SCH ×2 (09:39→14:58)
[2018-11-17] MEDS: Amiodarone 200 MG TAB PO SCH ×2 (09:39→14:58)
[2018-11-17] MEDS: Furosemide 40 MG TAB PO SCH (09:40)
[2018-11-17] MEDS: Cyanocobalamin (Vitamin B-12) 1,000 MCG TAB PO SCH (09:42)
[2018-11-17] MEDS: Carvedilol 6.25 MG TAB PO SCH (09:44)
[2018-11-17] MEDS: Insulin Regular 300 UNITS/3 ML VIAL SC PRN (11:29)
[2018-11-17 12:25] VITALS: BP 121/58; TEMP 97.7
--- NOTE | 2018-11-18 01:59 | DIS ---
DATE OF ADMISSION: 11/10/2018 DATE OF DISCHARGE: 11/17/2018 DISCHARGE DIAGNOSES: 1. Atrial tachycardia with current AV pacing. 2. Symptomatic bradycardia. 3. Chronic combined systolic and diastolic congestive heart failure with ejection fraction of 25% to 30%. 4. Chronic kidney disease, stage 3. 5. Deconditioning. 6. Hypertension. 7. Hypothyroidism. 8. Chronic anticoagulation with Eliquis. CONSULTATIONS: 1. Dr. Ayon with Electrophysiology Service. 2. Dr. Worthy with Cardiology Service. PERTINENT LABORATORY DATA AND X-RAY FINDINGS: Creatinine ranged between 0.92 to 1.07. TSH 1.66. Total cholesterol 122, triglycerides 77, HDL 58, LDL 49. CBC showed a hemoglobin ranging between 10.9 to 11.8. Portable chest x-ray dated 11/10/2018, showed cardiomegaly with interstitial scarring. Bilateral anterior subcoracoid shoulder dislocations, chronic. CT of the brain without contrast dated 11/10/2018, showed no acute intracranial process. MRI of the brain dated 11/10/2018, showed a limited examination due to motion artifact. Mild chronic small-vessel ischemic changes noted with cerebral volume loss. Carotid Doppler study dated 11/11/2018, showed no hemodynamically significant stenosis in the context of atherosclerotic plaques. 2D transthoracic echocardiogram dated 11/10/2018, showed ejection fraction of 25% to 30%. Moderate left atrial enlargement. Moderate mitral regurgitation. HOSPITAL COURSE: The patient was initially admitted after presenting with difficulty with speech, facial heaviness and generalized weakness. The patient underwent extensive evaluation including neuroimaging to rule out CVA with negative studies as stated previously. The patient was evaluated due to severe generalized weakness, needing contact guard assistance for short distance ambulation. The patient also underwent a cardiac evaluation and evaluation of her AICD device. The patient underwent resynchronization of the implantable cardioverter-defibrillator on 11/13/2018 without complication. The patient with known history of systolic dysfunction with ejection fraction of 25% to 30% confirmed by 2D transthoracic echocardiogram. The patient underwent a successful biventricular ICD placement and initiated on anticoagulation with Eliquis. The patient did develop post implantation ICD placement, atrial fibrillation transiently, requiring amiodarone infusion. The patient transitioned to oral amiodarone and continued on anticoagulation with overall rate control and appropriately AV paced on telemetry monitoring. Due to the patient's overall deconditioned status and comorbid conditions, the patient was deemed appropriate candidate for ongoing skilled care and rehabilitation. The patient has been approved to transition to longterm care at [facility] in [place], [place] on 11/17/2018. I have examined the patient at the time of discharge and discussed followup instructions. The patient verbalized understanding and agreement, ready for discharge on 11/17/2018. DISCHARGE MEDICATIONS: 1. Amiodarone 200 mg p.o. t.i.d. until 11/24/2018, converting to 200 mg p.o. b.i.d. until 12/08/2018, converting to 200 mg p.o. daily. 2. Baclofen 10 mg p.o. at bedtime. 3. Carvedilol 6.25 mg p.o. b.i.d. 4. Zyrtec 10 mg p.o. daily. 5. Vitamin D3 5000 units p.o. daily. 6. Vitamin B12 5000 mcg sublingually daily. 7. Gabapentin 300 mg p.o. b.i.d. 8. Levothyroxine 75 mcg p.o. daily. 9. Protonix 40 mg p.o. at bedtime. 10. Pramipexole 1 mg p.o. at bedtime. 11. Eliquis 5 mg p.o. b.i.d. 12. Enteric-coated aspirin 81 mg p.o. daily. 13. Keflex 250 mg p.o. t.i.d. until 11/24/2018. 14. Lasix 40 mg p.o. daily. 15. Nystatin powder one application topically b.i.d. p.r.n. 16. Pravachol 40 mg p.o. at bedtime. 17. Tramadol 50 mg p.o. q.6 hours p.r.n. pain. FOLLOWUP: The patient may follow up with her primary care provider, Dr[facility] CONDITION ON DISCHARGE: Fair. ACTIVITY: Ad heather, rolling walker with contact guard assist and high fall risk precautions. Recommend ongoing aggressive physical and occupational therapy. DIET: Heart healthy with Ensure high-protein b.i.d. CODE STATUS: Full. DISPOSITION: Discharged to [facility], [place], [place], 11/17/2018. TIME SPENT: Total time preparing and coordinating discharge, 40 minutes. Job ID: [id number]
== END 2018-11-17 15:20 | DRG 227 ==
LOC: ERS 07:05 → OBSVTOIN 10:43 → 2SE 10:43
PROVIDERS: ADMIT Internal Medicine; ATTEND Internal Medicine
PROC: 0JH609Z Insertion of Cardiac Resynchronization Defibrillator Pulse Generator into Chest Subcutaneous Tissue and Fascia, Open Approach (ICD-10-PCS; principal; 2018-11-13)
PROC: 02HL3KZ Insertion of Defibrillator Lead into Left Ventricle, Percutaneous Approach (ICD-10-PCS; 2018-11-13)
PROC: 02HK3KZ Insertion of Defibrillator Lead into Right Ventricle, Percutaneous Approach (ICD-10-PCS; 2018-11-13)
PROC: 02H63KZ Insertion of Defibrillator Lead into Right Atrium, Percutaneous Approach (ICD-10-PCS; 2018-11-13)
DX: I49.5 Sick sinus syndrome (principal); I47.1 Supraventricular tachycardia; I50.42 Chronic combined systolic (congestive) and diastolic (congestive) heart failure; I13.0 Hypertensive heart and chronic kidney disease with heart failure and stage 1 through stage 4 chronic kidney disease, or unspecified chronic kidney disease; Z68.43 Body mass index [BMI] 50.0-59.9, adult; I48.92 Unspecified atrial flutter; I42.9 Cardiomyopathy, unspecified; E03.9 Hypothyroidism, unspecified; I34.0 Nonrheumatic mitral (valve) insufficiency; E78.5 Hyperlipidemia, unspecified; K21.9 Gastro-esophageal reflux disease without esophagitis; I44.7 Left bundle-branch block, unspecified; I25.10 Atherosclerotic heart disease of native coronary artery without angina pectoris; E66.01 Morbid (severe) obesity due to excess calories; E11.42 Type 2 diabetes mellitus with diabetic polyneuropathy; E11.22 Type 2 diabetes mellitus with diabetic chronic kidney disease; G47.33 Obstructive sleep apnea (adult) (pediatric); I48.91 Unspecified atrial fibrillation; Z98.84 Bariatric surgery status; Z79.899 Other long term (current) drug therapy; Z88.0 Allergy status to penicillin; Z88.5 Allergy status to narcotic agent; Z88.8 Allergy status to other drugs, medicaments and biological substances; Z91.048 Other nonmedicinal substance allergy status
CPT/HCPCS: 33225; 33249; 36005; 36415; 36416; 70450; 70551; 71045; 75820; 80053; 80061; 81003; 82550; 82565; 83735; 84100; 84443; 84484; 85014; 85018; 85025; 85049; 85610; 85730; 93005; 93010; 93306; 93641; 93880; 96360; A4353; C1777; C1882; C1898; C1900; J0282; J0690; J1580; J1650; J1815; J1956; J2001; J3370; J3490; J7070; Q9967

== ENCOUNTER 2019-11-30 16:38 | Inpatient (IN) | payer MEDICARE, OTHER ==
[2019-11-30] MEDS ORDERED: Dexamethasone 10 MG/ML VIAL ONE (16:55)
[2019-11-30] MEDS ORDERED: Magnesium 2 GM/50 ML BAG (IN WATER) ONE (16:55)
[2019-11-30] MEDS ORDERED: Albuterol Sulfate 2.5 mg/3 ml Neb ONE (17:02)
--- NOTE | 2019-11-30 17:22 | RAD ---
Exam: Chest one view HISTORY:Dyspnea. Difficulty breathing Comparison: 11/14/2018 FINDINGS: Pacing device: Stable right-sided defibrillator. Cardiac silhouette:Cardiomegaly. Aorta: Atherosclerotic Pulmonary vessels: Prominent Costophrenic angles: Pleural and parenchymal changes in the left lung base with obscuration the left heart border and left hemidiaphragm LUNGS: Parenchymal changes left lung base. Additional patchy interstitial opacities throughout the essence ng parenchyma Pneumothorax: None Osseous abnormalities: None IMPRESSION: Congestive heart failure. Superimposed pneumonia or aspiration left lung base cannot be e xcluded. Continued surveillance is recommended.
[2019-11-30 17:28] LABS: Hemoglobin 8.3 g/dL (12.0-16.0); Mean Corpuscular Hemoglobin 23.5 pg (27.0-31.0); Mean Corpuscular Volume 81.1 fL (78.0-98.0); Mean Platelet Volume 8.3 fL (7.4-10.4); Platelet Count 354 thou/uL (130-400); RBC Distribution Width 18.2 % (11.5-14.5); Red Blood Cell (RBC) Count 3.54 mill/uL (4.20-5.40); White Blood Cell (WBC) Count 16.1 thou/uL (4.8-10.8)
[2019-11-30 17:43] LABS: ALT (SGPT) 17 U/L (8-55); AST (SGOT) 23 U/L (5-34); Albumin 3.5 g/dL (3.4-4.8); Alkaline Phosphatase 100 U/L (40-110); Anion Gap 17 mmol/L (10-20); BUN (Urea Nitrogen) 45 mg/dL (9.8-20.1); Bilirubin, Total 0.7 mg/dL (0.2-1.2); CK (CPK) 135 U/L (29-168); Calc. Creatinine Clearance 0 mL/min (70-130); Calcium 8.9 mg/dL (7.8-10.44); Carbon Dioxide 29 mmol/L (23-31); Chloride 100 mmol/L (98-107); Estimated GFR-MDRD 32; Glucose 125 mg/dL (83-110); Lipase 6 U/L (8-78); Potassium 4.4 mmol/L (3.5-5.1); Protein, Total 7.5 g/dL (6.0-8.3); Sodium 142 mmol/L (136-145)
[2019-11-30 17:48] LABS: #Lymphocytes 0.7 thou/uL (1.20-3.40); #Monocytes 1.3 thou/uL (0.11-0.59); #Neutrophils 14.1 thou/uL (1.40-6.50); %Basophils 0.1 % (0.0-1.0); %Eosinophils 0.2 % (0.0-10.0); %Lymphocytes 4.4 % (21.0-51.0); %Monocytes 7.9 % (0.0-10.0); %Neutrophils 87.5 % (42.0-75.0); Elliptocytes SLIGHT = 2-5 cells (100X) (0-1/hpf); Hypochromia SLIGHT = 6-15 cells (100X) (0-5/hpf); MDiff Complete? YES; Platelet Morphology Comment Appears Adequate; Polychromasia SLIGHT = 2-3 cells (100X) (0-2/hpf); Tear Drops SLIGHT = 2-5 cells (100X) (0-1/hpf)
[2019-11-30] MEDS ORDERED: Vancomycin 1 GM/200 ML BAG ONE (19:48)
--- NOTE | 2019-11-30 20:19 | PDOC.HHP ---
Hospitalist HPI - History of Present Illness Shortness of breath History of Present Illness: 69-year-old woman with a history of chronic atrial fibrillation on Eliquis anticoagulation, status post pacemaker, history of congestive heart failure, presented to the emergency department with a complaint of progressive shortness of breath for about 4 days duration. Symptoms associated with nonproductive cough. Patient denied any chest pain no fever or chills. Shortness of breath progressed from shortness of breath with exertion to shortness of breath at rest and even with speaking. Patient does not use oxygen at home. Chest x-ray in the ED shows opacification of the left lower lobe which may suggest pleural effusion versus pneumonia. Patient also has leukocytosis. She has no fever or tachycardia and does not meet criteria for sepsis. Noted she has a hemoglobin of 8. Patient noted to be hypoxic with oxygen saturation of 85% on room air. ED Course: She was given bronchodilator treatment, IV Lasix and IV antibiotics. Her hypoxia did not improve. Patient is admitted for further management of pneumonia versus CHF exacerbation. Hospitalist ROS - Review of Systems Constitutional: reports: other Other: Except as documented all other systems reviewed and negative. Hospitalist History - Past Medical History Cardiac: reports: AFIB, CAD, CHF, HTN Heme/Onc: reports: Anemia NOS Renal/: reports: Chronic renal failure Endocrine: reports: Hypothyroidism - Past Surgical History Other Surgical History: Gastric bypass surgery, right foot surgery, tonsillectomy, right lower extremity stent placement, bilateral shoulder joint injection, hysterectomy, status post pacemaker. - Family History Family History: reports: diabetes mellitus (Brother) - Social History Smoking Status: Never smoker Alcohol: reports: None Drugs: reports: none Living Situation: With Family - Exam General Appearance: awake alert Eye: PERRL, anicteric sclera ENT: moist mucosa Neck: supple, no JVD Heart: no murmur, irregular Respiratory - other findings: Breath sounds diminished on the left lower region, mild bibasilar crackles. Gastrointestinal: soft, non-tender, non-distended, normal bowel sounds Extremities - other findings: 1+ bilateral lower extremity pitting edema. Skin - other findings: Bilateral lower extremity venous stasis dermatitis and hemosiderin staining Neurological: no weakness, no focal deficits Psychiatric: normal affect, normal behavior, A&O x 3 Hospitalist Results - Labs Result Diagrams: 11/30/19 17:09 11/30/19 17:09 Lab results: WBC 16.1 thou/uL (4.8-10.8) H 11/30/19 17:09 Hgb 8.3 g/dL (12.0-16.0) L 11/30/19 17:09 Hct 28.7 % (36.0-47.0) L 11/30/19 17:09 MCV 81.1 fL (78.0-98.0) 11/30/19 17:09 Plt Count 354 thou/uL (130-400) 11/30/19 17:09 Neutrophils % 87.5 % (42.0-75.0) H 11/30/19 17:09 Sodium 142 mmol/L (136-145) 11/30/19 17:09 Potassium 4.4 mmol/L (3.5-5.1) 11/30/19 17:09 Chloride 100 mmol/L (98-107) 11/30/19 17:09 Carbon Dioxide 29 mmol/L (23-31) 11/30/19 17:09 BUN 45 mg/dL (9.8-20.1) H 11/30/19 17:09 Creatinine 1.61 mg/dL (0.6-1.1) H 11/30/19 17:09 Glucose 125 mg/dL (83-110) H 11/30/19 17:09 Lactic Acid 0.4 mmol/L (0.5-2.2) L 11/30/19 19:37 Calcium 8.9 mg/dL (7.8-10.44) 11/30/19 17:09 Total Bilirubin 0.7 mg/dL (0.2-1.2) 11/30/19 17:09 AST 23 U/L (5-34) 11/30/19 17:09 ALT 17 U/L (8-55) 11/30/19 17:09 Alkaline Phosphatase 100 U/L (40-110) 11/30/19 17:09 Creatine Kinase 135 U/L (29-168) 11/30/19 17:09 Troponin I 0.027 ng/mL (< 0.028) 11/30/19 17:09 B-Natriuretic Peptide 257.1 pg/mL (0-100) H 11/30/19 17:09 Serum Total Protein 7.5 g/dL (6.0-8.3) 11/30/19 17:09 Albumin 3.5 g/dL (3.4-4.8) 11/30/19 17:09 Lipase 6 U/L (8-78) L 11/30/19 17:09 - Radiology Interpretation Chest x-ray Additional Comment: Opacity in the left lower lobe which may suggest pneumonia versus pleural effusion. Superimposed vascular congestion. Hospitalist H&P A/P - Problem (1) Acute on chronic systolic CHF (congestive heart failure) Code(s): I50.23 - ACUTE ON CHRONIC SYSTOLIC (CONGESTIVE) HEART FAILURE Status: Acute (2) Pneumonia Code(s): J18.9 - PNEUMONIA, UNSPECIFIED ORGANISM Status: Acute (3) Anemia Code(s): D64.9 - ANEMIA, UNSPECIFIED Status: Acute (4) Chronic atrial fibrillation Code(s): I48.20 - CHRONIC ATRIAL FIBRILLATION, UNSPECIFIED Status: Acute (5) Bilateral lower extremity edema Code(s): R60.0 - LOCALIZED EDEMA Status: Acute (6) CAD (coronary artery disease) Code(s): I25.10 - ATHSCL HEART DISEASE OF [place] CORONARY ARTERY W/O ANG PCTRS Status: Chronic (7) CKD (chronic kidney disease) stage 3, GFR 30-59 ml/min Status: Chronic (8) Hypothyroidism Code(s): E03.9 - HYPOTHYROIDISM, UNSPECIFIED Status: Chronic (9) Morbid obesity Code(s): E66.01 - MORBID (SEVERE) OBESITY DUE TO EXCESS CALORIES Status: Chronic (10) JONATHAN (obstructive sleep apnea) Code(s): G47.33 - OBSTRUCTIVE SLEEP APNEA (ADULT) (PEDIATRIC) Status: Chronic - Plan Plan: Admit to medical floor with telemetry. Trend troponin. Will treat CHF exacerbation with IV Lasix 40 mg every 12. Monitor renal function on IV Lasix given CKD 3. Obtain echocardiogram. Most recent echocardiogram was about 1 year ago. Treating pneumonia with IV Levaquin. Continue home medications for chronic atrial fibrillation, coronary artery disease. Bronchodilators. Supplemental oxygen Monitor intake and output, daily weight. Chest physiotherapy. Monitor hemoglobin daily and transfuse PRN for hemoglobin less than 8.
[2019-11-30 21:09] LABS: Troponin I Less than 0.010 ng/mL (< 0.028)
[2019-12-01 00:17] LABS: Troponin I Less than 0.010 ng/mL (< 0.028)
[2019-12-01] MEDS: Furosemide 40 MG/4 ML VIAL SLOW IVP SCH ×3 (06:34→13:09)
[2019-12-01 07:27] LABS: #Lymphocytes 0.4 thou/uL (1.20-3.40); #Monocytes 0.8 thou/uL (0.11-0.59); #Neutrophils 15.1 thou/uL (1.40-6.50); %Eosinophils 0.1 % (0.0-10.0); %Lymphocytes 2.2 % (21.0-51.0); %Monocytes 4.9 % (0.0-10.0); %Neutrophils 92.7 % (42.0-75.0); Hemoglobin 7.3 g/dL (12.0-16.0); Mean Corpuscular HGB CONC 28.7 g/dL (32.0-36.0); Mean Corpuscular Hemoglobin 24.1 pg (27.0-31.0); Mean Corpuscular Volume 83.9 fL (78.0-98.0); Mean Platelet Volume 7.7 fL (7.4-10.4); Platelet Count 368 thou/uL (130-400); Red Blood Cell (RBC) Count 3.05 mill/uL (4.20-5.40); White Blood Cell (WBC) Count 16.3 thou/uL (4.8-10.8)
[2019-12-01 07:35] LABS: Anion Gap 15 mmol/L (10-20); BUN (Urea Nitrogen) 49 mg/dL (9.8-20.1); Calc. Creatinine Clearance 64 mL/min (70-130); Calcium 8.7 mg/dL (7.8-10.44); Carbon Dioxide 30 mmol/L (23-31); Chloride 101 mmol/L (98-107); Estimated GFR-MDRD 35; Glucose 142 mg/dL (83-110); Potassium 4.4 mmol/L (3.5-5.1); Sodium 142 mmol/L (136-145)
[2019-12-01 07:59] LABS: Hypochromia SLIGHT = 6-15 cells (100X) (0-5/hpf); MDiff Complete? YES; Platelet Morphology Comment Appears Adequate; Polychromasia SLIGHT = 2-3 cells (100X) (0-2/hpf)
[2019-12-01] MEDS: Acetaminophen 325 MG TAB PO PRN ×2 (09:42→14:33)
[2019-12-01 13:16] LABS: SARS-CoV-2 MS2 Positive; SARS-CoV-2 N Gene Negative; SARS-CoV-2 S Gene Negative; SARS-CoV-2 by NAA Not Detected (NotDetected); SARS-CoV-2 orf1ab Negative
[2019-12-01] MEDS ORDERED: Gabapentin 300 MG CAP PO SCH ×2 (13:45→21:00)
[2019-12-01] MEDS ORDERED: Metoprolol Tartrate 5 MG/5 ML VIAL IVP PRN (14:42)
[2019-12-01] MEDS ORDERED: Metoprolol Tartrate 25 MG TAB PO SCH (17:45)
--- NOTE | 2019-12-01 18:57 | PDOC.HOSPP ---
- Subjective Encounter Date: 12/01/19 Encounter Time: 08:00 Subjective: The patient states her breathing has improved. She is not sure if the lasix helped or the oxygen helped. She reports chronic pain in her legs and doesn't ambulate much because of it. She takes eliquis daily for atrial fibrillation She has a chronic mild cough Anemia - patient states her baseline hemoglobin is around 8. She reports a history of bleeding ulcers in the past. She has not noticed any black or dark stools She reports a lot of pain in bilateral hips and legs. The patient's heart rate went in to 150's with afib with RVR. She was given IV metoprolol with improvement. Heart rate stayed at 120, given another oral metoprolol - Objective Vital Signs & Weight: Vital Signs (12 hours) Temp Pulse Pulse Pulse Pulse Resp BP 12/01/19 18:17 97.8 F 116 H 18 12/01/19 17:50 97.6 F 104 H 18 12/01/19 15:00 97.8 F 130 H 18 12/01/19 11:34 97.4 F L 76 18 12/01/19 10:37 81 75 144/65 H 12/01/19 07:59 97.8 F 73 19 BP BP BP Pulse Ox Pulse Ox Pulse Ox 12/01/19 18:17 128/70 97 12/01/19 17:50 156/62 H 96 12/01/19 15:00 139/63 96 12/01/19 11:34 136/60 97 12/01/19 10:37 148/66 H 97 94 L 12/01/19 07:59 139/63 97 Weight Admit Weight 258 lb Weight 258 lb I&O: 11/30/19 12/01/19 12/02/19 06:59 06:59 06:59 Intake Total 0 830 Output Total 0 400 Balance 0 430 Result Diagrams: 12/01/19 06:58 12/01/19 06:58 Additional Labs: Accuchecks 12/01/19 12/01/19 16:44 10:53 POC Glucose 152 H 137 H Hospitalist ROS - Review of Systems Constitutional: denies: fever, chills - Medication Medications: Active Medications Generic Name Dose Route Start Last Admin Trade Name Freq PRN Reason Stop Dose Admin Acetaminophen 650 mg 11/30/19 20:10 12/01/19 14:33 Acetaminophen 325 Mg Tab PO 650 mg Q4H PRN Administration Headache/Fever/Mild Pain (1-3) Furosemide 40 mg 12/01/19 06:00 12/01/19 13:09 Furosemide 40 Mg/4 Ml Vial SLOW IVP 12/02/19 06:01 40 mg 0600,1400 CLAUS Administration Metoprolol Tartrate 5 mg 12/01/19 14:42 12/01/19 14:51 Metoprolol Tartrate 5 Mg/5 Ml Vial IVP 12/02/19 14:43 5 mg ONE PRN Administration To Control Heart Rate Metoprolol Tartrate 25 mg 12/01/19 17:45 12/01/19 18:10 Metoprolol Tartrate 25 Mg Tab PO 12/01/19 19:45 25 mg NOW CLAUS Administration - Exam General Appearance: NAD, awake alert General - other findings: morbidly obese Eye: PERRL, anicteric sclera ENT: normocephalic atraumatic, no oropharyngeal lesions Neck: no JVD Heart: RRR, no murmur, no gallops, no rubs Respiratory: CTAB, no wheezes, no rales, no ronchi Gastrointestinal: soft, non-tender, non-distended, normal bowel sounds Extremities: no cyanosis, no clubbing, 2+ LE edema Extremities - other findings: bilateral hip tenderness Skin: normal turgor, no lesions, no rashes Skin - other findings: dry skin Neurological: cranial nerve grossly intact, normal sensation to touch, no focal deficits, no new deficit Musculoskeletal: normal tone, normal strength, no muscle wasting Hosp A/P - Plan ECHO: EF 40-45% This is a 69 year old female with chronic atrial fibrillation who presented with worsening shortness of breath for four days, nonproductive cough Acute hypoxic respiratory failure secondary to pneumonia vs CHF - continue IV diuretic - continue to wean oxygen as tolerated - continue IV levaquin, appears to have possible left lower lobe infiltrate Anemia - Hb dropping to 7.3. Will transfuse one unit of blood. Repeat CBC after - check CT abdomen EUSEBIO - creatinine improved to 1.48 Hypothyroidism - continue levothyroxine Atrial fibrillation - resume home coreg - given IV and oral metoprolol - resume eliquis if no bleeding on CT abdomen Chronic leg pain - continue gabapentin - continue home tramadol if patient takes this
--- NOTE | 2019-12-01 19:03 | CT ---
CT ABDOMEN AND PELVIS WITHOUT IV CONTRAST: 12/01/19 INDICATION: History of bleeding ulcers and gastric bypass with anemia. COMPARISON: None. FINDINGS: There is dense consolidation of the left lower lobe with a loculated left sided pleural effusion. The re is mild subsegmental volume loss in the right lower lobe. There is cardiomegaly. There is a small hiatal hernia. There is postprocedural change of a gastric bypass. Cholecystectomy is present within the right upper quadrant. Unopacified liver, spleen, adrenal glands, kidneys reveal no acute abnormality. There is some mild fa tty replacement of the pancreas. There are moderate calcifications in the abdominopelvic vasculature. Small bowel is of normal caliber. There is a moderate amount of retained stool within the colon. There is moderate distention of the bl adder. There is diffuse osteopenia. There is scattered degenerative and osteoarthritic change. There is retrolisthesis of L1 on L2. There is anterolisthesis of L4 on L5. There is anterolisthesis o f L5 on S1. There is dextroscoliosis of the thoracolumbar spine. IMPRESSION: 1. Moderate distention of the bladder. 2. Left lower lobe consolidation and loculated left pleural effusion. 3. Postprocedural change of gastric bypass. 4. Small hiatal hernia. 5. Cholecystectomy. 6. Other chronic findings as above. POS: [facility]
[2019-12-01] MEDS ORDERED: Acetaminophen 500 MG TAB PO PRN (19:05)
[2019-12-01] MEDS ORDERED: Levothyroxine Sodium 100 MCG TAB PO SCH (19:15)
[2019-12-01] MEDS: Gabapentin 300 MG CAP PO SCH (22:00)
[2019-12-01] MEDS: Atorvastatin Calcium 10 MG TAB PO SCH (22:00)
[2019-12-01] MEDS: Pramipexole Di-HCl 1 MG TAB PO SCH (22:00)
[2019-12-01] MEDS: Apixaban 5 MG TAB PO SCH (22:00)
[2019-12-02] MEDS: Nystatin Powder 15 GM BOT TOP SCH ×3 (01:13→21:16)
[2019-12-02 05:02] LABS: Hemoglobin 8.1 g/dL (12.0-16.0); Mean Corpuscular HGB CONC 28.7 g/dL (32.0-36.0); Mean Corpuscular Hemoglobin 24.3 pg (27.0-31.0); Mean Corpuscular Volume 84.8 fL (78.0-98.0); Mean Platelet Volume 7.7 fL (7.4-10.4); Platelet Count 378 thou/uL (130-400); RBC Distribution Width 17.7 % (11.5-14.5); Red Blood Cell (RBC) Count 3.35 mill/uL (4.20-5.40); White Blood Cell (WBC) Count 11.4 thou/uL (4.8-10.8)
[2019-12-02 05:25] LABS: Anion Gap 13 mmol/L (10-20); BUN (Urea Nitrogen) 46 mg/dL (9.8-20.1); Calc. Creatinine Clearance 75 mL/min (70-130); Calcium 8.5 mg/dL (7.8-10.44); Carbon Dioxide 33 mmol/L (23-31); Chloride 101 mmol/L (98-107); Estimated GFR-MDRD 41; Glucose 132 mg/dL (83-110); Potassium 4.1 mmol/L (3.5-5.1); Sodium 143 mmol/L (136-145)
[2019-12-02] MEDS ORDERED: Carvedilol 6.25 MG TAB PO SCH (06:00)
[2019-12-02] MEDS: Levothyroxine Sodium 100 MCG TAB PO SCH (06:30)
[2019-12-02] MEDS: Furosemide 40 MG/4 ML VIAL SLOW IVP SCH (06:30)
[2019-12-02] MEDS: Carvedilol 6.25 MG TAB PO SCH ×2 (08:34→21:14)
[2019-12-02] MEDS: Apixaban 5 MG TAB PO SCH ×2 (08:34→21:13)
[2019-12-02] MEDS: Cyanocobalamin (Vitamin B-12) 1,000 MCG TAB PO SCH (08:34)
[2019-12-02] MEDS: Gabapentin 300 MG CAP PO SCH ×2 (08:35→21:14)
[2019-12-02] MEDS: traMADol HCl 50 MG TAB PO PRN ×3 (08:36→21:14)
[2019-12-02] MEDS ORDERED: Furosemide 20 MG/2 ML VIAL SLOW IVP SCH (09:30)
--- NOTE | 2019-12-02 16:25 | PDOC.HOSPP ---
- Subjective Encounter Date: 12/02/19 Encounter Time: 08:00 Subjective: The patient reports improvement in her energy levels. SHe did cough up some orange sputum today. She has no chest pain. She has lot of pain in both legs, which is chronic The patient ambulated and was hypoxic to 80% on room air, high 80's on 1L. She is not on oxygen at home - Objective Vital Signs & Weight: Vital Signs (12 hours) Temp Pulse Pulse Pulse Resp BP BP 12/02/19 15:05 97.7 F 76 16 12/02/19 11:07 98.3 F 68 16 12/02/19 10:55 72 64 145/63 H 148/69 H 12/02/19 07:30 97.5 F L 64 14 BP Pulse Ox Pulse Ox Pulse Ox 12/02/19 15:05 129/61 96 12/02/19 11:07 148/69 H 96 12/02/19 10:55 93 L 97 12/02/19 07:30 139/64 98 Weight Admit Weight 258 lb Weight 257 lb I&O: 12/01/19 12/02/19 12/03/19 06:59 06:59 06:59 Intake Total 0 1880 Output Total 0 750 Balance 0 1130 Result Diagrams: 12/02/19 04:06 12/02/19 04:06 Additional Labs: Accuchecks 12/02/19 12/02/19 12/01/19 10:56 06:53 20:31 POC Glucose 140 H 119 H 165 H 12/01/19 16:44 POC Glucose 152 H Hospitalist ROS - Review of Systems Constitutional: denies: fever, chills - Medication Medications: Active Medications Generic Name Dose Route Start Last Admin Trade Name Freq PRN Reason Stop Dose Admin Acetaminophen 650 mg 11/30/19 20:10 12/01/19 14:33 Acetaminophen 325 Mg Tab PO 650 mg Q4H PRN Administration Headache/Fever Apixaban 5 mg 12/01/19 21:00 12/02/19 08:34 Apixaban 5 Mg Tab PO 5 mg BID CLAUS Administration Atorvastatin Calcium 10 mg 12/01/19 21:00 12/01/19 22:00 Atorvastatin Calcium 10 Mg Tab PO 10 mg HS CLAUS Administration Carvedilol 6.25 mg 12/02/19 09:00 12/02/19 08:34 Carvedilol 6.25 Mg Tab PO 6.25 mg BID CLAUS Administration Cyanocobalamin 5,000 mcg 12/02/19 09:00 12/02/19 08:34 Cyanocobalamin (Vitamin B-12) 1,000 Mcg Tab PO 5,000 mcg DAILY CLAUS Administration Gabapentin 300 mg 12/01/19 21:00 12/02/19 08:35 Gabapentin 300 Mg Cap PO 300 mg BID CLAUS Administration Levofloxacin 750 mg/ Device 150 mls @ 100 mls/hr 12/01/19 20:00 12/01/19 20:57 IVPB 150 mls 2000 CLAUS Administration Levothyroxine Sodium 100 mcg 12/02/19 06:00 12/02/19 06:30 Levothyroxine Sodium 100 Mcg Tab PO 100 mcg 0600 CLAUS Administration Nystatin 0 gm 12/01/19 21:00 12/02/19 08:35 Nystatin Powder 15 Gm Bot TOP 1 applic BID CLAUS Administration Pantoprazole Sodium 40 mg 12/01/19 21:00 12/01/19 22:00 Pantoprazole 40 Mg Tab PO 40 mg HS CLAUS Administration Pramipexole Dihydrochloride 1 mg 12/01/19 21:00 12/01/19 22:00 Pramipexole Di-Hcl 1 Mg Tab PO 1 mg HS CLAUS Administration Tramadol HCl 50 mg 12/01/19 19:05 12/02/19 15:58 Tramadol Hcl 50 Mg Tab PO 50 mg Q6H PRN Administration Moderate Pain (4-6) - Exam General Appearance: NAD, awake alert Eye: PERRL, anicteric sclera ENT: normocephalic atraumatic, no oropharyngeal lesions Neck: no JVD Heart: RRR, no murmur, no gallops, no rubs Respiratory: CTAB, no rales, no ronchi Respiratory - other findings: slight wheezing Gastrointestinal: soft, non-tender, non-distended, normal bowel sounds Extremities: no cyanosis, no clubbing, 2+ LE edema Extremities - other findings: nonpitting Skin: normal turgor, no lesions, no rashes Neurological: cranial nerve grossly intact, normal sensation to touch, no focal deficits, no new deficit Musculoskeletal: normal tone, normal strength, no muscle wasting Psychiatric: normal affect, normal behavior, A&O x 3 Hosp A/P - Plan ECHO: EF 40-45% CT abdomen: left lower lobe consolidation and loculated left pleural effusion. Retained stool in colon. Distension of bladder This is a 69 year old female with chronic atrial fibrillation who presented with worsening shortness of breath for four days, nonproductive cough Acute hypoxic respiratory failure secondary to pneumonia vs CHF - was on IV diuretic. CT abdomen showed left sided consolidation with loculated effusion .Will give additional lasix dose since she got transfused yesterday - continue IV levaquin. Check sputum culture - she is still hypoxic on ambulation, wean oxygen to 92% - PT is recommending rehab Anemia - improved, with hemoglobin 9. She received 1 unit pRBC 12/01. EUSEBIO - creatinine improved to 1.27. JONATHAN - continue home CPAP Hypothyroidism - continue levothyroxine Atrial fibrillation - continue coreg. Continue eliquis Chronic leg pain - continue gabapentin - continue home tramadol if patient takes this - will check bilateral dopplers due to leg swelling
[2019-12-02 17:46] LABS: Hemoglobin A1c 5.7 % (4.0-6.0)
[2019-12-02] MEDS: Pramipexole Di-HCl 1 MG TAB PO SCH (21:13)
[2019-12-02] MEDS: Atorvastatin Calcium 10 MG TAB PO SCH (21:13)
[2019-12-02] MEDS: Senokot S 8.6-50 MG TAB PO SCH (21:13)
[2019-12-03 04:43] LABS: Anion Gap 15 mmol/L (10-20); BUN (Urea Nitrogen) 32 mg/dL (9.8-20.1); Calc. Creatinine Clearance 103 mL/min (70-130); Carbon Dioxide 32 mmol/L (23-31); Chloride 98 mmol/L (98-107); Estimated GFR-MDRD 60; Glucose 125 mg/dL (83-110); Potassium 4.9 mmol/L (3.5-5.1); Sodium 140 mmol/L (136-145)
[2019-12-03] MEDS: traMADol HCl 50 MG TAB PO PRN ×2 (05:24→11:12)
[2019-12-03] MEDS: Levothyroxine Sodium 100 MCG TAB PO SCH (05:25)
--- NOTE | 2019-12-03 07:30 | ULT ---
BILATERAL LOWER EXTREMITY VENOUS ULTRASOUND: Date: 12/03/2019 COMPARISON: 02/02/2017. HISTORY: Bilateral lower extremity pain and edema. TECHNIQUE: Multiplanar Shaffer scale and color Doppler images were obtained in a bilateral lower extremity venous u ltrasound. Spectral analysis of the Doppler waveforms were performed. FINDINGS: Bilateral common femoral veins, profunda femoral veins, superficial femoral veins, and popliteal vein s are normal in appearance without visible thrombus. These vessels demonstrate normal compression, fl ow, and augmentation. The posterior tibial veins and greater saphenous veins are also patent. IMPRESSION: No evidence of deep venous thrombosis. POS: [facility]
[2019-12-03] MEDS: Apixaban 5 MG TAB PO SCH ×2 (09:06→23:05)
[2019-12-03] MEDS: Nystatin Powder 15 GM BOT TOP SCH ×2 (09:06→23:06)
[2019-12-03] MEDS: Carvedilol 6.25 MG TAB PO SCH (09:06)
[2019-12-03] MEDS: Gabapentin 300 MG CAP PO SCH ×2 (09:06→23:05)
[2019-12-03] MEDS: Cyanocobalamin (Vitamin B-12) 1,000 MCG TAB PO SCH (09:07)
[2019-12-03] MEDS: Senokot S 8.6-50 MG TAB PO SCH ×2 (09:07→23:06)
[2019-12-03] MEDS ORDERED: Carvedilol 6.25 MG TAB PO SCH (16:45)
[2019-12-03 17:27] LABS: Actual Bicarbonate (HCO3a) 46.7 mEq/L (22-28); Base Excess (BEa) 14.6 mEq/L (-2.0 to +3.0); Calcium, Ionized (arterial) 1.23 mmol/L (1.12-1.30); Carboxyhemoglobin (COHb) 1.6 gm% (0.0-3.0); Hemoglobin (Hb) 10.2 g/dL (12.0-16.0); O2 Tension (PaO2), arterial 86.1 mmHg (> 70.0); Potassium - ABG Lab 4.45 mmol/L (3.70-5.30)
--- NOTE | 2019-12-03 17:37 | RAD ---
PORTABLE CHEST: 12/03/19 HISTORY: Hypoxia. COMPARISON: 11/30/19 chest x-ray. Left hemithorax is completely opacified on this examination. The patient is somewhat rotated. It is d ifficult to assess for shift of mediastinal structures. Right lung is grossly clear. IMPRESSION: Completely opacified left hemithorax probably related to effusion with atelectasis. POS: [facility]
[2019-12-03 17:48] LABS: Hemoglobin 9.5 g/dL (12.0-16.0); Mean Corpuscular HGB CONC 27.7 g/dL (32.0-36.0); Mean Corpuscular Hemoglobin 24.3 pg (27.0-31.0); Mean Corpuscular Volume 87.7 fL (78.0-98.0); Mean Platelet Volume 7.4 fL (7.4-10.4); Platelet Count 357 thou/uL (130-400); RBC Distribution Width 17.8 % (11.5-14.5); Red Blood Cell (RBC) Count 3.92 mill/uL (4.20-5.40); White Blood Cell (WBC) Count 10.7 thou/uL (4.8-10.8)
[2019-12-03 17:55] LABS: CO2 Tension 126.1 mmHg (35.0-45.0); Puncture Site RRAD; pH, Arterial 7.19 (7.35-7.45)
--- NOTE | 2019-12-03 18:16 | PDOC.HOSPP ---
- Subjective Encounter Date: 12/03/19 Encounter Time: 08:00 Subjective: The patient denied significant short of breath this am. She complains of chronic pain in her shoulders and legs. According to the son, the patient has chronic rotator cuff injury on both shoulders. She did not want to go to rehab, but after discussion with the patient she was more agreeable. She reported occasional dry cough. No chest pain Patient reports history of JONATHAN and used BIPAP at home but did not have all the equipment set up Patient's heart rate was better controlled this am after resuming coreg. Arou nd 5:00 pm patient's heart rate increased again . Coreg 12.5 mg was given with improvement in heart rate. EKG shows left bundle branch block. Her oxygen saturation dropped to 80% on 3L. Patient agrees to being a full code if she fails BIPAP - Objective Vital Signs & Weight: Vital Signs (12 hours) Temp Pulse Pulse Resp BP BP Pulse Ox 12/03/19 15:25 97.5 F L 109 H 18 123/97 H 90 L 12/03/19 13:55 83 133/69 12/03/19 11:24 97.9 F 62 16 178/86 H 90 L 12/03/19 07:17 97.7 F 69 16 138/65 90 L Pulse Ox Pulse Ox Pulse Ox 12/03/19 15:25 12/03/19 13:55 88 L 90 L 89 L 12/03/19 11:24 12/03/19 07:17 Weight Admit Weight 258 lb Weight 250 lb 1.6 oz I&O: 12/02/19 12/03/19 12/04/19 06:59 06:59 06:59 Intake Total 1880 1000 480 Output Total 750 1625 Balance 1130 -625 480 Result Diagrams: 12/03/19 17:32 12/03/19 04:08 Additional Labs: Accuchecks 12/03/19 12/03/19 12/02/19 11:05 06:04 20:21 POC Glucose 129 H 100 162 H Hospitalist ROS - Review of Systems Constitutional: denies: fever, chills - Medication Medications: Active Medications Generic Name Dose Route Start Last Admin Trade Name Freq PRN Reason Stop Dose Admin Acetaminophen 650 mg 11/30/19 20:10 12/01/19 14:33 Acetaminophen 325 Mg Tab PO 650 mg Q4H PRN Administration Headache/Fever Apixaban 5 mg 12/01/19 21:00 12/03/19 09:06 Apixaban 5 Mg Tab PO 5 mg BID CLAUS Administration Atorvastatin Calcium 10 mg 12/01/19 21:00 12/02/19 21:13 Atorvastatin Calcium 10 Mg Tab PO 10 mg HS CLAUS Administration Carvedilol 12.5 mg 12/03/19 16:45 12/03/19 16:59 Carvedilol 6.25 Mg Tab PO 12/03/19 18:45 12.5 mg NOW CLAUS Administration Cyanocobalamin 5,000 mcg 12/02/19 09:00 12/03/19 09:07 Cyanocobalamin (Vitamin B-12) 1,000 Mcg Tab PO 5,000 mcg DAILY CLAUS Administration Gabapentin 300 mg 12/01/19 21:00 12/03/19 09:06 Gabapentin 300 Mg Cap PO 300 mg BID CLAUS Administration Levothyroxine Sodium 100 mcg 12/02/19 06:00 12/03/19 05:25 Levothyroxine Sodium 100 Mcg Tab PO 100 mcg 0600 CLAUS Administration Nystatin 0 gm 12/01/19 21:00 12/03/19 09:06 Nystatin Powder 15 Gm Bot TOP 1 applic BID CLAUS Administration Pantoprazole Sodium 40 mg 12/01/19 21:00 12/02/19 21:14 Pantoprazole 40 Mg Tab PO 40 mg HS CLAUS Administration Pramipexole Dihydrochloride 1 mg 12/01/19 21:00 12/02/19 21:13 Pramipexole Di-Hcl 1 Mg Tab PO 1 mg HS CLAUS Administration Senna/Docusate Sodium 1 tab 12/02/19 21:00 12/03/19 09:07 Senokot S 8.6-50 Mg Tab PO 1 tab BID CLAUS Administration Tramadol HCl 50 mg 12/01/19 19:05 12/03/19 11:12 Tramadol Hcl 50 Mg Tab PO 50 mg Q6H PRN Administration Moderate Pain (4-6) - Exam General Appearance: NAD, awake alert Eye: PERRL, anicteric sclera ENT: normocephalic atraumatic, no oropharyngeal lesions Neck: no JVD Heart: RRR, no murmur, no gallops, no rubs Respiratory: CTAB, no wheezes, no ronchi Gastrointestinal: soft, non-tender, non-distended, normal bowel sounds Extremities: no cyanosis, no clubbing, no edema Skin: normal turgor, no lesions, no rashes Neurological: cranial nerve grossly intact, normal sensation to touch, no weakness Musculoskeletal: normal tone, normal strength, no muscle wasting Psychiatric: normal affect, normal behavior, A&O x 3 Hosp A/P - Plan ECHO: EF 40-45% CT abdomen: left lower lobe consolidation and loculated left pleural effusion. Retained stool in colon. Distension of bladder Chest x ray 12/01: congestive heart failure This is a 69 year old female with chronic atrial fibrillation who presented with worsening shortness of breath for four days, nonproductive cough Acute hypoxic respiratory failure secondary to pulmonary edema/ pneumonia with pleural effusion - on admission chest x ray showed CHF. She was started on IV diuretics 40 mg IV bid, then switched to 20 mg IV 12/01. She also has been on IV levaquin - sputum culture growing moderate gram negative rods and moderate gram neg coccobacilli and gram positive cocci in clusters - due to worsening hypoxia today will switch to Iv vanc and meropenem - CT chest ordered to re-eval loculated pleural effusion, will do when stable. Repeat chest X ray showing opacification of left hemithorax. ABG showed pH 7.18 and pCO2 of 126 - started on BIPAP and transferred to IMCU - pulmonary consulted Atrial fibrillation - increased coreg to 12.5 mg bid Anemia - improved, with hemoglobin 9. She received 1 unit pRBC 12/01. EUSEBIO - resolved with IV diuretic JONATHAN - continue home CPAP Hypothyroidism - continue levothyroxine Atrial fibrillation - continue coreg. Continue eliquis Chronic leg pain - continue gabapentin - continue home tramadol if patient takes this - bilateral dopplers negative for DVT
[2019-12-03] MEDS ORDERED: methylPREDNISolone Sod Succ 40 MG VIAL IVP SCH (18:30)
[2019-12-03] MEDS ORDERED: Furosemide 20 MG/2 ML VIAL SLOW IVP SCH (18:45)
[2019-12-03] MEDS ORDERED: Fentanyl 100 MCG/2 ML VIAL ONE (19:02)
[2019-12-03] MEDS ORDERED: Propofol 1,000 MG/100 ML VIAL IV ONE (19:03)
[2019-12-03] MEDS ORDERED: Vecuronium 10 MG VIAL ONE (19:13)
[2019-12-03 19:40] LABS: Actual Bicarbonate (HCO3a) 37.6 mEq/L (22-28); Base Excess (BEa) 10.9 mEq/L (-2.0 to +3.0); Calcium, Ionized (arterial) 1.18 mmol/L (1.12-1.30); Carboxyhemoglobin (COHb) 1.5 gm% (0.0-3.0); Hemoglobin (Hb) 9.4 g/dL (12.0-16.0); O2 Tension (PaO2), arterial 172.4 mmHg (> 70.0); Potassium - ABG Lab 4.55 mmol/L (3.70-5.30); pH, Arterial 7.39 (7.35-7.45)
[2019-12-03 19:48] LABS: CO2 Tension 63.7 mmHg (35.0-45.0)
[2019-12-03 19:49] LABS: ALV-art Gradient 460.975 mmHg (0-20); Puncture Site RRA
[2019-12-03] MEDS: MEROPENEM 1 GM/50 ML 1 GM in Premix Bag 1 BAG IVPB SCH (20:36)
--- NOTE | 2019-12-03 20:39 | RAD ---
CHEST ONE VIEW: 12/03/19 HISTORY: Central line placement. COMPARISON: Earlier exam the same day. Endotracheal tube has been placed. NG tube is seen. Tip is difficult to visualize but appears to be b elow the hemidiaphragm. Right sided central line is present. Catheter tip overlies the superior vena cava. The distal end is somewhat obscured by overlying pacemaker leads. There is no pneumothorax. IMPRESSION: 1. Right sided central line placement. Catheter tip difficult to visualize and appears to overli e the superior vena cava right atrium junction region. 2. Endotracheal tube in satisfactory position. NG tube appears to be below the hemidiaphragm. So mewhat difficult to visualize due to technique. POS: [facility] [place]
--- NOTE | 2019-12-03 20:40 | RAD ---
KUB: 12/03/19 HISTORY: NG tube placement. NG tube is better visualized than on the chest x-ray and shown to be below the hemidiaphragm in the s tomach. IMPRESSION: NG tube overlying the stomach. POS: [facility]
[2019-12-03] MEDS ORDERED: Electrolyte Replacement Protoc 1 EACH EACH FS SCH (20:41)
[2019-12-03] MEDS ORDERED: Norepinephrine 8 MG/0.9% NS 250 ML IVPB SCH (20:45)
[2019-12-03] MEDS ORDERED: Sodium Chloride 0.9% 1,000 ML IV SCH (20:45)
[2019-12-03] MEDS ORDERED: Ventilator Sedation Protocol 1 EACH FS SCH (20:45)
[2019-12-03] MEDS ORDERED: Morphine 2 MG/ML VIAL SLOW IVP PRN (21:00)
[2019-12-03] MEDS ORDERED: Propofol BOLUS 1,000 MG/100 ML VIAL IV PRN (21:00)
[2019-12-03] MEDS ORDERED: Fentanyl BOLUS 250 ML IVPB PRN (21:00)
[2019-12-03] MEDS ORDERED: DISCONTINUE PREVIOUS NARCOTIC PAIN MEDICATIONS AND BENZODIAZEPINES FS SCH (21:00)
[2019-12-03] MEDS ORDERED: Lorazepam 2 MG/ML VIAL SLOW IVP PRN (21:00)
[2019-12-03] MEDS: Vancomycin HCl 1.75 GM in Sodium Chloride 0.9% 500 ML IVPB SCH (21:31)
[2019-12-03] MEDS: Sodium Chloride 0.9% 1,000 ML IV SCH (21:32)
[2019-12-03] MEDS: Vecuronium 10 MG VIAL IVP PRN (21:32)
[2019-12-03] MEDS: Propofol 1,000 MG/100 ML VIAL IV PRN (21:33)
--- NOTE | 2019-12-03 22:14 | CON ---
DATE OF CONSULTATION: 12/03/2019 CONSULTING PHYSICIAN: Dr. Hannah. REASON FOR CONSULTATION: Acute hypercapnic respiratory failure. HISTORY OF PRESENT ILLNESS: This patient is a 69-year-old female who was admitted to this facility on 11/30/2019 by the Hospitalist Group for 4-day history of increasing shortness of breath. At that time, the presenting x-ray demonstrated cardiomegaly with infiltrate versus effusion on the left. She was complaining of cough, but no fever or chills. She had been admitted with diagnosis of acute on chronic systolic heart failure and pneumonia. She was treated with IV Lasix, IV Levaquin, bronchodilators, and chest physiotherapy. Dr. Hannah saw the patient on 11/30, 12/01, and 12/02. On 11/30, the patient's breathing was reported to be improved, but her heart rate was in the 150s with atrial fibrillation, so she was given metoprolol. The next day, the patient had more improvement in her energy. She was ambulated and became hypoxic with room air sat in the 80s. She had an echo showing EF of 40% to 45% with a CT of the abdomen demonstrated a left lower lobe consolidation and pleural effusion. She was given additional Lasix today. She was seen in the morning by Dr. Hannah. She was complaining of leg and shoulder pain. Heart rate was reported as better. She was noted to be increasingly hypoxic throughout the afternoon. Carol levy was called. She was transferred to the [facility], placed on BiPAP. She had ABG showing a pH of 7.18 and pCO2 of 126. Her IV antibiotics were changed to vancomycin and meropenem, and I was subsequently consulted. x-ray from home in the most distressing finding was total opacification of left hemothorax. Subsequently, I requested the [facility] nurse to transfer the patient to the ICU and on my arrival, the patient was able to talk some on the BiPAP. She was tearful, asking if the current situation was her fault and we told her no. I told her chest was opacified, and I was worried that she either had collapsed from mucus plugging or external effusion or consolidation. I spoke with the patient's daughter in the lobby and told her that we needed to intubate the patient and perform bronchoscopy and possibly perform thoracentesis for which the daughter agreed. Also noted the patient only had a small IV in the upper part of her right breast for functioning access, so I had to put an emergent right IJ central line in. PAST MEDICAL HISTORY: Chronic atrial fibrillation, coronary artery disease, congestive heart failure, hypertension, anemia, chronic renal failure, and hypothyroidism. PAST SURGICAL HISTORY: Gastric bypass surgery, right foot surgery, tonsillectomy, lower extremity stent placement, hysterectomy, and ventricular pacemaker. FAMILY MEDICAL HISTORY: Remarkable for diabetes mellitus. SOCIAL HISTORY: Never smoked. Does not consume alcohol. CURRENT MEDICATIONS: 1. Eliquis. 2. Lipitor. 3. Coreg. 4. Vitamin D3. 5. Vitamin B12. 6. Lasix. 7. Neurontin. 8. Synthroid. 9. Meropenem. 10. Methylprednisolone. 11. Protonix. 12. Mirapex. 13. Senokot. 14. Ultram. 15. Vancomycin. HOME MEDICATIONS: 1. Eliquis. 2. Coreg. 3. Gabapentin. 4. Furosemide. 5. Levothyroxine. 6. Pramipexole. 7. Protonix. 8. Nystatin. 9. Ultram. 10. Pravastatin. REVIEW OF SYSTEMS: Cannot be obtained as the patient's current mechanical ventilation. PHYSICAL EXAMINATION: VITAL SIGNS: Heart rate 129, blood pressure 122/77, O2 saturation generally in the 90s, and respiratory rate 28. GENERAL: This patient was currently intubated and on mechanical ventilation - see operative notes. HEENT: She has class 4 Mallampati airway. NECK: No JVD. LUNGS: Initially had absent breath sounds on the left, but improved after intubation. Right side clear. CARDIOVASCULAR: S1 and S2. Tachycardic and paced, somewhat irregular. ABDOMEN: Soft and nontender to palpation. EXTREMITIES: No clubbing, cyanosis, or edema. LABORATORY DATA: Sodium 140, potassium 4.9, chloride 98, CO2 of 32, BUN 32, creatinine 0.9, and glucose 125. The pH 7.39, pCO2 of 64, PO2 of 172 on SIMV rate 20, tidal volume 450, PEEP 5, pressure support 10, and FiO2 of 100%. White blood cell count 10.7, hematocrit 34.4, and platelet count 357. COVID test was negative. X-ray was reviewed, again showed opacification of left hemothorax. ASSESSMENT: 1. Acute hypoxic respiratory failure, requiring mechanical ventilation. 2. Pneumonia. 3. Possible left pleural effusion. 4. Chronic atrial fibrillation - on anticoagulation. PLAN: 1. See operative notes. The patient has been intubated and placed on mechanical ventilation. I have placed a right IJ central line for venous access. 2. Bronchoscopy has been performed, removing copious mucoid secretions from the left mainstem bronchus and left lower lobe. 3. Thoracentesis , but I could not get any pleural fluid. 4. We will need a CT of the chest - this has already been ordered. 5. We will update family. Job ID: [id number]
--- NOTE | 2019-12-03 22:59 | OP ---
DATE OF PROCEDURE: 12/03/2019 PROCEDURE PERFORMED: Intubation and bronchoscopy. PREOPERATIVE DIAGNOSIS: Respiratory failure. POSTOPERATIVE DIAGNOSIS: Respiratory failure. Additionally, the patient had mucous plugging, left mainstem bronchus. ANESTHESIA: Etomidate 20 mg IV x1. DESCRIPTION OF PROCEDURE: Informed consent was obtained from the patient and her daughter. The patient was placed in the flap position. After the etomidate was given, a glide scope was used to intubate the patient orally with a 7.5 endotracheal tube on the first attempt. This was secured at 22 cm at the lip and placement was confirmed by bronchoscopy. A 2.4 Olympus bronchoscope was then placed through an adapter while the patient is on volume-cycled ventilation. An ET tube was approximately 1 cm above the abril. The right mainstem bronchus was clear. The right upper lobe, right lower lobe, and right middle lobes were clear. Left mainstem bronchus had copious mucoid secretions present. This extend down the left lower lobe. These were irrigated with saline and extracted to completion. The patient tolerated the procedure well. Job ID: [id number]
--- NOTE | 2019-12-03 23:01 | OP ---
DATE OF PROCEDURE: 12/03/2019 PROCEDURE PERFORMED: Central line placement. PREOPERATIVE DIAGNOSIS: Poor IV access. POSTOPERATIVE DIAGNOSIS: Successful right IJ central line placement. ANESTHESIA: 1% lidocaine without epinephrine. DESCRIPTION OF PROCEDURE: The operative site was cleansed with chlorhexidine and draped sterilely. 1% lidocaine was used to anesthetize the entry site. Real-time ultrasound was used to locate the right internal jugular vessel. Using modified Seldinger technique, a central line was placed in a vessel on the first attempt. Three ports flushed venous blood. Placement was confirmed by radiography. Job ID: [id number]
--- NOTE | 2019-12-03 23:02 | OP ---
DATE OF PROCEDURE: 12/03/2019 PROCEDURE PERFORMED: Thoracentesis. PREOPERATIVE DIAGNOSIS: Possible left pleural effusion. POSTOPERATIVE DIAGNOSIS: Possible left pleural effusion. ANESTHESIA: 1% lidocaine without epinephrine. DESCRIPTION OF PROCEDURE: Ultrasound was first used to locate the possible pocket of fluid in the left side while the patient was down in the right Trendelenburg position left side up. This was done about the 5th and 6th interspace in the midscapular line. After local been applied, an attempt to place a 21-gauge needle into the pleural space; however, I could not extract any fluid. Therefore, the procedure was aborted. Job ID: [id number]
[2019-12-03] MEDS: Atorvastatin Calcium 10 MG TAB PO SCH (23:05)
[2019-12-03] MEDS: Pramipexole Di-HCl 1 MG TAB PO SCH (23:06)
[2019-12-04] MEDS ORDERED: Magnesium 2 GM/50 ML 2 GM in Premix Bag 1 BAG IVPB SCH (00:15)
[2019-12-04] MEDS: Vecuronium 10 MG VIAL IVP PRN ×2 (02:05→05:30)
[2019-12-04] MEDS: MEROPENEM 1 GM/50 ML 1 GM in Premix Bag 1 BAG IVPB SCH ×3 (02:05→17:34)
[2019-12-04] MEDS: Propofol 1,000 MG/100 ML VIAL IV PRN ×5 (02:06→23:00)
[2019-12-04 04:48] LABS: #Lymphocytes 0.7 thou/uL (1.20-3.40); #Monocytes 0.8 thou/uL (0.11-0.59); #Neutrophils 8.4 thou/uL (1.40-6.50); %Eosinophils 0.2 % (0.0-10.0); %Lymphocytes 6.9 % (21.0-51.0); %Monocytes 7.5 % (0.0-10.0); %Neutrophils 85.4 % (42.0-75.0); Hemoglobin 8.3 g/dL (12.0-16.0); Mean Corpuscular HGB CONC 28.1 g/dL (32.0-36.0); Mean Corpuscular Hemoglobin 24.3 pg (27.0-31.0); Mean Corpuscular Volume 86.6 fL (78.0-98.0); Mean Platelet Volume 7.5 fL (7.4-10.4); Platelet Count 334 thou/uL (130-400); RBC Distribution Width 17.5 % (11.5-14.5); White Blood Cell (WBC) Count 9.9 thou/uL (4.8-10.8)
[2019-12-04 05:05] LABS: Anion Gap 16 mmol/L (10-20); BUN (Urea Nitrogen) 36 mg/dL (9.8-20.1); Calc. Creatinine Clearance 86 mL/min (70-130); Calcium 8.6 mg/dL (7.8-10.44); Carbon Dioxide 31 mmol/L (23-31); Chloride 99 mmol/L (98-107); Estimated GFR-MDRD 49; Glucose 129 mg/dL (83-110); Potassium 3.7 mmol/L (3.5-5.1); Sodium 142 mmol/L (136-145)
[2019-12-04] MEDS: Levothyroxine Sodium 100 MCG TAB PO SCH (05:24)
[2019-12-04 06:42] LABS: Actual Bicarbonate (HCO3a) 29.1 mEq/L (22-28); Base Excess (BEa) 7.4 mEq/L (-2.0 to +3.0); CO2 Tension 31.1 mmHg (35.0-45.0); Calcium, Ionized (arterial) 1.12 mmol/L (1.12-1.30); Carboxyhemoglobin (COHb) 1.6 gm% (0.0-3.0); Hemoglobin (Hb) 10.7 g/dL (12.0-16.0); Potassium - ABG Lab 3.63 mmol/L (3.70-5.30)
[2019-12-04 06:49] LABS: O2 Tension (PaO2), arterial 47.8 mmHg (> 70.0); Puncture Site RRAD; pH, Arterial 7.59 (7.35-7.45)
[2019-12-04 06:50] LABS: ALV-art Gradient 198.525 mmHg (0-20)
--- NOTE | 2019-12-04 09:29 | PRG ---
DATE OF SERVICE: 12/04/2019 35 minutes of critical care time. SUBJECTIVE: The patient remains intubated on mechanical ventilation. She will wake up without difficulty. OBJECTIVE: VITAL SIGNS: Temperature 99.7, pulse 81, blood pressure 135/59, O2 saturation 98%. Currently, sedated on propofol. Intake for the last 24 hours 2676, output 880. HEENT: Unremarkable except for the endotracheal tube. NECK: No JVD. CHEST: She has fairly clear breath sounds on the right. She is diminished in the left base, but does have better air movement compared to preintubation. CARDIAC: S1 and S2, paced. ABDOMEN: Soft, obese, and nontender. EXTREMITIES: No clubbing or cyanosis. She has trace edema. LABORATORY DATA: Sodium 142, potassium 3.7, chloride 99, CO2 of 31, BUN 36, creatinine 1.1, and glucose 129. White blood cell 9.9, hematocrit 29.4, and platelet count 334. PH of 7.59, pCO2 of 31, pO2 of 47 on SIMV rate 20, tidal volume 450, PEEP 5, pressure support 10, FiO2 of 40%. Chest x-ray shows better aeration in the left lung. There does appear to be an effusion going up the left side. I tried to tap this last night unsuccessfully. ASSESSMENT: 1. Left lung atelectasis yesterday. 2. Possibly complex left-sided pleural effusion. 3. Acute respiratory failure, requiring mechanical ventilation. 4. Chronic atrial fibrillation. PLAN: 1. CT is planned for this morning. 2. Continue antibiotics. 3. Continue mechanical ventilation, I have adjusted the settings. 4. Initiate tube feeds. 5. Prognosis remains guarded. 6. I spoke with daughter numerous times yesterday evening. Job ID: [id number]
[2019-12-04] MEDS: Cyanocobalamin (Vitamin B-12) 1,000 MCG TAB PO SCH (09:33)
[2019-12-04] MEDS: Carvedilol 6.25 MG TAB PO SCH ×2 (09:34→17:34)
[2019-12-04] MEDS: Gabapentin 300 MG CAP PO SCH ×2 (09:34→20:19)
[2019-12-04] MEDS: Senokot S 8.6-50 MG TAB PO SCH ×2 (09:35→20:20)
[2019-12-04] MEDS: Apixaban 5 MG TAB PO SCH (09:35)
[2019-12-04] MEDS: Pantoprazole 40 MG VIAL IVP SCH (09:35)
[2019-12-04] MEDS: fentaNYL Citrate/PF 2,000 MCG in Sodium Chloride 0.9% 60 ML IV SCH (09:37)
--- NOTE | 2019-12-04 13:13 | RAD ---
PORTABLE CHEST: HISTORY: Pneumonia. COMPARISON: Prior day's study. FINDINGS: The left hemithorax was completely opacified on the prior examination. Now there is still a large ef fusion but some aeration to the lung. Presumably, this would be related to a thoracentesis. I do no t see any signs of pneumothorax. Endotracheal and NG tubes are in satisfactory position. A right-si ded central line is seen with catheter tip overlying the right atrium. IMPRESSION: Interval improvement to the aeration of the left lung, presumably related to thoracentesis. No pneum othorax identified. Still large left pleural effusion. POS: [facility]
[2019-12-04] MEDS: Sodium Chloride 0.9% 1,000 ML IV SCH (13:18)
[2019-12-04] MEDS: Nystatin Powder 15 GM BOT TOP SCH ×2 (13:18→23:00)
--- NOTE | 2019-12-04 15:27 | CT ---
CT OF CHEST PERFORMED WITHOUT CONTRAST ENHANCEMENT: 12/04/19 HISTORY: Worsening pleural effusion, recently intubated. There is a large loculated left sided pleural effusion. Large part of the loculated fluid is along th e left lateral chest wall. The left lower lobe is essentially completely collapsed. There is narrowed appearance to both the right and left mainstem bronchi. Endotracheal tube is in place. There is a small right sided pleural effusion with right lower lobe atelectatic change. Thoracic aorta is normal in caliber. Coronary calcifications are present. Central line and pacemaker leads are noted. The visualized liver parenchyma shows no focal abnormalities. IMPRESSION: 1. Large loculated left sided pleural effusion. Large portion of the loculation is on the left lateral chest wall. There is complete collapse of the left lower lobe. There is narrowing to both the right and left main stem bronchi. This is more pronounced on the left. Also marked narrowing to the more peripheral left sided bronchi. 2. Mild atelectasis in the right base with a small right effusion. POS: [facility]
--- NOTE | 2019-12-04 17:15 | PDOC.HOSPP ---
- Subjective Encounter Date: 12/04/19 Encounter Time: 17:10 Subjective: f/u for resp failure requiring mech ventilation and s/p L-sided thoracentesis. Receiving Meropenem/Vancomycin. - Objective Vital Signs & Weight: Vital Signs (12 hours) Temp Pulse Resp BP Pulse Ox 12/04/19 16:00 99.3 F 12 12/04/19 14:48 78 16 99 12/04/19 14:00 12 12/04/19 12:00 98.9 F 12 12/04/19 11:20 74 12/04/19 11:19 76 22 H 99 12/04/19 10:00 12 12/04/19 09:34 124/62 12/04/19 08:00 99.7 F H 12 99 12/04/19 06:51 82 15 95 12/04/19 06:00 20 Weight Admit Weight 258 lb Weight 257 lb 4.471 oz Most Recent Monitor Data Heart Rate from ECG 78 NIBP 120/59 NIBP BP-Mean 79 Respiration from ECG 18 SpO2 98 I&O: 12/03/19 12/04/19 12/05/19 06:59 06:59 06:59 Intake Total 1000 2676 30 Output Total 1625 880 345 Balance -625 1796 -315 Result Diagrams: 12/04/19 03:30 12/04/19 03:30 Additional Labs: Accuchecks 12/04/19 13:59 POC Glucose 124 H Microbiology 12/03/19 19:20 Alveolar Lavage Bronchoalveolar Lavage Cult, Quant - Preliminary 12/03/19 05:24 Sputum Respiratory Culture - Preliminary 11/30/19 19:37 Venous blood - Right Arm Blood Culture - Preliminary NO GROWTH AT 48 HOURS 11/30/19 19:37 Venous blood - Left Arm Blood Culture - Preliminary NO GROWTH AT 48 HOURS Laboratory Tests 11/30/19 12/01/19 12/02/19 21:03 06:58 04:06 WBC 16.3 H 11.4 H Hgb 7.3 L 8.1 L BUN Magnesium SARS-CoV-2 (PCR) Not Detected 12/03/19 12/03/19 12/03/19 04:08 17:32 17:32 WBC Hgb 9.5 L BUN 32 H Magnesium 1.9 SARS-CoV-2 (PCR) Radiology Reviewed by me: Yes (PCXR - L pleural eff, lines/tubes in place) EKG Reviewed by me: Yes (Tele - A-fib 70's) Hospitalist ROS - Medication Medications: Active Medications Generic Name Dose Route Start Last Admin Trade Name Freq PRN Reason Stop Dose Admin Acetaminophen 650 mg 11/30/19 20:10 12/01/19 14:33 Acetaminophen 325 Mg Tab PO 650 mg Q4H PRN Administration Headache/Fever Albuterol/Ipratropium 3 ml 12/03/19 22:30 12/04/19 14:48 Ipratropium/Albuterol Sulfate 3 Ml Neb NEB 3 ml [id number] CLAUS Administration Atorvastatin Calcium 10 mg 12/01/19 21:00 12/03/19 23:05 Atorvastatin Calcium 10 Mg Tab PO 10 mg HS CLAUS Administration Carvedilol 12.5 mg 12/04/19 08:00 12/04/19 09:34 Carvedilol 6.25 Mg Tab PO 12.5 mg BID-WM CLAUS Administration Cyanocobalamin 5,000 mcg 12/02/19 09:00 12/04/19 09:33 Cyanocobalamin (Vitamin B-12) 1,000 Mcg Tab PO 5,000 mcg DAILY CLAUS Administration Gabapentin 300 mg 12/01/19 21:00 12/04/19 09:34 Gabapentin 300 Mg Cap PO 300 mg BID CLAUS Administration Meropenem 1 gm/ Device 50 mls @ 100 mls/hr 12/03/19 18:00 12/04/19 10:41 IVPB 50 mls 0200,1000,1800 CLAUS Administration Vancomycin HCl 1.75 gm/ Sodium 500 mls @ 250 mls/hr 12/03/19 20:00 12/03/19 21:31 Chloride IVPB 500 mls 2000 CLAUS Administration Sodium Chloride 1,000 mls @ 70 mls/hr 12/03/19 20:45 12/04/19 13:18 Normal Saline 0.9% IV 1,000 mls .[id number] CLAUS Administration Fentanyl Citrate 2,000 mcg/ 100 mls @ 0 mls/hr 12/03/19 21:00 12/04/19 09:37 Sodium Chloride IV 01/02/20 21:00 100 mls INF CLAUS Administration Protocol Per Protocol Levothyroxine Sodium 100 mcg 12/02/19 06:00 12/04/19 05:24 Levothyroxine Sodium 100 Mcg Tab PO 100 mcg 0600 CLAUS Administration Nystatin 0 gm 12/01/19 21:00 12/04/19 13:18 Nystatin Powder 15 Gm Bot TOP 1 applic BID CLAUS Administration Pantoprazole Sodium 40 mg 12/01/19 21:00 12/03/19 23:06 Pantoprazole 40 Mg Tab PO 40 mg HS CLAUS Administration Pantoprazole Sodium 40 mg 12/04/19 09:00 12/04/19 09:35 Pantoprazole 40 Mg Vial IVP 40 mg DAILY CLAUS Administration Pramipexole Dihydrochloride 1 mg 12/01/19 21:00 12/03/19 23:06 Pramipexole Di-Hcl 1 Mg Tab PO 1 mg HS CLAUS Administration Propofol 1,000 mg 12/03/19 21:00 12/04/19 14:20 Propofol 1,000 Mg/100 Ml Vial IV 01/02/20 21:00 1,000 mg INF PRN Administration TO ACHIEVE GOAL RASS Protocol Senna/Docusate Sodium 1 tab 12/02/19 21:00 12/04/19 09:35 Senokot S 8.6-50 Mg Tab PO 1 tab BID CLAUS Administration Sodium Chloride 10 ml 12/03/19 21:00 12/04/19 09:36 Flush - Normal Saline 10 Ml Syringe IVF 10 ml Q12HR CLAUS Administration Tramadol HCl 50 mg 12/01/19 19:05 12/03/19 11:12 Tramadol Hcl 50 Mg Tab PO 50 mg Q6H PRN Administration Moderate Pain (4-6) Vecuronium [place] 10 mg 12/03/19 20:41 12/04/19 05:30 Vecuronium 10 Mg Vial IVP 10 mg Q30MIN PRN Administration Agitation - Exam General Appearance: ill appearing General - other findings: sedate on mech vent Eye: PERRL, anicteric sclera ENT: normocephalic atraumatic, no oropharyngeal lesions ENT - other findings: ETT in place Neck: supple, symmetric, no JVD, no thyromegaly Heart: no gallops, no rubs, normal peripheral pulses, irregular Heart - other findings: S1, S2 Respiratory - other findings: diminished in L hemithorax, bases Gastrointestinal: soft, non-tender, non-distended, normal bowel sounds Extremities: no cyanosis, no clubbing, 2+ LE edema Skin: normal turgor Neurological - other findings: sedate on mech vent Psychiatric: somnolent, lethargic Hosp A/P (1) Acute respiratory failure with hypoxia Code(s): J96.01 - ACUTE RESPIRATORY FAILURE WITH HYPOXIA Status: Acute Plan: Continue mech ventilation, see below for mgmt (2) Pneumonia Code(s): J18.9 - PNEUMONIA, UNSPECIFIED ORGANISM Status: Acute Qualifiers: Laterality: left Plan: Bacterial pneumonia, suspect gm + cocci, continue Meropenem/Vancomycin, ventilatory support (3) Pleural effusion, left Code(s): J90 - PLEURAL EFFUSION, NOT ELSEWHERE CLASSIFIED Status: Acute Plan: Likely parapneumonic effusion, see above, s/p thoracentesis (4) Chronic atrial fibrillation Code(s): I48.20 - CHRONIC ATRIAL FIBRILLATION, UNSPECIFIED Status: Chronic Plan: Rate-controlled currently, - Plan continue antibiotics, 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
[2019-12-04] MEDS: Pramipexole Di-HCl 1 MG TAB PO SCH (20:19)
[2019-12-04] MEDS: Atorvastatin Calcium 10 MG TAB PO SCH (20:19)
[2019-12-04] MEDS: Vancomycin HCl 1.75 GM in Sodium Chloride 0.9% 500 ML IVPB SCH (20:19)
[2019-12-05] MEDS: fentaNYL Citrate/PF 2,000 MCG in Sodium Chloride 0.9% 60 ML IV SCH ×2 (02:04→20:48)
[2019-12-05] MEDS: MEROPENEM 1 GM/50 ML 1 GM in Premix Bag 1 BAG IVPB SCH ×3 (02:05→17:16)
[2019-12-05] MEDS: Sodium Chloride 0.9% 1,000 ML IV SCH ×2 (02:54→15:48)
[2019-12-05] MEDS: Propofol 1,000 MG/100 ML VIAL IV PRN ×4 (02:54→19:19)
[2019-12-05 04:52] LABS: #Eosinphils 0.1 thou/uL (0.0-0.7); #Lymphocytes 0.6 thou/uL (1.20-3.40); #Monocytes 0.7 thou/uL (0.11-0.59); #Neutrophils 8.8 thou/uL (1.40-6.50); %Basophils 0.1 % (0.0-1.0); %Eosinophils 0.6 % (0.0-10.0); %Lymphocytes 5.7 % (21.0-51.0); %Monocytes 7.2 % (0.0-10.0); %Neutrophils 86.4 % (42.0-75.0); Hemoglobin 7.8 g/dL (12.0-16.0); Mean Corpuscular HGB CONC 29.7 g/dL (32.0-36.0); Mean Corpuscular Hemoglobin 24.2 pg (27.0-31.0); Mean Corpuscular Volume 81.7 fL (78.0-98.0); Mean Platelet Volume 7.8 fL (7.4-10.4); Platelet Count 304 thou/uL (130-400); RBC Distribution Width 18.2 % (11.5-14.5); Red Blood Cell (RBC) Count 3.22 mill/uL (4.20-5.40); White Blood Cell (WBC) Count 10.2 thou/uL (4.8-10.8)
[2019-12-05] MEDS: Carvedilol 6.25 MG TAB PO SCH ×2 (05:08→16:36)
[2019-12-05] MEDS: Levothyroxine Sodium 100 MCG TAB PO SCH (05:08)
[2019-12-05 05:12] LABS: Anion Gap 13 mmol/L (10-20); BUN (Urea Nitrogen) 36 mg/dL (9.8-20.1); Calc. Creatinine Clearance 77 mL/min (70-130); Calcium 8.2 mg/dL (7.8-10.44); Carbon Dioxide 32 mmol/L (23-31); Chloride 101 mmol/L (98-107); Estimated GFR-MDRD 43; Glucose 162 mg/dL (83-110); Potassium 3.9 mmol/L (3.5-5.1); Sodium 142 mmol/L (136-145)
[2019-12-05 07:03] LABS: Actual Bicarbonate (HCO3a) 30.5 mEq/L (22-28); Base Excess (BEa) 5.7 mEq/L (-2.0 to +3.0); CO2 Tension 45.8 mmHg (35.0-45.0); Calcium, Ionized (arterial) 1.11 mmol/L (1.12-1.30); Carboxyhemoglobin (COHb) 1.5 gm% (0.0-3.0); Hemoglobin (Hb) 8.9 g/dL (12.0-16.0); O2 Tension (PaO2), arterial 99.2 mmHg (> 70.0); Potassium - ABG Lab 3.61 mmol/L (3.70-5.30); pH, Arterial 7.44 (7.35-7.45)
[2019-12-05 07:14] LABS: Puncture Site RRAD
[2019-12-05] MEDS ORDERED: Fentanyl 100 MCG/2 ML VIAL ONE ×2 (07:23)
[2019-12-05] MEDS ORDERED: SUGAMMADEX SODIUM 500 MG/5 ML VIAL ONE (07:23)
[2019-12-05] MEDS ORDERED: Phenylephrine 10 MG/ML VIAL ONE (07:23)
--- NOTE | 2019-12-05 08:14 | PRG ---
DATE OF SERVICE: 12/05/2019 TIME SPENT: 35 minutes of critical care time. SUBJECTIVE: The patient remains intubated on mechanical ventilation, but no acute changes overnight. She is scheduled for decortication later today. OBJECTIVE: VITAL SIGNS: Temperature 98, pulse 61, blood pressure 152/74, and O2 saturation 100%. 24-hour intake 3196, output 1145. HEENT: Unremarkable. NECK: No JVD. LUNGS: Diminished breath sounds, left globally, right side clear. CARDIAC: S1 and S2. Regular. ABDOMEN: Obese, soft, nontender, and nondistended. EXTREMITIES: No clubbing, cyanosis, or edema. LABORATORY DATA: White blood cell count 10, hematocrit 26.3, and platelet count 304. PH of 7.44, pCO2 of 45, pO2 of 90 on SIMV rate 12, tidal volume 450, PEEP 8, pressure support 10, and FiO2 of 40%. Sodium 142, potassium 3.9, chloride 101, CO2 of 32, BUN 36, creatinine 1.2, and glucose 162. ASSESSMENT: 1. Left-sided loculated effusion. 2. Acute respiratory failure, requiring mechanical ventilation. 3. Morbid obesity. 4. Chronic atrial fibrillation. PLAN: 1. Hopeful thoracoscopic decortication today. 2. Eliquis has been stopped. 3. Continue mechanical ventilation. 4. Continue IV antibiotics. Job ID: [id number]
[2019-12-05] MEDS ORDERED: Rocuronium Bromide 10 MG/ML (10ML VIAL) ONE (10:16)
[2019-12-05] MEDS ORDERED: PROPOFOL 200 MG/20 ML VIAL ONE (10:16)
--- NOTE | 2019-12-05 10:58 | RAD ---
PORTABLE CHEST: HISTORY: Pneumonia. COMPARISON: 12/04/2019 exam. FINDINGS: Extensive loculated left-sided effusion is again demonstrated. Endotracheal tube and NG tube as well as right central line are unchanged in position. Pleural and parenchymal changes in the right lung are unchanged. IMPRESSION: Essentially stable exam. POS: OFF
[2019-12-05 11:19] LABS: Actual Bicarbonate (HCO3a) 29.8 mEq/L (22-28); Base Excess (BEa) 5.2 mEq/L (-2.0 to +3.0); CO2 Tension 43.7 mmHg (35.0-45.0); Calcium, Ionized (arterial) 1.06 mmol/L (1.12-1.30); Carboxyhemoglobin (COHb) 1.2 gm% (0.0-3.0); Hemoglobin (Hb) 9.7 g/dL (12.0-16.0); O2 Tension (PaO2), arterial 68.6 mmHg (> 70.0); pH, Arterial 7.45 (7.35-7.45)
[2019-12-05 11:25] LABS: ALV-art Gradient 161.975 mmHg (0-20); Puncture Site ALINE
--- NOTE | 2019-12-05 13:17 | RAD ---
PORTABLE CHEST: HISTORY: Chest tube placement: FINDINGS: Left-sided pleural effusion is present. Two left chest tubes are in place. It appears that the side hole of one of these chest tubes is outside of the chest cavity. No other interval change. IMPRESSION: Placement of 2 left-sided chest tubes. The tips of the tubes are obscured by the overlying pacemaker device. The more inferiorly located chest tube has a side hole which appears to be outside the ches t cavity. POS: OFF
[2019-12-05] MEDS: Pantoprazole 40 MG VIAL IVP SCH (15:00)
[2019-12-05] MEDS: Gabapentin 300 MG CAP PO SCH ×2 (15:46→20:47)
[2019-12-05] MEDS: Nystatin Powder 15 GM BOT TOP SCH ×2 (15:46→20:48)
[2019-12-05] MEDS: Cyanocobalamin (Vitamin B-12) 1,000 MCG TAB PO SCH (15:46)
[2019-12-05] MEDS: Senokot S 8.6-50 MG TAB PO SCH ×2 (15:46→20:48)
--- NOTE | 2019-12-05 17:41 | PDOC.HOSPP ---
- Subjective Encounter Date: 12/05/19 Encounter Time: 17:30 Subjective: f/u for PNA and loculated L pleural effusion s/p chest tube placement x 2 today. Remains on mech ventilation and receiving Meropenem/Vancomycin. - Objective Vital Signs & Weight: Vital Signs (12 hours) Temp Pulse Resp BP Pulse Ox 12/05/19 16:36 102/65 12/05/19 16:00 96.9 F L 12 12/05/19 14:54 60 12/05/19 14:53 60 12 98 12/05/19 14:00 12 12/05/19 12:00 97.4 F L 12 98 12/05/19 10:41 60 12 40 L 12/05/19 10:40 60 12 96 12/05/19 08:00 97.7 F 12/05/19 07:20 60 8 L 100 12/05/19 07:16 60 12/05/19 06:00 12 Weight Admit Weight 258 lb Weight 252 lb 3.341 oz Most Recent Monitor Data Heart Rate from ECG 60 NIBP 212/82 NIBP BP-Mean 125 Respiration from ECG 12 SpO2 99 I&O: 12/04/19 12/05/19 12/06/19 06:59 06:59 06:59 Intake Total 2676 3196 905 Output Total 880 1145 510 Balance 1796 2051 395 Result Diagrams: 12/05/19 04:40 12/05/19 04:40 Additional Labs: Accuchecks 12/04/19 22:03 POC Glucose 149 H Microbiology 12/03/19 19:20 Alveolar Lavage Bronchoalveolar Lavage Cult, Quant - Final 12/03/19 05:24 Sputum Respiratory Culture - Final 12/05/19 09:00 Pleural fluid Body Fluid Culture - Preliminary 12/03/19 19:20 Alveolar Lavage Bronchoalveolar Lavage Cult, Quant - Preliminary 12/03/19 05:24 Sputum Respiratory Culture - Preliminary 11/30/19 19:37 Venous blood - Right Arm Blood Culture - Preliminary NO GROWTH AT 48 HOURS 11/30/19 19:37 Venous blood - Left Arm Blood Culture - Preliminary NO GROWTH AT 48 HOURS Laboratory Tests 11/30/19 12/01/19 12/02/19 21:03 06:58 04:06 WBC 16.3 H 11.4 H Hgb 7.3 L 8.1 L BUN Magnesium SARS-CoV-2 (PCR) Not Detected 12/03/19 12/03/19 12/03/19 04:08 17:32 17:32 WBC Hgb 9.5 L BUN 32 H Magnesium 1.9 SARS-CoV-2 (PCR) Radiology Reviewed by me: Yes (PCXR - L hemithorax opacification, 2 chest tubes in L hemithorax) EKG Reviewed by me: Yes (Tele - A-fib in 80's) Hospitalist ROS - Medication Medications: Active Medications Generic Name Dose Route Start Last Admin Trade Name Freq PRN Reason Stop Dose Admin Acetaminophen 650 mg 11/30/19 20:10 12/01/19 14:33 Acetaminophen 325 Mg Tab PO 650 mg Q4H PRN Administration Headache/Fever Albuterol/Ipratropium 3 ml 12/03/19 22:30 12/05/19 14:53 Ipratropium/Albuterol Sulfate 3 Ml Neb NEB 3 ml [id number] CLAUS Administration Atorvastatin Calcium 10 mg 12/01/19 21:00 12/04/19 20:19 Atorvastatin Calcium 10 Mg Tab PO 10 mg HS CLAUS Administration Carvedilol 12.5 mg 12/04/19 08:00 12/05/19 16:36 Carvedilol 6.25 Mg Tab PO 12.5 mg BID-WM CLAUS Administration Cyanocobalamin 5,000 mcg 12/02/19 09:00 12/05/19 15:46 Cyanocobalamin (Vitamin B-12) 1,000 Mcg Tab PO Not Given DAILY CLAUS Gabapentin 300 mg 12/01/19 21:00 12/05/19 15:46 Gabapentin 300 Mg Cap PO Not Given BID CLAUS Meropenem 1 gm/ Device 50 mls @ 100 mls/hr 12/03/19 18:00 12/05/19 17:16 IVPB 50 mls 0200,1000,1800 CLAUS Administration Vancomycin HCl 1.75 gm/ Sodium 500 mls @ 250 mls/hr 12/03/19 20:00 12/04/19 20:19 Chloride IVPB 500 mls 2000 CLAUS Administration Sodium Chloride 1,000 mls @ 70 mls/hr 12/03/19 20:45 12/05/19 15:48 Normal Saline 0.9% IV 1,000 mls .[id number] CLAUS Administration Fentanyl Citrate 2,000 mcg/ 100 mls @ 0 mls/hr 12/03/19 21:00 12/05/19 02:04 Sodium Chloride IV 01/02/20 21:00 100 mls INF CLAUS Administration Protocol Per Protocol Levothyroxine Sodium 100 mcg 12/02/19 06:00 12/05/19 05:08 Levothyroxine Sodium 100 Mcg Tab PO 100 mcg 0600 CLAUS Administration Nystatin 0 gm 12/01/19 21:00 12/05/19 15:46 Nystatin Powder 15 Gm Bot TOP Not Given BID CLAUS Pantoprazole Sodium 40 mg 12/01/19 21:00 12/04/19 20:19 Pantoprazole 40 Mg Tab PO 40 mg HS CLAUS Administration Pantoprazole Sodium 40 mg 12/04/19 09:00 12/05/19 15:00 Pantoprazole 40 Mg Vial IVP 40 mg DAILY CLAUS Administration Pramipexole Dihydrochloride 1 mg 12/01/19 21:00 12/04/19 20:19 Pramipexole Di-Hcl 1 Mg Tab PO 1 mg HS CLAUS Administration Propofol 1,000 mg 12/03/19 21:00 12/05/19 14:41 Propofol 1,000 Mg/100 Ml Vial IV 01/02/20 21:00 1,000 mg INF PRN Administration TO ACHIEVE GOAL RASS Protocol Senna/Docusate Sodium 1 tab 12/02/19 21:00 12/05/19 15:46 Senokot S 8.6-50 Mg Tab PO Not Given BID [facility] Sodium Chloride 10 ml 12/03/19 21:00 12/05/19 15:47 Flush - Normal Saline 10 Ml Syringe IVF Not Given Q12HR [facility] Tramadol HCl 50 mg 12/01/19 19:05 12/03/19 11:12 Tramadol Hcl 50 Mg Tab PO 50 mg Q6H PRN Administration Moderate Pain (4-6) Vecuronium [place] 10 mg 12/03/19 20:41 12/04/19 05:30 Vecuronium 10 Mg Vial IVP 10 mg Q30MIN PRN Administration Agitation - Exam General - other findings: sedate on mech ventilation Eye: PERRL, anicteric sclera ENT: normocephalic atraumatic, no oropharyngeal lesions Neck: supple, symmetric, no JVD, no thyromegaly Heart: no gallops, no rubs, normal peripheral pulses, irregular Heart - other findings: S1, S2 Respiratory - other findings: diminished in L- hemithorax, [address], no crepitus Gastrointestinal: soft, non-tender, non-distended, normal bowel sounds, no palpable masses Extremities: no cyanosis, 1+ LE edema Skin: normal turgor Psychiatric: somnolent Psychiatric - other findings: sedate on mech ventilation Hosp A/P (1) Acute respiratory failure with hypoxia Code(s): J96.01 - ACUTE RESPIRATORY FAILURE WITH HYPOXIA Status: Acute Plan: Continue mech ventilation (2) Pneumonia Code(s): J18.9 - PNEUMONIA, UNSPECIFIED ORGANISM Status: Acute Qualifiers: Laterality: left Plan: Continue Meropenem/Vancomycin, mech ventilation (3) Pleural effusion, left Code(s): J90 - PLEURAL EFFUSION, NOT ELSEWHERE CLASSIFIED Status: Acute Plan: s/p 2-chest tubes 12/05/19 (4) Chronic atrial fibrillation Code(s): I48.20 - CHRONIC ATRIAL FIBRILLATION, UNSPECIFIED Status: Chronic (5) Microcytic anemia Code(s): D50.9 - IRON DEFICIENCY ANEMIA, UNSPECIFIED Status: Acute Plan: s/p 2u PRBC's, serial H/H monitoring - Plan continue antibiotics, respiratory therapy, DVT proph w/SCDs Continue critical support Continue Meropenem/Vancomycin Continue ventilatory support Monitor chest tube outputs Nutritional support with Vital HP @ 25ml/h PCXR in am AM lab: BMP, CBC
[2019-12-05 19:08] LABS: Vancomycin, Trough 18.6 ug/mL
--- NOTE | 2019-12-05 20:28 | OP ---
DATE OF PROCEDURE: 12/05/2019 PREOPERATIVE DIAGNOSIS: Empyema, loculated effusion, left chest. POSTOPERATIVE DIAGNOSIS: Empyema, loculated effusion, left chest. PROCEDURE PERFORMED: Left thoracoscopy with decortication. ANESTHESIA: General. ESTIMATED BLOOD LOSS: 100 to 200. TRANSFUSION: 1 unit of packed red cells. FINDINGS: The patient's lung was adherent with gelatinous appearing material throughout. Posteriorly, the lung was more densely adherent and could not be fully mobilized, although upon attempting to do this, a small area of purulence was entered. Cultures were sent. DESCRIPTION OF PROCEDURE: After adequate anesthesia had been obtained, the patient was placed in the 45 degree right lateral decubitus position and prepped and draped. Incision was made and carried down about 2 inches through adipose tissue to the chest wall where a Katharine clamp was used to enter the chest cavity. Clear yellow fluid came out here. A 10 trocar was then inserted and then there was some bloody drainage from this. The trocar was removed and the finger inserted and the lung appeared to be adherent or fully inflated. At that time, Anesthesia adjusted her endotracheal tube while I made a second incision more anteriorly, entered the chest with a Katharine and then placed a finger and this was free space. The scope was inserted and fluid was aspirated for culture. Following this, parts of the lung were mobilized using the scope and then the original incision, a clamp was placed in here and helped mobilize the lung. Posterior to the initial incision, however, the lung was quite adherent and could not be mobilized safely although during attempts at mobilization, one small area of purulence was entered. The chest was irrigated with about 2 L of sterile water, following which, two 28 chest drains were placed. Wounds were then closed in layers and the patient was to be taken to the ICU in guarded condition. Job ID: [id number]
[2019-12-05] MEDS: Vancomycin HCl 1.75 GM in Sodium Chloride 0.9% 500 ML IVPB SCH (20:47)
[2019-12-05] MEDS: Atorvastatin Calcium 10 MG TAB PO SCH (20:47)
[2019-12-05] MEDS: Pramipexole Di-HCl 1 MG TAB PO SCH (20:48)
[2019-12-06] MEDS: MEROPENEM 1 GM/50 ML 1 GM in Premix Bag 1 BAG IVPB SCH ×3 (01:32→17:21)
[2019-12-06] MEDS: Sodium Chloride 0.9% 1,000 ML IV SCH (01:34)
[2019-12-06 04:43] LABS: Hemoglobin 8.2 g/dL (12.0-16.0); Mean Corpuscular HGB CONC 30.6 g/dL (32.0-36.0); Mean Corpuscular Hemoglobin 25.1 pg (27.0-31.0); Mean Corpuscular Volume 82.1 fL (78.0-98.0); Mean Platelet Volume 8.4 fL (7.4-10.4); Platelet Count 237 thou/uL (130-400); RBC Distribution Width 17.7 % (11.5-14.5); Red Blood Cell (RBC) Count 3.25 mill/uL (4.20-5.40); White Blood Cell (WBC) Count 15.7 thou/uL (4.8-10.8)
[2019-12-06 04:44] LABS: Band 21 % (5-11); Lymphocytes 1 % (21-51); MDiff Complete? YES; Monocytes 3 % (0-10); Neutrophil 75 % (42-75); Platelet Morphology Comment Appears Adequate
[2019-12-06 04:48] LABS: Anion Gap 13 mmol/L (10-20); BUN (Urea Nitrogen) 37 mg/dL (9.8-20.1); Calc. Creatinine Clearance 90 mL/min (70-130); Calcium 7.9 mg/dL (7.8-10.44); Carbon Dioxide 29 mmol/L (23-31); Chloride 104 mmol/L (98-107); Estimated GFR-MDRD 53; Glucose 151 mg/dL (83-110); Potassium 3.8 mmol/L (3.5-5.1); Sodium 142 mmol/L (136-145)
[2019-12-06] MEDS: Levothyroxine Sodium 100 MCG TAB PO SCH (05:27)
[2019-12-06] MEDS: Propofol 1,000 MG/100 ML VIAL IV PRN ×4 (05:27→17:29)
[2019-12-06 07:09] LABS: Actual Bicarbonate (HCO3a) 27.5 mEq/L (22-28); Base Excess (BEa) 2.1 mEq/L (-2.0 to +3.0); CO2 Tension 46.5 mmHg (35.0-45.0); Carboxyhemoglobin (COHb) 1.1 gm% (0.0-3.0); Hemoglobin (Hb) 10.8 g/dL (12.0-16.0); O2 Tension (PaO2), arterial 80.7 mmHg (> 70.0); Potassium - ABG Lab 3.95 mmol/L (3.70-5.30); pH, Arterial 7.39 (7.35-7.45)
[2019-12-06 07:11] LABS: Puncture Site RB
[2019-12-06 07:12] LABS: ALV-art Gradient 146.375 mmHg (0-20)
--- NOTE | 2019-12-06 07:56 | PRG ---
DATE OF SERVICE: 12/06/2019 Chest x-ray this morning does not look much better than yesterday postop, which was less improvement and was expected based on the findings. Chest tube output about 220 to 250 since surgery of serosanguineous. May consider a tPA infusion into the chest tubes in the next couple of days if her x-ray does not improve. Job ID: [id number]
[2019-12-06] MEDS ORDERED: Furosemide 40 MG/4 ML VIAL SLOW IVP SCH (08:30)
--- NOTE | 2019-12-06 08:49 | RAD ---
CHEST 1 VIEW: Date: 12/06/2019 INDICATION: History of pneumonia. COMPARISON: Prior exam dated 12/05/2019. FINDINGS: Overlying generator technician leads limits the exam. There is a right IJ central venous catheter, ET tube , and gastric catheter in place. There are two left-sided thoracostomy tubes. There is a multilead AI CD. Pleural parenchymal changes involving the left lung appear similar appearing. Cardiomegaly is sta ble appearing. No definite pneumothorax is evident. IMPRESSION: Largely stable examination to the prior dated 12/05/2019. POS: [facility]
[2019-12-06] MEDS: Cyanocobalamin (Vitamin B-12) 1,000 MCG TAB PO SCH (09:10)
[2019-12-06] MEDS: Gabapentin 300 MG CAP PO SCH ×2 (09:10→20:25)
[2019-12-06] MEDS: Carvedilol 6.25 MG TAB PO SCH ×2 (09:10→17:24)
[2019-12-06] MEDS: Pantoprazole 40 MG VIAL IVP SCH (09:10)
--- NOTE | 2019-12-06 09:10 | PRG ---
DATE OF SERVICE: 12/06/2019 35 minutes of critical care time. SUBJECTIVE: The patient remains intubated on mechanical ventilation with no acute changes overnight. OBJECTIVE: VITAL SIGNS: Her temperature is 97.6, pulse 60 and paced, blood pressure 110/42, O2 saturation 98%. She is on no vasopressors at this time. 24-hour intake was 2749, output 940. HEENT: Unremarkable. NECK: No adenopathy or JVD. LUNGS: Diminished breath sounds on the left compared to right. CARDIOVASCULAR: S1 and S2. Regular. ABDOMEN: Soft and nontender. EXTREMITIES: No clubbing or cyanosis. She has generalized edema throughout. LABORATORY DATA: PH 7.39, pCO2 of 46, pO2 of 80, on SIMV rate of 12, tidal volume 450, PEEP 5, pressure support 10, FiO2 of 40%. White blood cell count 15.7, hematocrit 26.7, and platelet count 237. Sodium 142, potassium 3.8, chloride 104, CO2 of 29, BUN 37, creatinine 1.0, and glucose 151. Culture showed no growth to date. ASSESSMENT: 1. Left-sided parapneumonic effusion-complex. 2. Acute respiratory failure requiring mechanical ventilation. 3. Morbid obesity. 4. Chest x-ray, continuing to show parapneumonic changes on the left despite decortication and chest tube placement. PLAN: 1. TPA may need to be administered to the chest tube if the x-ray does not begin to clear. 2. I will go ahead and give the patient dose diuretics and hold her IV fluids. 3. Continue enteral tube feeds. 4. Would like to give her a day or two more on the ventilator for considering extubation. Job ID: [id number]
[2019-12-06] MEDS: Senokot S 8.6-50 MG TAB PO SCH ×2 (09:11→20:26)
[2019-12-06] MEDS: Nystatin Powder 15 GM BOT TOP SCH ×2 (09:21→20:25)
[2019-12-06] MEDS: fentaNYL Citrate/PF 2,000 MCG in Sodium Chloride 0.9% 60 ML IV SCH (17:22)
--- NOTE | 2019-12-06 18:10 | PDOC.HOSPP ---
- Subjective Encounter Date: 12/06/19 Encounter Time: 18:15 Subjective: f/u for PNA/Resp failure on mech ventilation s/p L decortication and CT placement x 2. Remains on Meropenem/Vancomycin. - Objective Vital Signs & Weight: Vital Signs (12 hours) Temp Pulse Resp BP Pulse Ox 12/06/19 18:00 13 12/06/19 17:24 127/47 L 12/06/19 17:00 97.7 F 12/06/19 16:00 14 12/06/19 14:19 61 12 96 12/06/19 14:18 61 121/42 L 12/06/19 14:00 12 12/06/19 12:00 97.7 F 13 12/06/19 10:41 62 130/57 L 12/06/19 10:40 62 12 92 L 12/06/19 10:00 12 12/06/19 09:10 102/65 12/06/19 08:00 97.6 F 12 100 Weight Admit Weight 258 lb Weight 266 lb 8.622 oz Most Recent Monitor Data Heart Rate from ECG 61 NIBP 141/52 NIBP BP-Mean 81 Respiration from ECG 14 SpO2 99 I&O: 12/05/19 12/06/19 12/07/19 06:59 06:59 06:59 Intake Total 3196 2749.7 1186 Output Total 1145 940 315 Balance 2051 1809.7 871 Result Diagrams: 12/06/19 04:05 12/06/19 04:05 Additional Labs: Accuchecks 12/06/19 12/06/19 12/04/19 16:38 11:05 17:06 POC Glucose 149 H 145 H 127 H 12/03/19 16:23 POC Glucose 153 H Microbiology 12/03/19 19:20 Alveolar Lavage Bronchoalveolar Lavage Cult, Quant - Final 12/03/19 05:24 Sputum Respiratory Culture - Final 12/05/19 09:00 Pleural fluid Body Fluid Culture - Preliminary 12/05/19 09:00 Pleural fluid Body Fluid Culture - Preliminary 12/03/19 19:20 Alveolar Lavage Bronchoalveolar Lavage Cult, Quant - Preliminary 12/03/19 05:24 Sputum Respiratory Culture - Preliminary 11/30/19 19:37 Venous blood - Right Arm Blood Culture - Preliminary NO GROWTH AT 48 HOURS 11/30/19 19:37 Venous blood - Left Arm Blood Culture - Preliminary NO GROWTH AT 48 HOURS Laboratory Tests 11/30/19 12/01/19 12/02/19 21:03 06:58 04:06 WBC 16.3 H 11.4 H Hgb 7.3 L 8.1 L Neutrophils % Neutrophils % (Manual) Band Neuts % (Manual) BUN Magnesium SARS-CoV-2 (PCR) Not Detected 12/03/19 12/03/19 12/03/19 04:08 17:32 17:32 WBC Hgb 9.5 L Neutrophils % Neutrophils % (Manual) Band Neuts % (Manual) BUN 32 H Magnesium 1.9 SARS-CoV-2 (PCR) 12/05/19 12/06/19 04:40 04:05 WBC 10.2 Hgb 7.8 L Neutrophils % 86.4 H Neutrophils % (Manual) 75 Band Neuts % (Manual) 21 H BUN Magnesium SARS-CoV-2 (PCR) Radiology Reviewed by me: Yes (PCXR - lines/tubes in place, L-hemithorax opacified) EKG Reviewed by me: Yes (Tele - A-fib/pacing) Hospitalist ROS - Medication Medications: Active Medications Generic Name Dose Route Start Last Admin Trade Name Freq PRN Reason Stop Dose Admin Acetaminophen 650 mg 11/30/19 20:10 12/01/19 14:33 Acetaminophen 325 Mg Tab PO 650 mg Q4H PRN Administration Headache/Fever Albuterol/Ipratropium 3 ml 12/03/19 22:30 12/06/19 14:19 Ipratropium/Albuterol Sulfate 3 Ml Neb NEB 3 ml [id number] CLAUS Administration Atorvastatin Calcium 10 mg 12/01/19 21:00 12/05/19 20:47 Atorvastatin Calcium 10 Mg Tab PO 10 mg HS CLAUS Administration Carvedilol 12.5 mg 12/04/19 08:00 12/06/19 17:24 Carvedilol 6.25 Mg Tab PO Not Given BID-WM CLAUS Cyanocobalamin 5,000 mcg 12/02/19 09:00 12/06/19 09:10 Cyanocobalamin (Vitamin B-12) 1,000 Mcg Tab PO Not Given DAILY CLAUS Gabapentin 300 mg 12/01/19 21:00 12/06/19 09:10 Gabapentin 300 Mg Cap PO 300 mg BID CLAUS Administration Meropenem 1 gm/ Device 50 mls @ 100 mls/hr 12/03/19 18:00 12/06/19 17:21 IVPB 50 mls 0200,1000,1800 CLAUS Administration Vancomycin HCl 1.75 gm/ Sodium 500 mls @ 250 mls/hr 12/03/19 20:00 12/05/19 20:47 Chloride IVPB 500 mls 2000 CLAUS Administration Fentanyl Citrate 2,000 mcg/ 100 mls @ 0 mls/hr 12/03/19 21:00 12/06/19 17:22 Sodium Chloride IV 01/02/20 21:00 100 mls INF CLAUS Administration Protocol Per Protocol Levothyroxine Sodium 100 mcg 12/02/19 06:00 12/06/19 05:27 Levothyroxine Sodium 100 Mcg Tab PO 100 mcg 0600 CLAUS Administration Nystatin 0 gm 12/01/19 21:00 12/06/19 09:21 Nystatin Powder 15 Gm Bot TOP 1 applic BID CLAUS Administration Pramipexole Dihydrochloride 1 mg 12/01/19 21:00 12/05/19 20:48 Pramipexole Di-Hcl 1 Mg Tab PO 1 mg HS CLAUS Administration Propofol 1,000 mg 12/03/19 21:00 12/06/19 17:29 Propofol 1,000 Mg/100 Ml Vial IV 01/02/20 21:00 1,000 mg INF PRN Administration TO ACHIEVE GOAL RASS Protocol Senna/Docusate Sodium 1 tab 12/02/19 21:00 12/06/19 09:11 Senokot S 8.6-50 Mg Tab PO Not Given BID CLAUS Sodium Chloride 10 ml 12/03/19 21:00 12/06/19 09:11 Flush - Normal Saline 10 Ml Syringe IVF 10 ml Q12HR CLAUS Administration Tramadol HCl 50 mg 12/01/19 19:05 12/03/19 11:12 Tramadol Hcl 50 Mg Tab PO 50 mg Q6H PRN Administration Moderate Pain (4-6) Vecuronium [place] 10 mg 12/03/19 20:41 12/04/19 05:30 Vecuronium 10 Mg Vial IVP 10 mg Q30MIN PRN Administration Agitation - Exam General Appearance: ill appearing General - other findings: sedate on mech vent Eye: PERRL, anicteric sclera ENT: normocephalic atraumatic, no oropharyngeal lesions ENT - other findings: ETT in place Neck: supple, symmetric, no JVD, no thyromegaly Heart: RRR, no gallops, no rubs, normal peripheral pulses Heart - other findings: S1, S2 Respiratory - other findings: diminished in L hemithorax, L-chest tubes in place, no crepitus Gastrointestinal: soft, non-tender, non-distended, normal bowel sounds Extremities: no cyanosis, no clubbing Skin: normal turgor Neurological - other findings: opens eyes to movement of chest tube/LUE Musculoskeletal: generalized weakness Psychiatric: somnolent, lethargic Hosp A/P (1) Acute respiratory failure with hypoxia Code(s): J96.01 - ACUTE RESPIRATORY FAILURE WITH HYPOXIA Status: Acute Plan: Continue [facility] ventilation, pulmonary support (2) Pneumonia Code(s): J18.9 - PNEUMONIA, UNSPECIFIED ORGANISM Status: Acute Qualifiers: Laterality: left Plan: Continue Meropenem/Vancomycin/Duonebs (3) Pleural effusion, left Code(s): J90 - PLEURAL EFFUSION, NOT ELSEWHERE CLASSIFIED Status: Acute Plan: s/p decortication and CT's x 2, pleural fluid without growth in 24h (4) Chronic atrial fibrillation Code(s): I48.20 - CHRONIC ATRIAL FIBRILLATION, UNSPECIFIED Status: Chronic (5) Microcytic anemia Code(s): D50.9 - IRON DEFICIENCY ANEMIA, UNSPECIFIED Status: Acute - Plan continue antibiotics, social economist, respiratory therapy, DVT proph w/SCDs Continue critical support Continue Meropenem/Vancomycin Continue ventilatory support Monitor chest tube outputs Nutritional support with Vital HP @ 25ml/h PCXR in am Family considering Palliative measures, consult Palliative care service AM lab: BMP, CBC
[2019-12-06] MEDS: Vancomycin HCl 1.75 GM in Sodium Chloride 0.9% 500 ML IVPB SCH (20:25)
[2019-12-06] MEDS: Atorvastatin Calcium 10 MG TAB PO SCH (20:25)
[2019-12-06] MEDS: Pramipexole Di-HCl 1 MG TAB PO SCH (20:25)
[2019-12-07] MEDS: Propofol 1,000 MG/100 ML VIAL IV PRN ×3 (00:55→20:25)
[2019-12-07] MEDS: MEROPENEM 1 GM/50 ML 1 GM in Premix Bag 1 BAG IVPB SCH ×3 (01:18→18:33)
[2019-12-07 04:35] LABS: #Eosinphils 0.2 thou/uL (0.0-0.7); #Lymphocytes 0.6 thou/uL (1.20-3.40); #Monocytes 0.8 thou/uL (0.11-0.59); #Neutrophils 8.2 thou/uL (1.40-6.50); %Basophils 0.1 % (0.0-1.0); %Eosinophils 2.5 % (0.0-10.0); %Lymphocytes 5.6 % (21.0-51.0); %Monocytes 8.1 % (0.0-10.0); %Neutrophils 83.8 % (42.0-75.0); Hemoglobin 7.8 g/dL (12.0-16.0); Mean Corpuscular HGB CONC 30.6 g/dL (32.0-36.0); Mean Corpuscular Hemoglobin 25.4 pg (27.0-31.0); Mean Corpuscular Volume 82.8 fL (78.0-98.0); Mean Platelet Volume 8.7 fL (7.4-10.4); Platelet Count 206 thou/uL (130-400); Red Blood Cell (RBC) Count 3.08 mill/uL (4.20-5.40); White Blood Cell (WBC) Count 9.7 thou/uL (4.8-10.8)
[2019-12-07 04:47] LABS: Anion Gap 13 mmol/L (10-20); BUN (Urea Nitrogen) 42 mg/dL (9.8-20.1); Calc. Creatinine Clearance 74 mL/min (70-130); Calcium 6.9 mg/dL (7.8-10.44); Carbon Dioxide 28 mmol/L (23-31); Chloride 104 mmol/L (98-107); Estimated GFR-MDRD 39; Glucose 135 mg/dL (83-110); Potassium 4.3 mmol/L (3.5-5.1); Sodium 141 mmol/L (136-145)
[2019-12-07] MEDS: Levothyroxine Sodium 100 MCG TAB PO SCH (06:30)
[2019-12-07 07:05] LABS: Actual Bicarbonate (HCO3a) 27.2 mEq/L (22-28); Base Excess (BEa) 1.6 mEq/L (-2.0 to +3.0); CO2 Tension 47.4 mmHg (35.0-45.0); Calcium, Ionized (arterial) 1.07 mmol/L (1.12-1.30); Carboxyhemoglobin (COHb) 0.5 gm% (0.0-3.0); Hemoglobin (Hb) 9.5 g/dL (12.0-16.0); O2 Tension (PaO2), arterial 94.9 mmHg (> 70.0); Potassium - ABG Lab 4.21 mmol/L (3.70-5.30); pH, Arterial 7.38 (7.35-7.45)
[2019-12-07 07:06] LABS: Puncture Site L.R.
--- NOTE | 2019-12-07 07:58 | PRG ---
DATE OF SERVICE: The patient remains ventilated overnight. She did receive another unit of packed red cells yesterday evening; however, her hemoglobin today again is 7.8, compared to 8.2 yesterday prior to transfusion. She has had no significant chest tube output and her chest x-ray on the left may be actually looking a little better. We will go ahead and transfuse her another unit of blood and as long as her hemoglobin is trending down, would probably hold off on any intrapleural tPA. Based on her chest x-ray, I would suspect that she is not having any bleeding into her chest cavity. Job ID: [id number]
[2019-12-07] MEDS: Carvedilol 6.25 MG TAB PO SCH ×2 (08:39→18:32)
[2019-12-07] MEDS: Senokot S 8.6-50 MG TAB PO SCH ×2 (08:40→20:25)
[2019-12-07] MEDS: Nystatin Powder 15 GM BOT TOP SCH ×2 (08:40→20:25)
[2019-12-07] MEDS: Gabapentin 300 MG CAP PO SCH ×2 (08:40→20:25)
--- NOTE | 2019-12-07 08:46 | RAD ---
AP CHEST: HISTORY: Pneumonia followup. COMPARISON: 12/06/2019. FINDINGS: Electronic device and overlying leads obscure detail. The left lung base is completely obscured by t he electronic device. There is cardiomegaly and vascular congestion. Left side effusion with fluid seen along the peripheral chest wall and into the left apex. No evidence of significant change when compared to yesterday's study. POS: AGW
--- NOTE | 2019-12-07 09:33 | PRG ---
DATE OF SERVICE: 12/07/2019 35 minutes critical care time. SUBJECTIVE: The patient remains intubated on mechanical ventilation. There has been no acute changes overnight. OBJECTIVE: VITAL SIGNS: Temperature 97.6, pulse 60, blood pressure 117/53, O2 saturation 98%. She is currently on propofol and fentanyl drips. She is extremely sedated when I wake up for me on exam. HEENT: Unremarkable. NECK: No JVD. LUNGS: Diminished breath sounds on the left side compared to right. Has chest tube on the left. No air leak. CARDIOVASCULAR: S1, S2. Paced. ABDOMEN: Soft, obese, nontender, nondistended. EXTREMITIES: Bruised. LABORATORY DATA: White blood cell count 9.7, hemoglobin 7.8, hematocrit 25.5, and platelet count 206. PH 7.38, pCO2 47, pO2 of 94. Sodium 141, potassium 4.3, chloride 104, CO2 of 28, BUN 42, creatinine 1.3, and glucose 135. ASSESSMENT: 1. Acute respiratory failure, requiring mechanical ventilation. 2. Left-sided parapneumonic effusion-now status post decortication. 3. Morbid obesity. PLAN: 1. Try to reduce sedation, so that we can begin weaning. Right now, she is not making any effort above the set rate of 12 on her vent. 2. Continue antibiotics of meropenem, but discontinue the vancomycin since no Staphylococcus is grown out. 3. Continue to monitor labs and chest radiography. Job ID: [id number]
[2019-12-07] MEDS: Cyanocobalamin (Vitamin B-12) 1,000 MCG TAB PO SCH (10:31)
[2019-12-07] MEDS: fentaNYL Citrate/PF 2,000 MCG in Sodium Chloride 0.9% 60 ML IV SCH (11:28)
--- NOTE | 2019-12-07 14:21 | EKG ---
Test Reason : Blood Pressure : / mmHG Vent. Rate : 124 BPM Atrial Rate : 124 BPM P-R Int : 000 ms QRS Dur : 162 ms QT Int : 348 ms P-R-T Axes : 000 -07 137 degrees QTc Int : 499 ms Ventricular tachycardia (ventricular or supraventricular with aberration) Electronic ventricular pacemaker Abnormal ECG Confirmed by EDUARD HARMAN ([id number]) on 12/07/2019 2:21:07 PM Referred By: SHAZIA Confirmed By:EDUARD HARMAN
--- NOTE | 2019-12-07 14:23 | EKG ---
Test Reason : Blood Pressure : / mmHG Vent. Rate : 112 BPM Atrial Rate : 112 BPM P-R Int : 000 ms QRS Dur : 150 ms QT Int : 348 ms P-R-T Axes : 030 033 211 degrees QTc Int : 475 ms Ventricular-paced rhythm Atrial fibrillation Abnormal ECG Confirmed by EDUARD HARMAN ([id number]) on 12/07/2019 2:23:19 PM Referred By: ABEL Confirmed By:EDUARD HARMAN
--- NOTE | 2019-12-07 14:25 | EKG ---
Test Reason : Blood Pressure : / mmHG Vent. Rate : 106 BPM Atrial Rate : 100 BPM P-R Int : 000 ms QRS Dur : 168 ms QT Int : 430 ms P-R-T Axes : 000 -01 128 degrees QTc Int : 571 ms Ventricular-paced rhythm Abnormal ECG Confirmed by EDUARD HARMAN ([id number]) on 12/07/2019 2:25:01 PM Referred By: SHAZIA Confirmed By:EDUARD HARMAN
--- NOTE | 2019-12-07 14:50 | PDOC.PALCO ---
Palliative Care Consult - Consult Details Requesting Physician: Dr Lynne Reason for Consult: goals of care, family support - Pertinent HPI 69 year old woman who had a know history of atrial fibrillation and was on anticoagulant therapy with known heart failure. She presented to the emergency room with shortness of breath over the prior 4 days that progressed in severity, non productive cough. Negative for angina or fever. In the emergency room she was found to be hypoxic, and chest x-ray with opacification of left lower lobe. She was given IV Lasix and antibiotics and admitted for medical management and further evaluation. Continued respiratory decline and patient was subsequently intubated 12/02. Currently intubated with mechanical ventilation, chest tube placement x2, antibiotic therapy. Lives in independent home setting with her and receives home health services. Judithten is Philip and primary contact. He recently had a fall, breaking his femur and is wheelchair bound currently. - Pertinent PMH Morbid obesity, Atrial Fib, HF, HTN, CAD, Anemia of chronic disease, Chronic Renal failure, Hypothyroid - Social History Smoking Status: Never smoker Smoking: no tobacco exposure Alcohol Use: none Drug Use History: none Living Situation: independent - Allergies Allergies/Adverse Reactions: Allergies Allergy/AdvReac Type Severity Reaction Status Date / Time meperidine HCl [From Demerol] Allergy Severe "can't Verified 12/01/19 00:22 breathe" Penicillins Allergy Severe swelling, Verified 12/01/19 00:22 hives propoxyphene HCl Allergy Severe Hallucinate Verified 12/01/19 00:22 [From Darvon] adhesive Allergy Intermediate Verified 12/01/19 00:22 - Subjective Intubated, agitated and intermittently biting on et tube. - ROS Non Response: due to endotracheal tube, due to mental status - Objective Vital Signs: Vital Signs - Most Recent Temp Pulse Resp BP Pulse Ox 97.5 F L 60 12 113/58 L 98 12/07/19 11:00 12/07/19 14:17 12/07/19 14:16 12/07/19 14:17 12/07/19 14:16 Palliative Performance Scale: 30 - Physical Exam Constitutional: ill appearing, mild distress HEENT: moist MMs, sclera anicteric Respiratory: no wheezing, diminished lung sound Cardiovascular: RRR Deviation from normal: distant heart sounds Gastrointestinal: soft Deviation from normal: obese Genitourinary: leblanc catheter Musculoskeletal: edema present Neurology: moves all 4 limbs Deviation from normal: Sedated Skin: bruising, fragile, friable Deviation from normal: Sedated - Problem List (1) Palliative care encounter Code(s): Z51.5 - ENCOUNTER FOR PALLIATIVE CARE Current Visit: Yes Status: Acute (2) Acute respiratory failure with hypoxia Code(s): J96.01 - ACUTE RESPIRATORY FAILURE WITH HYPOXIA Current Visit: Yes Status: Acute (3) Pleural effusion, left Code(s): J90 - PLEURAL EFFUSION, NOT ELSEWHERE CLASSIFIED Current Visit: Yes Status: Acute (4) Pneumonia Code(s): J18.9 - PNEUMONIA, UNSPECIFIED ORGANISM Current Visit: Yes Status: Acute Qualifiers: Laterality: left (5) Chronic atrial fibrillation Code(s): I48.20 - CHRONIC ATRIAL FIBRILLATION, UNSPECIFIED Current Visit: Yes Status: Chronic (6) Acute on chronic systolic CHF (congestive heart failure) Code(s): I50.23 - ACUTE ON CHRONIC SYSTOLIC (CONGESTIVE) HEART FAILURE Current Visit: No Status: Acute (7) Morbid obesity Code(s): E66.01 - MORBID (SEVERE) OBESITY DUE TO EXCESS CALORIES Current Visit: No Status: Chronic (8) Physical deconditioning Code(s): R53.81 - OTHER MALAISE Current Visit: No Status: Chronic - Plan/Recommendations Plan: Palliative Care has introduced services to patient son. Daughter requested consult. Discussed resuscitation status, patient fear of dying in longterm. Family concerned of patient suffering with and poor meaningful recovery. A variety of options were discussed by Kip Garcia RN. Patient has had a declining functional status prior to this admission, as previously stated she was in rehab, left AMA and sought home health in the home setting. Family to discuss resuscitation and consideration of Goal of Care for their mother. Please also refer to Palliative Care RN notes in note section [50] minutes spent on this encounter with >50% of the time in counseling and coordination of care. Thank you for this very appropriate consult.
--- NOTE | 2019-12-07 19:21 | PDOC.HOSPP ---
- Subjective Encounter Date: 12/07/19 Encounter Time: 19:15 Subjective: f/u for PNA/Resp failure and L parapneumonic effusion s/p L decortication with CT's x 2. [facility] family discussing goals of care and potential palliative care. - Objective Vital Signs & Weight: Vital Signs (12 hours) Temp Pulse Pulse Resp BP BP Pulse Ox 12/07/19 18:32 102/54 L 12/07/19 18:26 60 12/07/19 14:17 60 113/58 L 12/07/19 14:16 60 12 98 12/07/19 14:00 12 12/07/19 12:00 12 12/07/19 11:19 60 12/07/19 11:00 97.5 F L 12/07/19 10:49 97.5 F L 60 12 132/68 98 12/07/19 10:00 12 12/07/19 08:39 115/54 L 12/07/19 08:38 97.5 F L 60 12 115/54 L 98 12/07/19 08:00 97.6 F 12 98 Weight Admit Weight 258 lb Weight 270 lb 4.587 oz Most Recent Monitor Data Heart Rate from ECG 60 NIBP 105/53 NIBP BP-Mean 70 Respiration from ECG 13 SpO2 97 I&O: 12/06/19 12/07/19 12/08/19 06:59 06:59 06:59 Intake Total 2749.7 2807 467 Output Total 940 660 285 Balance 1809.7 2147 182 Result Diagrams: 12/07/19 04:10 12/07/19 04:10 Additional Labs: Accuchecks 12/07/19 12/07/19 12/06/19 16:54 08:57 21:58 POC Glucose 146 H 126 H 144 H Microbiology 12/03/19 19:20 Alveolar Lavage Bronchoalveolar Lavage Cult, Quant - Final 12/03/19 05:24 Sputum Respiratory Culture - Final 12/05/19 09:00 Pleural fluid Body Fluid Culture - Preliminary 12/05/19 09:00 Pleural fluid Body Fluid Culture - Preliminary 12/05/19 09:00 Pleural fluid Body Fluid Culture - Preliminary 12/03/19 19:20 Alveolar Lavage Bronchoalveolar Lavage Cult, Quant - Preliminary 12/03/19 05:24 Sputum Respiratory Culture - Preliminary 11/30/19 19:37 Venous blood - Right Arm Blood Culture - Preliminary NO GROWTH AT 48 HOURS 11/30/19 19:37 Venous blood - Left Arm Blood Culture - Preliminary NO GROWTH AT 48 HOURS Laboratory Tests 11/30/19 12/01/19 12/02/19 21:03 06:58 04:06 WBC 16.3 H 11.4 H Hgb 7.3 L 8.1 L Neutrophils % Neutrophils % (Manual) Band Neuts % (Manual) BUN Creatinine Magnesium SARS-CoV-2 (PCR) Not Detected 12/03/19 12/03/19 12/03/19 04:08 17:32 17:32 WBC Hgb 9.5 L Neutrophils % Neutrophils % (Manual) Band Neuts % (Manual) BUN 32 H Creatinine Magnesium 1.9 SARS-CoV-2 (PCR) 12/05/19 12/06/19 12/06/19 04:40 04:05 04:05 WBC 10.2 15.7 H Hgb 7.8 L 8.2 L Neutrophils % 86.4 H Neutrophils % (Manual) 75 Band Neuts % (Manual) 21 H BUN Creatinine 1.03 Magnesium SARS-CoV-2 (PCR) Radiology Reviewed by me: Yes (PCXR - no significant interval change) EKG Reviewed by me: Yes (Tele - A-fib/paced) Hospitalist ROS - Medication Medications: Active Medications Generic Name Dose Route Start Last Admin Trade Name Freq PRN Reason Stop Dose Admin Acetaminophen 650 mg 11/30/19 20:10 12/01/19 14:33 Acetaminophen 325 Mg Tab PO 650 mg Q4H PRN Administration Headache/Fever Albuterol/Ipratropium 3 ml 12/03/19 22:30 12/07/19 18:19 Ipratropium/Albuterol Sulfate 3 Ml Neb NEB 3 ml [id number] CLAUS Administration Atorvastatin Calcium 10 mg 12/01/19 21:00 12/06/19 20:25 Atorvastatin Calcium 10 Mg Tab PO 10 mg HS CLAUS Administration Carvedilol 12.5 mg 12/04/19 08:00 12/07/19 18:32 Carvedilol 6.25 Mg Tab PO Not Given BID-WM CLAUS Cyanocobalamin 5,000 mcg 12/02/19 09:00 12/07/19 10:31 Cyanocobalamin (Vitamin B-12) 1,000 Mcg Tab PO 5,000 mcg DAILY CLAUS Administration Gabapentin 300 mg 12/01/19 21:00 12/07/19 08:40 Gabapentin 300 Mg Cap PO 300 mg BID CLAUS Administration Meropenem 1 gm/ Device 50 mls @ 100 mls/hr 12/03/19 18:00 12/07/19 18:33 IVPB 50 mls 0200,1000,1800 CLAUS Administration Fentanyl Citrate 2,000 mcg/ 100 mls @ 0 mls/hr 12/03/19 21:00 12/07/19 11:28 Sodium Chloride IV 01/02/20 21:00 100 mls INF CLAUS Administration Protocol Per Protocol Levothyroxine Sodium 100 mcg 12/02/19 06:00 12/07/19 06:30 Levothyroxine Sodium 100 Mcg Tab PO 100 mcg 0600 CLAUS Administration Nystatin 0 gm 12/01/19 21:00 12/07/19 08:40 Nystatin Powder 15 Gm Bot TOP 1 applic BID CLAUS Administration Pantoprazole Sodium 40 mg 12/06/19 21:00 12/07/19 08:40 Pantoprazole 40 Mg Tab PO 40 mg BID CLAUS Administration Pramipexole Dihydrochloride 1 mg 12/01/19 21:00 12/06/19 20:25 Pramipexole Di-Hcl 1 Mg Tab PO 1 mg HS CLAUS Administration Propofol 1,000 mg 12/03/19 21:00 12/07/19 06:30 Propofol 1,000 Mg/100 Ml Vial IV 01/02/20 21:00 1,000 mg INF PRN Administration TO ACHIEVE GOAL RASS Protocol Senna/Docusate Sodium 1 tab 12/02/19 21:00 12/07/19 08:40 Senokot S 8.6-50 Mg Tab PO 1 tab BID CLAUS Administration Sodium Chloride 10 ml 12/03/19 21:00 12/07/19 08:40 Flush - Normal Saline 10 Ml Syringe IVF 10 ml Q12HR CLAUS Administration Tramadol HCl 50 mg 12/01/19 19:05 12/03/19 11:12 Tramadol Hcl 50 Mg Tab PO 50 mg Q6H PRN Administration Moderate Pain (4-6) - Exam General - other findings: sedate on mech vent, opens eyes and bites tube Eye: PERRL, anicteric sclera ENT: normocephalic atraumatic, no oropharyngeal lesions ENT - other findings: ETT in place Neck: supple, symmetric, no JVD, no thyromegaly Heart: no gallops, no rubs, normal peripheral pulses, irregular Heart - other findings: S1, S2 Respiratory: no tachypnea, rhonchi Respiratory - other findings: diminished bilat L>R Gastrointestinal: soft, non-tender, non-distended, normal bowel sounds, no palpable masses Extremities: no cyanosis, 1+ LE edema Skin: normal turgor Neurological - other findings: opens eyes and tracks, bites on ETT tube, nods head Musculoskeletal: generalized weakness Psychiatric: somnolent, lethargic Hosp A/P (1) Acute respiratory failure with hypoxia Code(s): J96.01 - ACUTE RESPIRATORY FAILURE WITH HYPOXIA Status: Acute Plan[facility], family contemplating potential palliative measures (2) Pneumonia Code(s): J18.9 - PNEUMONIA, UNSPECIFIED ORGANISM Status: Acute Qualifiers: Laterality: left Plan: Persistent L -hemithorax opacification, CT's remain in place (3) Pleural effusion, left Code(s): J90 - PLEURAL EFFUSION, NOT ELSEWHERE CLASSIFIED Status: Acute Plan: See above (4) Chronic atrial fibrillation Code(s): I48.20 - CHRONIC ATRIAL FIBRILLATION, UNSPECIFIED Status: Chronic (5) Microcytic anemia Code(s): D50.9 - IRON DEFICIENCY ANEMIA, UNSPECIFIED Status: Acute - Plan 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
[2019-12-07] MEDS: Pramipexole Di-HCl 1 MG TAB PO SCH (20:25)
[2019-12-07] MEDS: Atorvastatin Calcium 10 MG TAB PO SCH (20:26)
[2019-12-08] MEDS: Propofol 1,000 MG/100 ML VIAL IV PRN ×2 (00:02→13:57)
[2019-12-08] MEDS: fentaNYL Citrate/PF 2,000 MCG in Sodium Chloride 0.9% 60 ML IV SCH (01:21)
[2019-12-08] MEDS: MEROPENEM 1 GM/50 ML 1 GM in Premix Bag 1 BAG IVPB SCH ×2 (01:22→10:24)
[2019-12-08 04:51] LABS: Anion Gap 11 mmol/L (10-20); BUN (Urea Nitrogen) 43 mg/dL (9.8-20.1); Calc. Creatinine Clearance 76 mL/min (70-130); Carbon Dioxide 30 mmol/L (23-31); Chloride 104 mmol/L (98-107); Estimated GFR-MDRD 40; Glucose 121 mg/dL (83-110); Potassium 4.4 mmol/L (3.5-5.1); Sodium 141 mmol/L (136-145)
[2019-12-08 05:08] LABS: Band 8 % (5-11); Eosinophils 1 % (0-10); Hemoglobin 8.8 g/dL (12.0-16.0); Hypochromia SLIGHT = 6-15 cells (100X) (0-5/hpf); Lymphocytes 6 % (21-51); MDiff Complete? YES; Mean Corpuscular Hemoglobin 25.4 pg (27.0-31.0); Mean Corpuscular Volume 84.7 fL (78.0-98.0); Mean Platelet Volume 8.8 fL (7.4-10.4); Monocytes 9 % (0-10); Neutrophil 76 % (42-75); Platelet Count 202 thou/uL (130-400); Platelet Morphology Comment Appears Adequate; RBC Distribution Width 17.9 % (11.5-14.5); Red Blood Cell (RBC) Count 3.47 mill/uL (4.20-5.40); White Blood Cell (WBC) Count 9.3 thou/uL (4.8-10.8)
[2019-12-08 05:11] VITALS: BMI 59.6
[2019-12-08] MEDS: Levothyroxine Sodium 100 MCG TAB PO SCH (05:45)
[2019-12-08 07:01] LABS: Actual Bicarbonate (HCO3a) 28.2 mEq/L (22-28); Base Excess (BEa) 3.1 mEq/L (-2.0 to +3.0); CO2 Tension 45.7 mmHg (35.0-45.0); Calcium, Ionized (arterial) 1.11 mmol/L (1.12-1.30); Carboxyhemoglobin (COHb) 0.6 gm% (0.0-3.0); Hemoglobin (Hb) 9.4 g/dL (12.0-16.0); O2 Tension (PaO2), arterial 92.3 mmHg (> 70.0); Potassium - ABG Lab 4.36 mmol/L (3.70-5.30); pH, Arterial 7.41 (7.35-7.45)
[2019-12-08 07:05] LABS: ALV-art Gradient 135.775 mmHg (0-20); Puncture Site RRA
--- NOTE | 2019-12-08 08:13 | RAD ---
PORTABLE CHEST: INDICATION: Pneumonia followup. CCU followup. COMPARISON: 12/07/2019. FINDINGS: Electronic device obscures the left lung base. There is cardiomegaly with vascular congestion simila r to yesterday. There are bilateral effusions. ET tube, tube, and central lines again noted. Chest tube on the left is noted. IMPRESSION: Cardiomegaly with vascular congestion and bilateral effusions do not appear significantly changed fro m yesterday. POS: AGW
[2019-12-08] MEDS: Gabapentin 300 MG CAP PO SCH (08:25)
[2019-12-08] MEDS: Senokot S 8.6-50 MG TAB PO SCH (08:25)
[2019-12-08] MEDS: Carvedilol 6.25 MG TAB PO SCH ×2 (08:30→16:19)
--- NOTE | 2019-12-08 08:59 | PRG ---
DATE OF SERVICE: 12/08/2019 35 minutes critical care time. SUBJECTIVE: She remains intubated on mechanical ventilation. She was awake this morning when I was in the room on 120 mcg/hour fentanyl. The patient was still complaining of pain. OBJECTIVE: VITAL SIGNS: Temperature 97.8, pulse 61, blood pressure 120/55, O2 saturation 96%. Total intake for 24 hours 2156, output 860. HEENT: Unremarkable. NECK: No JVD. LUNGS: Diminished breath sounds on the left compared to right. CARDIAC: S1, S2 regular. ABDOMEN: Soft, obese, nontender, nondistended. EXTREMITIES: Edematous. LABORATORY DATA: ABG; pH 7.41, pCO2 of 47, PO2 of 92, AA gradient 135. She is on SIMV rate 12, tidal volume 450, PEEP 5, pressure support 10, FiO2 of 40%. White blood cell count 9.3, hematocrit 29.4, platelet count 202. Sodium 141, potassium 4.4, chloride 104, CO2 of 30, BUN 43, creatinine 1.3, glucose 121. X-ray shows no significant change. ASSESSMENT: 1. Left lung complex parapneumonic effusion - now status post decortication. 2. Acute respiratory failure requiring mechanical ventilation. 3. Severe neuromuscular weakness. 4. Morbid obesity. PLAN: 1. I tried to put her on pressure support ventilation this morning, but she would hardly take a breath until I went up on the pressure support to 20. I will go ahead and try to decrease her rate so that she will start initiating some breaths on her own. We will try to limit her sedation a little more. My fear is that the biggest return to her weaning will be severe neuromuscular weakness. I am very concerned that she would need a tracheostomy to wean from the ventilator. 2. We will continue the antibiotics. Continue enteral tube feeds. Appreciate Palliative Care's input. The prognosis for this patient is very poor. Job ID: [id number]
[2019-12-08] MEDS ORDERED: Cholecalciferol 1,000 UNITS (25 MCG) TAB PO SCH (09:00)
--- NOTE | 2019-12-08 10:55 | PDOC.PALPN ---
Palliative Progress Note - Subjective Intubated with mechanical ventilation, fentanyl, nutrition via enteral tube feeding, abx therapy - Objective Vital Signs: Vital Signs - Most Recent Temp Pulse Resp BP Pulse Ox 97.8 F 60 11 L 144/57 H 96 12/08/19 04:00 12/08/19 06:55 12/08/19 10:00 12/08/19 08:30 12/08/19 06:53 - Physical Exam Constitutional: ill appearing HEENT: moist MMs, sclera anicteric Respiratory: no wheezing, diminished lung sound Cardiovascular: RRR Gastrointestinal: soft, non-tender Deviation from normal: obese Genitourinary: leblanc catheter Musculoskeletal: edema present Neurology: moves all 4 limbs Skin: no lesions, no rash, bruising, fragile, friable - Assessment (1) Palliative care encounter Code(s): Z51.5 - ENCOUNTER FOR PALLIATIVE CARE Current Visit: Yes Status: Acute (2) Acute respiratory failure with hypoxia Code(s): J96.01 - ACUTE RESPIRATORY FAILURE WITH HYPOXIA Current Visit: Yes Status: Acute (3) Pleural effusion, left Code(s): J90 - PLEURAL EFFUSION, NOT ELSEWHERE CLASSIFIED Current Visit: Yes Status: Acute (4) Pneumonia Code(s): J18.9 - PNEUMONIA, UNSPECIFIED ORGANISM Current Visit: Yes Status: Acute Qualifiers: Laterality: left (5) Chronic atrial fibrillation Code(s): I48.20 - CHRONIC ATRIAL FIBRILLATION, UNSPECIFIED Current Visit: Yes Status: Chronic (6) Acute on chronic systolic CHF (congestive heart failure) Code(s): I50.23 - ACUTE ON CHRONIC SYSTOLIC (CONGESTIVE) HEART FAILURE Current Visit: No Status: Acute (7) Morbid obesity Code(s): E66.01 - MORBID (SEVERE) OBESITY DUE TO EXCESS CALORIES Current Visit: No Status: Chronic (8) Physical deconditioning Code(s): R53.81 - OTHER MALAISE Current Visit: No Status: Chronic - Plan Plan: Son at bedside. Patient daughter and patient to be at bedside this afternoon at 3pm for further discussion in relation to comfort measures. Son describes his mother as feisty, selfless. She has several grandchildren. Emotional support offered to patient son. Revisited health status, answering questions. Family wishing to remain with full resuscitation measures until family meeting at 3 pm. Spiritual care consult placed, notified of family meeting. Please also refer to Palliative Care notes in note section. [30] minutes spent on this encounter with >50% of the time in counseling and coordination of care. - ROS Non Response: due to endotracheal tube, due to mental status
[2019-12-08] MEDS: Nystatin Powder 15 GM BOT TOP SCH (11:41)
[2019-12-08] MEDS: Cyanocobalamin (Vitamin B-12) 1,000 MCG TAB PO SCH (11:59)
[2019-12-08 15:05] VITALS: BP 153/54
[2019-12-08] MEDS: traMADol HCl 50 MG TAB PO PRN (15:41)
[2019-12-08] MEDS ORDERED: Hyoscyamine Sulfate SL 0.125 mg Tablet PO PRN (16:17)
[2019-12-08] MEDS ORDERED: Morphine 10 MG/ML VIAL SLOW IVP PRN (16:18)
[2019-12-08] MEDS ORDERED: Lorazepam 2 MG/ML VIAL SLOW IVP PRN (16:20)
[2019-12-08 16:22] VITALS: TEMP 98.9
[2019-12-08] MEDS ORDERED: Morphine 4 MG/ML VIAL SLOW IVP PRN (16:35)
--- NOTE | 2019-12-08 16:54 | EKG ---
Test Reason : Blood Pressure : / mmHG Vent. Rate : 060 BPM Atrial Rate : 059 BPM P-R Int : 000 ms QRS Dur : 186 ms QT Int : 502 ms P-R-T Axes : 000 023 -01 degrees QTc Int : 502 ms AV sequential or dual chamber electronic pacemaker Confirmed by JJ HENDERSON MD ([id number]), international editorial producer BAR HENDRICKS ([id number]) on 12/08/2019 4:53:47 PM Referred By: Confirmed By:JJ HENDERSON MD
--- NOTE | 2019-12-09 03:29 | DIS ---
DATE OF ADMISSION: 11/30/2019 DATE OF DISCHARGE: 12/08/2019 FINAL DIAGNOSES: 1. Acute hypoxic respiratory failure secondarily to #2. 2. Left-sided pneumonia with parapneumonic effusion, status post decortication and chest tube placement. 3. Chronic atrial fibrillation. 4. Chronic microcytic anemia. 5. Chronic kidney disease, stage 3. 6. Severe deconditioning. 7. Coronary artery disease. 8. [id number]-[id number] mixed type congestive heart failure exacerbation with ejection fraction of 40% to 45%. 9. Hypothyroidism. CONSULTATIONS: 1. Dr. Colon with Pulmonology Service. 2. Dr. Cox with Thoracic Surgery Service. 3. Palliative Care Service. PERTINENT LABORATORY AND X-RAY FINDINGS: Creatinine ranged between 0.92 to 1.61. Estimated GFR ranged between 32 to 53, lactic acid level 0.4. Hemoglobin A1c 5.7. Troponin I negative x3. TSH 0.36. CBC showed a white blood cell count ranging between 9.3 to 16.3, hemoglobin ranged between 7.3 to 9.5. 1. COVID-19 PCR not detected, 11/30/2019. 2. Blood cultures x2 dated 11/30/2019, showed no growth at 5 days. 3. Sputum culture dated 12/03/2019 showed normal respiratory shaun with few yeast. 4. Bronchoalveolar lavage culture dated 12/03/2019 showed normal respiratory shaun. 5. Left pleural fluid culture dated 12/05/2019, showed no growth at 72 hours. 6. Portable chest x-ray dated 11/30/2019 showed bilateral pulmonary edema with questionable infiltrate or aspiration of the left lung base. 7. CT of the abdomen and pelvis dated 12/01/2019, showed left lower lobe consolidation with loculated left pleural effusion, chronic changes noted. 8. 2D transthoracic echocardiogram dated 12/01/2019, showed ejection fraction of 40% to 45%. 9. Abdominal radiographs dated 12/03/2019 showed NG tube overlying the stomach. 10. CT of the chest dated 12/03/2019 showed large loculated left-sided pleural effusion. 11. Complete collapse of the left lower lobe. 12. Mild atelectasis in the right base. 13. Bilateral lower extremity venous Doppler study dated 12/03/2019 showed no evidence for DVT. HOSPITAL COURSE: The patient was initially admitted after presenting with increased shortness of breath in the context of chronic atrial fibrillation, on chronic Eliquis therapy and mixed type congestive heart failure with bilateral pulmonary edema and questionable infiltrate of the left lower lobe. The patient was initially treated with IV Lasix. In addition, initiated on broad-spectrum IV antibiotic therapy. The patient was given IV Levaquin and general pulmonary supportive management in addition to the supplemental oxygen. The patient was evaluated by the Pulmonology Service after CT of the chest showed loculated pleural effusion and worsening respiratory failure with eventual acute hypercapnic hypoxic respiratory failure requiring transfer to the Critical Care Unit. The patient was initially placed on BiPAP noninvasive mechanical ventilation, however, was unable to tolerate with worsening acidosis and elevated pCO2. The patient was intubated and placed on mechanical ventilation and underwent evaluation of the left pleural effusion. A bronchoscopy was performed with copious mucoid secretions from the left mainstem bronchus removed. A thoracentesis was also performed, however, no specific fluid was withdrawn due to loculation. Consultation was obtained by thoracic surgery Service at which point, the patient was noted with empyema and loculated effusion of the left chest wall, undergoing a left thoracoscopy with decortication on 12/05/2019. The patient underwent subsequent placement of two left-sided chest tubes without specific improvement in the appearance on chest imaging. The patient continued on broad-spectrum antibiotic therapy as well as mechanical ventilation, however, was not able to wean appropriately due to severe neuromuscular weakness and prolonged ICU stay. Due to the patient's overall comorbid conditions, severe deconditioning, and guarded prognosis, discussions were had with the family regarding comfort care and goals of care. The family decided to pursue comfort and palliative measures as patient would not wish to continue in this state. The decision was made to terminally extubate the patient on 12/08/2019 at 1635 hours and patient at 1715 p.m. on 12/08/2019 with family present at the bedside. Decedent affairs were notified with transport of the Decedent pending. Job ID: [id number] [facility]
== END 2019-12-08 18:10 | disposition expired | DRG 163 ==
LOC: ERS 16:38 → 2NO 19:41 → IMCU/EMU 12-03 18:31 → CCU 12-03 18:52
PROVIDERS: ADMIT Internal Medicine; ATTEND Internal Medicine
PROC: 0B978ZZ Drainage of Left Main Bronchus, Via Natural or Artificial Opening Endoscopic (ICD-10-PCS; principal; 2019-12-03)
PROC: 0BH18EZ Insertion of Endotracheal Airway into Trachea, Via Natural or Artificial Opening Endoscopic (ICD-10-PCS; 2019-12-03)
PROC: 5A1955Z Respiratory Ventilation, Greater than 96 Consecutive Hours (ICD-10-PCS; 2019-12-03)
PROC: 02HV33Z Insertion of Infusion Device into Superior Vena Cava, Percutaneous Approach (ICD-10-PCS; 2019-12-03)
PROC: B548ZZA Ultrasonography of Superior Vena Cava, Guidance (ICD-10-PCS; 2019-12-03)
PROC: 0WJB3ZZ Inspection of Left Pleural Cavity, Percutaneous Approach (ICD-10-PCS; 2019-12-03)
PROC: 0BNL4ZZ Release Left Lung, Percutaneous Endoscopic Approach (ICD-10-PCS; 2019-12-05)
PROC: 0BCL4ZZ Extirpation of Matter from Left Lung, Percutaneous Endoscopic Approach (ICD-10-PCS; 2019-12-05)
DX: J18.9 Pneumonia, unspecified organism (principal); J96.01 Acute respiratory failure with hypoxia; I50.23 Acute on chronic systolic (congestive) heart failure; J86.9 Pyothorax without fistula; Z51.5 Encounter for palliative care; I13.0 Hypertensive heart and chronic kidney disease with heart failure and stage 1 through stage 4 chronic kidney disease, or unspecified chronic kidney disease; J44.1 Chronic obstructive pulmonary disease with (acute) exacerbation; I48.20 Chronic atrial fibrillation, unspecified; N17.9 Acute kidney failure, unspecified; J98.11 Atelectasis; Z68.43 Body mass index [BMI] 50.0-59.9, adult; K21.9 Gastro-esophageal reflux disease without esophagitis; G25.81 Restless legs syndrome; E78.00 Pure hypercholesterolemia, unspecified; I25.10 Atherosclerotic heart disease of native coronary artery without angina pectoris; E03.9 Hypothyroidism, unspecified; E11.22 Type 2 diabetes mellitus with diabetic chronic kidney disease; F32.9 Major depressive disorder, single episode, unspecified; F41.9 Anxiety disorder, unspecified; D50.9 Iron deficiency anemia, unspecified; G47.33 Obstructive sleep apnea (adult) (pediatric); E66.01 Morbid (severe) obesity due to excess calories; R53.81 Other malaise; D63.1 Anemia in chronic kidney disease; N18.30 Chronic kidney disease, stage 3 unspecified; Z90.49 Acquired absence of other specified parts of digestive tract; Z90.710 Acquired absence of both cervix and uterus; Z88.8 Allergy status to other drugs, medicaments and biological substances; Z88.0 Allergy status to penicillin; Z79.899 Other long term (current) drug therapy; Z79.01 Long term (current) use of anticoagulants; Z95.0 Presence of cardiac pacemaker; Z95.828 Presence of other vascular implants and grafts; Z20.828 Contact with and (suspected) exposure to other viral communicable diseases
CPT/HCPCS: 31624; 36415; 36416; 36430; 71045; 71250; 74018; 74176; 80048; 80053; 80202; 82550; 82805; 83036; 83605; 83690; 83735; 83880; 84443; 84484; 85025; 85027; 86850; 86900; 86901; 87040; 87070; 87205; 87635; 93005; 93010; 93306; 93798; 93970; 94002; 94003; 94640; 94644; 96365; 96366; 96367; 96368; 96375; C1751; C9113; J1100; J1940; J1956; J2060; J2185; J2270; J2370; J2704; J3010; J3370; J3475; J3490; J7030; J7611; J7620; P9016; U0003